=== PATIENT | male | born 1990 | race Caucasian/White ===

== ENCOUNTER → 2019-07-05 13:22 | Outpatient (BNVA) | payer OTHER, SELFPAY | PROVIDERS: Family Provider Nurse Practitioner; PCP Nurse Practitioner; Visit Provider Psychiatry & Neurology Psychiatry | DX: F41.1 Generalized anxiety disorder (principal); F33.1 Major depressive disorder, recurrent, moderate | CPT/HCPCS: 99214 ==

== ENCOUNTER 2020-09-22 13:02 | Emergency (ER) | payer SELFPAY ==
[2020-09-22 13:08] VITALS: BP 145/83; PULSE 91; RESP 18; TEMP 36.8; O2SAT 94; BMI 35.9
--- NOTE | 2020-09-22 14:14 | ED_ITS ---
HPI - Abdominal Pain General: Chief Complaint: Abdominal Pain Stated Complaint: severe lower abd pains Time Seen by Provider: 09/22/20 14:04 History of Present Illness: HPI narrative: Patient is a 30-year-old male comes to the ED with abdominal pain. Patient was seen at urgent care today and was sent here for abdominal imaging. Patient has had diarrhea for the past 3 months. Yesterday he said he started having blood in the stool. He says today there is less blood in his stool currently. He says he is having 5+ episodes of diarrhea Monday. Abdominal pain is located in the lower part of the abdomen bilaterally and he rates the pain currently a 7 out of 10. denies any fever, nausea or vomiting. Associated Symptoms: Reports diarrhea; Denies chills, constipation, dysuria, fever(s), hematochezia, hematuria, nausea and vomiting Review of Systems Const: Denies: fever(s), chills or fatigue Eyes: Denies: change in vision or eye discomfort ENMT: Denies: throat pain, odynophagia, nasal discharge or nasal congestion Card: Denies: chest pain, palpitations, edema, swelling of feet/ankles, dyspnea on exertion or orthopnea Resp: Denies: dyspnea, productive cough or non-productive cough GI: Reports: abdominal pain and diarrhea; Denies: nausea, vomiting, constipation or hematochezia : Denies: flank pain, difficulty urinating, dysuria or hematuria Musc: Denies: neck pain, back pain or extremity swelling Skin/Breast: Denies: rash or new lesions Neuro: Denies: headache(s), numbness in extremities or weakness in extremities PFS ED PFSH: Social History Smoking and tobacco status: current every day smoker cigarettes Quit status (tobacco): considering quitting Second hand smoke exposure: Yes Alcohol intake: current Alcohol intake frequency: few times a week Desire information about alcohol rehabilitation?: No Desire information about substance/drug rehabilitation?: No Physical Exam Const: COMMON NORMALS: no acute distress, patient oriented x3 and alert GENERAL APPEARANCE: cooperative and comfortable HENMT: COMMON NORMALS: normocephalic HEAD & SCALP: normocephalic MOUTH: Normal oral and palatal mucosa present THROAT: posterior oropharynx normal and uvula midline Eye: COMMON NORMALS: Equal, round and reactive pupils present PUPIL: Yes Equal, round and reactive pupils present Neck/C-Spine: COMMON NORMALS: supple GENERAL: Yes normal visual inspection Resp: COMMON NORMALS: normal respiratory effort, No retractions, No use of accessory muscles and clear to auscultation bilaterally AUSCULTATION: clear to auscultation bilaterally Cardio: COMMON NORMALS: regular rate, regular rhythm, S1 normal heart sound present, S2 normal heart sound present, No gallops present (Cardio), No clicks present (Cardio), No murmurs present (Cardio) and Peripheral pulses 2+ throughout RATE: regular rate RHYTHM: regular rhythm HEART SOUNDS: S1 normal heart sound present and S2 normal heart sound present PERIPHERAL PULSES: Peripheral pulses 2+ throughout GI: COMMON NORMALS: Normal to inspection, nondistended, normoactive bowel sounds present, Soft to palpation and no masses PALPATION: Yes Soft to palpation and Yes Tenderness to palpation present (GI) (Bilateral lower abdominal tenderness.) Details: LLQ and RLQ : COMMON NORMALS: Yes no CVA tenderness BLADDER/KIDNEY EXAM: Yes no CVA tenderness Back/Pelvis: COMMON NORMALS: no CVA tenderness Extremity: COMMON NORMALS: normal to inspection and no pedal edema Neuro: COMMON NORMALS: patient oriented x3 SENSORIUM/ORIENTATION: Yes alert GAIT: Yes Normal gait present Skin: GENERAL SKIN EXAM: dry skin Course Vital Signs: Vital signs: Vital Signs Temperature 98.3 F 09/22/20 13:08 Pulse Rate 92 09/22/20 15:35 Respiratory Rate 18 09/22/20 13:08 Blood Pressure 130/94 09/22/20 15:35 Pulse Oximetry 98 09/22/20 15:35 MDM - Abdominal Pain MDM Narrative: Medical decision making narrative: Patient is a 30 male that comes to the ED with some mild lower abdominal pain and 3 months of diarrhea. He was referred here to the ED by urgent care. Patient appeared nontoxic and in no acute distress and he had some cramping lower abdominal pain that improves after bowel movements. Patient appears in no acute distress or pain. He had some mild lower abdominal tenderness upon palpation. Rest of exam is benign. CBC, CMP and lipase were unremarkable. CT of the abdomen showed no acute findings to explain patient's symptoms. Patient diagnosed with gastroenteritis and discharged home with a prescription for Bentyl and Zofran. He was told to follow-up with his PCP in 7 to 10 days for reevaluation. Return to ED precautions given. Patient understood agree with plan. Lab Data: Attestation: I reviewed the patient's lab results. Labs: Lab Results 09/22/20 09/22/20 09/22/20 Range/Units 14:10 14:18 14:18 WBC 11.3 H (4.0-10.0) 10^3/ uL RBC 5.37 H (4.1-5.3) 10^6/u L Hgb 17.7 H (11.7-16.6) g/dL Hct 51.3 (42.0-52.0) % MCV 95.5 H (80-94) fL MCH 33.0 (28.0-34.0) pg MCHC 34.5 (30.0-36.0) g/dL RDW 11.9 L (12.1-15.1) % Plt Count 289 (130-400) 10^3/c mm MPV 9.4 (7.4-10.4) fL Neut % (Auto) 65.7 % Lymph % (Auto) 23.1 % Borden % (Auto) 7.7 % Eos % (Auto) 1.8 % Baso % (Auto) 0.8 % Neut # (Auto) 7.42 (1.8-7.7) 10^3/u L Lymph # (Auto) 2.6 (0.8-4.8) 10^3/u L Borden # (Auto) 0.9 (0.2-0.9) 10^3/u L Eos # (Auto) 0.2 (0.0-0.8) 10^3/u L Baso # (Auto) 0.1 (0.0-0.1) 10^3/u L Nucleated RBC % (a uto) 0 % Nucleated RBCs # 0.0 /100WBC Sodium 140 (136-145) mmol/L Potassium 3.7 (3.5-5.1) mmol/L Chloride 103 (98-107) mmol/L Carbon Dioxide 24 (22-29) mmol/L Anion Gap 16.7 (5-19) BUN 6 (6-20) mg/dL Creatinine 0.7 (0.7-1.2) mg/dL GFR Calculation 134.3 H (90-130) mL/min Glucose 91 (65-115) mg/dL Calculated Osmolal ity 287 (285-295) mOsm/k g Calcium 9.0 (8.5-10.5) mg/dL Total Bilirubin 0.8 (0.15-1.2) mg/dL AST 110 H (0-40) U/L ALT 196 H (0-41) U/L Alkaline Phosphata se 75 (40-130) IU/L Total Protein 6.9 (6.6-8.7) g/dL Albumin 4.7 (3.5-5.2) g/dL Globulin 2.2 (1.3-4.6) g/dL Lipase 18 (13-60) U/L Urine Color Straw (Yellow) Urine Appearance Clear (CLEAR) Urine pH 6 (5-7) Ur Specific Gravit y 1.000 L (1.005-1.030) Urine Protein Neg (Negative) Urine Glucose (UA) Norm (Normal) Urine Ketones Negative (Negative) Urine Blood Neg (Negative) Urine Nitrate Negative (Negative) Urine Bilirubin Neg (Negative) Urine Urobilinogen Norm (Negative) mg/dL Ur Leukocyte Sindy ase Negative (Negative) Imaging Data ^: CT Abd/Pel: Attestation: I personally reviewed and interpreted this imaging study as follows: Radiologist's impression: [address] [address] [address] Scan Report Signed Patient: Shahriar Baker Unit #: [id number] : 1990 Age/Sex: 30 / M ADM Date: 09/22/20 Loc: ER Room/Bed: Attending Dr: Ordering Provider/Ordering MD: Armand Tena Date of Service: 09/22/20 Procedure(s): CT abdomen pelvis w con* [id number] Accession Number(s): [id number] Report Number: [id number] WS: [id number] CT ABDOMEN PELVIS TECHNIQUE: Contrast-enhanced CT of the abdomen and pelvis with coronal and sagittal reformatted images. CLINICAL INFORMATION: lower abdominal pain and diarrhea COMPARISON: October 29, 2014 DLP: 1963.[address] scans at [facility] use at least one of these dose optimization techniques: automated exposure control; mA and/or kV adjustment per patient size (includes targeted exams where dose is matched to clinical indication); or iterative reconstruction. FINDINGS: Diffuse fatty infiltration of the liver. Hepatomegaly. Normal spleen. Normal GE junction. Adrenal glands are normal. Normal pancreatic parenchymal enhancement. Lung bases are well aerated. Subsegmental atelectasis in the lingula. Normal renal parenchymal enhancement. No hydronephrosis. No abdominal or pelvic lymphadenopathy. No inguinal lymphadenopathy. Normal sigmoid colon. A few colonic diverticuli. No evidence of diverticulitis. Colon is otherwise normal in appearance. Normal terminal ileum. No evidence of small or large bowel obstruction. CT/CT abdomen pelvis w con* [id number] IMPRESSION: 1. Hepatomegaly with diffuse fatty infiltration liver. 2. Normal sigmoid colon. A few colonic diverticuli. No evidence of acute diverticulitis. 3. No evidence of small or large bowel obstruction. 4. Fat-containing umbilical hernia. 5. No free fluid in the abdomen or pelvis. 6. No other significant findings. Dictated By: Michael Maguire MD Signed By: Michael Maguire MD Signed Date/Time: 09/22/20 1500 DD/ 1444 Discharge Plan Discharge Patient Disposition: Home Clinical Impression: Gastroenteritis Condition: Stable Prescriptions: New dicyclomine 20 mg tablet 20 mg PO QID PRN (Reason: abdominal pain) Qty: 30 RF: 0 Zofran 4 mg tablet 4 mg PO Q8H PRN (Reason: nausea and vomiting) Qty: 20 RF: 0 No Action ibuprofen 200 mg tablet 800 mg PO Q6H PRN (Reason: fever or pain) RF: 0 acetaminophen [Tylenol] 325 mg capsule 325 mg PO QID PRN (Reason: Pain) RF: 0 Prilosec OTC 20 mg Tablet,Delayed Release (Dr/Ec) 20 mg PO BID RF: 0 Discharge Orders: Discharge ED (Routine); Ordered 09/22/20 Ordered By: Armand Tena Discharge Diet: Advance as tolerated and Clear Liquid Discharge Activity: Increase activity as tolerated Patient Instructions: Gastroenteritis (ED), Opioid Safety Activity Restrictions/Additional Instructions: Follow-up with medical provider as directed. Take medications as prescribed. Start with a clear liquid diet then advance diet as tolerated. Return to the ER or your medical provider if condition worsens.Please read and understand discharge instructions. Thank you for choosing [facility] for your healthcare needs today. Please realize this is an emergency room and that we are providing you with a medical screening exam and this may not be complete and all inclusive of all the testing and or work up that you may need to determine your ailment or severity of your illness. It is very important that you follow up as instructed or that you return to the Emergency Department should you have concerns or if your condition changes or worsens in any way. Coding Level of Care Code ED Bean Picker Machine Operator for Wilder Jackson Exam Comprehensive
[2020-09-22 14:23] LABS: Add Urine Microscopic? NO; Charge for UA Resulting for Rev
[2020-09-22] MEDS: sodium chloride 0.9% 1,000 ML 999 ML IV (14:24)
[2020-09-22] MEDS: ondansetron 2 mg/ML SDV 2 mL 4 MG IVP (14:25)
--- NOTE | 2020-09-22 14:25 | CT_ITS ---
WS: [id number] CT ABDOMEN PELVIS TECHNIQUE: Contrast-enhanced CT of the abdomen and pelvis with coronal and sagittal reformatted image s. CLINICAL INFORMATION: lower abdominal pain and diarrhea COMPARISON: October 29, 2014 DLP: 1963.[address] scans at [facility] use at least one of these dose optimization techniques: automat ed exposure control; mA and/or kV adjustment per patient size (includes targeted exams where dose is matched to clinical indication); or iterative reconstruction. FINDINGS: Diffuse fatty infiltration of the liver. Hepatomegaly. Normal spleen. Normal GE junction. Adrenal gla nds are normal. Normal pancreatic parenchymal enhancement. Lung bases are well aerated. Subsegmental atelectasis in the lingula. Normal renal parenchymal enhancement. No hydronephrosis. No abdominal or pelvic lymphadenopathy. No inguinal lymphadenopathy. Normal sigmoid colon. A few colonic diverticuli. No evidence of diverticulitis. Colon is otherwise no rmal in appearance. Normal terminal ileum. No evidence of small or large bowel obstruction. CT/CT abdomen pelvis w con* [id number] IMPRESSION: 1. Hepatomegaly with diffuse fatty infiltration liver. 2. Normal sigmoid colon. A few colonic diverticuli. No evidence of acute diver ticulitis. 3. No evidence of small or large bowel obstruction. 4. Fat-containing umbilical hernia. 5. No free fluid in the abdomen or pelvis. 6. No other significant findings.
[2020-09-22 14:28] VITALS: BP 132/96; PULSE 89; O2SAT 96
[2020-09-22 14:31] LABS: Basophils # 0.1 10^3/uL (0.0-0.1); Basophils % 0.8 %; Eosinophils # 0.2 10^3/uL (0.0-0.8); Eosinophils % 1.8 %; Hematocrit 51.3 % (42.0-52.0); Hemoglobin 17.7 g/dL (11.7-16.6); Lymphocytes # 2.6 10^3/uL (0.8-4.8); Lymphocytes % 23.1 %; Mean Corpuscular HGB Conc 34.5 g/dL (30.0-36.0); Mean Corpuscular Volume 95.5 fL (80-94); Mean Platelet Volume 9.4 fL (7.4-10.4); Monocytes # 0.9 10^3/uL (0.2-0.9); Monocytes % 7.7 %; Neutrophils # 7.42 10^3/uL (1.8-7.7); Neutrophils % 65.7 %; Nucleated Red Blood Cells % 0 %; Platelet Count 289 10^3/cmm (130-400); Red Blood Count 5.37 10^6/uL (4.1-5.3); Red Cell Distribution Width 11.9 % (12.1-15.1); White Blood Count 11.3 10^3/uL (4.0-10.0)
[2020-09-22] MEDS: iohexol 300 mg/mL 100 mL Btl IV (14:35)
[2020-09-22 14:40] LABS: Bilirubin Urine Neg (Negative); Blood Urine Neg (Negative); Glucose Urine UA Norm (Normal); Ketones Urine Negative (Negative); Leukocyte Esterase Urine Negative (Negative); Nitrate Urine Negative (Negative); Protein Urine Neg (Negative); Urine Appearance Clear (CLEAR); Urine Color Straw (Yellow); Urobilinogen Urine Norm (Negative); pH Urine 6 (5-7)
[2020-09-22 15:11] LABS: Alanine Aminotransferase 196 U/L (0-41); Albumin Level 4.7 g/dL (3.5-5.2); Alkaline Phosphatase 75 IU/L (40-130); Anion Gap 16.7 (5-19); Aspartate Amino Transferase 110 U/L (0-40); Blood Urea Nitrogen 6 mg/dL (6-20); Carbon Dioxide 24 mmol/L (22-29); Chloride 103 mmol/L (98-107); Globulin 2.2 g/dL (1.3-4.6); Glomerular Filtration Rate 134.3 mL/min (90-130); Glucose 91 mg/dL (65-115); Lipase 18 U/L (13-60); Osmolality Calculated 287 mOsm/kg (285-295); Potassium 3.7 mmol/L (3.5-5.1); Sodium 140 mmol/L (136-145); Total Bilirubin 0.8 mg/dL (0.15-1.2); Total Protein 6.9 g/dL (6.6-8.7)
[2020-09-22 15:35] VITALS: BP 130/94; PULSE 92; O2SAT 98
== END 2020-09-22 15:35 | disposition home or self-care (01) ==
PROVIDERS: Family Medicine; Emergency Provider Physician Assistant
DX: K52.9 Noninfective gastroenteritis and colitis, unspecified (principal); F17.210 Nicotine dependence, cigarettes, uncomplicated
CPT/HCPCS: 74177; 80053; 81003; 83690; 85025; 96361; 96374; 99283; J2405; J7030; Q9967

== ENCOUNTER → 2020-11-18 11:58 | Outpatient (BNVA) | payer OTHER, SELFPAY | PROVIDERS: Visit Provider Nurse Practitioner Family | DX: Z20.822 Contact with and (suspected) exposure to COVID-19 (principal) | CPT/HCPCS: 87635 ==

== ENCOUNTER 2020-12-21 16:48 | Emergency (ER) | payer SELFPAY ==
[2020-12-21 17:16] VITALS: BP 142/92; PULSE 111; RESP 16; TEMP 36.9; O2SAT 97; BMI 35.6
--- NOTE | 2020-12-21 18:00 | USR_ITS ---
PROCEDURE INFORMATION: Exam: US Duplex Left Lower Extremity Veins, Limited Exam date and time: 12/21/2020 6:00 PM Age: 30 years old Clinical indication: Pain; Leg, lower; Left; Additional info: Swelling and calf tenderness TECHNIQUE: Imaging protocol: Real-time Duplex ultrasound of the Left Lower Extremity with 2-D kelley scale, color Doppler flow and spectral waveform analysis with image documentation. Limited exam focused on the left lower extremity veins. COMPARISON: CT abdomen pelvis w con* [id number] 09/22/2020 2:31 PM FINDINGS: Left deep veins: DVT in the peroneal vein. Otherwise, the common femoral, femoral, proximal profunda femoral and popliteal veins are patent without thrombus. Left superficial veins: Unremarkable. Saphenofemoral junction is patent without thrombus. Soft tissues: Unremarkable. US/CV venous duplex [facility] [id number] IMPRESSION: DVT in the peroneal vein.
--- NOTE | 2020-12-21 18:42 | ED_ITS ---
HPI - Extremity Problem General: Chief complaint: Extremity Injury, Lower Stated complaint: Left Leg Pain in lower half Time Seen by Provider: 12/21/20 18:42 History of Present Illness: HPI Narrative: Mr. Baker is a 30-year-old gentleman with history of tobaccoism and IBS who presents the emergency department due to lower extremity injury. He first noticed dull aching which was progressive in his left calf area on 12/16. He denies specific known provoking injury, laceration, bug bite, or movement. Since that time it has continued and has continued to worsen. He now has associated lower extremity edema. His symptoms are worse with palpation and movement but do not go with rest. No sensory changes. He denies similar episodes in the past. He does have positive family history for blood clots. No recent long travel or surgeries. No other changes in health, exacerbating, or alleviating factors identified. Review of Systems General: Reports: 10 or more systems reviewed and unremarkable except in HPI and below Narrative: CONSTITUTIONAL: denies fever, fatigue, weakness EYES - denies pain, denies loss of vision EARS - denies ear issues. NOSE - denies congestion or rhinorrhea. THROAT - denies sore throat or difficulty swallowing. CARDIOVASCULAR - denies chest pain and palpitations RESPIRATORY - denies shortness of breath and cough GASTROINTESTINAL - denies abdominal pain, no nausea vomiting, no changes in bowel habits GENITOURINARY - denies dysuria or urinary frequency MUSCULOSKELETAL-see HPI SKIN - denies rashes or new changed skin lesions NEUROLOGIC - denies focal weakness or sensory changes HEMATOLOGIC/LYMPHATIC - denies easy bruising or lymphadenopathy. [facility] ED PFSH: Social History Smoking and tobacco status: current every day smoker cigarettes Second hand smoke exposure: Yes Alcohol intake: current Alcohol intake frequency: few times a week Desire information about alcohol rehabilitation?: No Desire information about substance/drug rehabilitation?: No Physical Exam Narrative: EXAM NARRATIVE: GENERAL/CONSTITUTIONAL - well-appearing. No acute distress. Eyes - PERRL, no conjunctival injection ENMT - Atraumatic external nose and ears. Moist mucous membranes NECK - supple. trachea midline CARDIOVASCULAR - regular rate and rhythm. Peripheral pulses 2+ and equal RESPIRATORY -clear to auscultation bilaterally. No retractions or accessory muscle use. ABDOMEN/GI - Nontender/Nondistended. No tenderness to percussion or evidence of peritonitis MSK -left lower extremity with swelling, overlying skin discoloration on the posterior calf with tenderness to palpation. No evidence of cellulitis or rash/vesicular skin lesions. SKIN - Warm, Dry NEURO - alert and appropriately oriented. strength and sensation intact. Moves all extremities equally. PSYCH - Appropriate mood and affect Course ED course: - Patient was seen and evaluated by me at bedside - Patient placed on cardiac monitors, IV access obtained - Initial evaluation notable for calf swelling as noted above with tenderness palpation - Imaging notable for DVT - Upon serial reexamination after treatment the patient was similar - Based on patient history, evaluation, labs, and imaging as interpreted the most likely cause of the patient's condition is DVT - The results of ED evaluation were discussed with the patient including prescriptions and/or symptomatic cares (if applicable) including appropriate and responsible use as well as risk of bleeding, followup plan, and return precautions. The patient verbalized understanding and felt safe for discharge. - Patient discharged in satisfactory condition. Vital Signs: Vital signs: Vital Signs Temperature 98.5 F 12/21/20 17:16 Pulse Rate 99 12/21/20 20:52 Respiratory Rate 16 12/21/20 20:52 Blood Pressure 132/114 12/21/20 20:52 Pulse Oximetry 97 12/21/20 20:52 MDM - Extremity (Nontraumatic) Medical Records: Attestation: I reviewed the patient's medical records. Lab Data: Attestation: I reviewed the patient's lab results. Discharge Plan Discharge Patient Disposition: Home Clinical Impression: DVT (deep venous thrombosis) Condition: Stable Prescriptions: Luis E Dewey DVT-PE Treat 30D Start 5 mg (74 tabs) tablets,dose pack See Rx Instructions .ROUTE .COMPLEX Qty: 74 RF: 0 oxycodone 5 mg tablet 5 mg PO Q4H PRN (Reason: pain) Qty: 10 RF: 0 No Action ibuprofen 200 mg tablet 800 mg PO Q6H PRN (Reason: fever or pain) RF: 0 acetaminophen [Tylenol] 325 mg capsule 325 mg PO QID PRN (Reason: Pain) RF: 0 omeprazole magnesium [Prilosec OTC] 20 mg Tablet,Delayed Release (Dr/Ec) 20 mg PO BID RF: 0 dicyclomine 20 mg tablet 20 mg PO QID PRN (Reason: abdominal pain) Qty: 30 RF: 0 Discharge Orders: Discharge ED (Routine); Ordered 12/21/20 Ordered By: Lex Brandon Discharge Diet: Usual diet Discharge Activity: Resume usual activity Patient Instructions: Deep Venous Thrombosis (ED), Opioid Safety Activity Restrictions/Additional Instructions: Thank you for visiting the emergency department. You were seen and evaluated for leg pain. He was found to have a deep vein thrombosis which will be treated with a medication called Eliquis. As discussed this increases risk of major or minor bleeding. Please follow-up with your primary care provider. Please return to the emergency department for any trauma, bleeding, uncontrolled pain, or anything else that you are concerned about and feel needs emergency department evaluation. Stand Alone Forms: Work/School Release Coding Level of Care Code ED Mandolin Repairer for Wilder Jackson
[2020-12-21 19:10] VITALS: BP 136/94; PULSE 98; RESP 16; O2SAT 97
[2020-12-21] MEDS: apixaban 5 mg Tablet 10 MG PO (20:33)
[2020-12-21 20:52] VITALS: BP 132/114; PULSE 99; RESP 16; O2SAT 97
== END 2020-12-21 20:53 | disposition home or self-care (01) ==
PROVIDERS: Emergency Provider Emergency Medicine
DX: I82.452 Acute embolism and thrombosis of left peroneal vein (principal); F17.210 Nicotine dependence, cigarettes, uncomplicated
CPT/HCPCS: 93971; 99283

== ENCOUNTER 2021-01-04 11:19 | Emergency (ER) | payer SELFPAY ==
[2021-01-04 11:45] VITALS: BP 135/82; PULSE 117; RESP 18; TEMP 36.6; O2SAT 92; BMI 35.6
--- NOTE | 2021-01-04 12:02 | XR_ITS ---
WS: [id number] Exam: XR chest 1V portable [id number] Date/Time of Exam: 01/04/2021 12:22 PM Reason For Exam: cough and fever Comparison 01/04/2021 Findings: The lungs are clear and fully expanded. Costophrenic angles are sharp. No infiltrates. Bronchovascula r relief appears normal. Cardiac silhouette is unremarkable. Bony elements are intact. XR/XR chest 1V portable [id number] IMPRESSION: Unremarkable chest radiograph.
[2021-01-04 15:07] LABS: Basophils # 0.1 10^3/uL (0.0-0.1); Basophils % 0.7 %; Eosinophils # 0.1 10^3/uL (0.0-0.8); Eosinophils % 0.7 %; Hematocrit 54.1 % (42.0-52.0); Hemoglobin 18.4 g/dL (11.7-16.6); Lymphocytes # 2.8 10^3/uL (0.8-4.8); Lymphocytes % 18.8 %; Mean Corpuscular Hemoglobin 34.6 pg (28.0-34.0); Mean Corpuscular Volume 101.7 fl (80-94); Mean Platelet Volume 9.3 fL (7.4-10.4); Monocytes # 1.3 10^3/uL (0.2-0.9); Monocytes % 8.5 %; Neutrophils # 10.51 10^3/uL (1.8-7.7); Neutrophils % 70.6 %; Nucleated Red Blood Cells % 0 %; Platelet Count 315 10^3/cmm (130-400); Red Blood Count 5.32 10^6/uL (4.1-5.3); Red Cell Distribution Width 12.8 % (12.1-15.1); White Blood Count 14.9 10^3/uL (4.0-10.0)
[2021-01-04 15:17] LABS: Alanine Aminotransferase 170 U/L (0-41); Albumin Level 4.5 g/dL (3.5-5.2); Alkaline Phosphatase 93 IU/L (40-130); Anion Gap 19.3 (5-19); Aspartate Amino Transferase 107 U/L (0-40); Blood Urea Nitrogen 4 mg/dL (6-20); Calcium 9.7 mg/dL (8.5-10.5); Carbon Dioxide 26 mmol/L (22-29); Chloride 97 mmol/L (98-107); Globulin 2.8 g/dL (1.3-4.6); Glomerular Filtration Rate 115.1 mL/min (90-130); Glucose 108 mg/dL (65-115); Lipase 14 U/L (13-60); Osmolality Calculated 285 mOsm/kg (285-295); Potassium 3.3 mmol/L (3.5-5.1); Sodium 139 mmol/L (136-145); Total Bilirubin 0.6 mg/dL (0.15-1.2); Total Protein 7.3 g/dL (6.6-8.7)
--- NOTE | 2021-01-04 16:06 | W.ED.URI ---
HPI - URI/Sore Throat General: Chief Complaint: Upper Respiratory Infection Stated Complaint: TROUBLE BREATHING/FEVER/COUGH N/V Time Seen by Provider: 01/04/21 15:39 History of Present Illness: HPI Narrative: Patient is a 30-year-old male comes to the ED with upper respiratory symptoms. Symptoms started approximately 2 days ago. He is complaining of having a fever, cough and nasal congestion drainage. He says his cough is productive and he gets up a yellow and white sputum. He is also explained of having some body aches. He has not had any known Covid exposures. He is able to keep food and fluids down. Associated symptoms: Reports diarrhea (IBS), fever(s), nasal congestion, nausea (resolved) and vomiting (resolved); Deny abdominal pain, chills, chest pain or headache(s) Review of Systems Const: Reports: fever(s) and body aches; Denies: chills or fatigue Eyes: Denies: change in vision or eye discomfort ENMT: Reports: throat pain, nasal discharge and nasal congestion; Denies: odynophagia Card: Denies: chest pain, palpitations, edema, swelling of feet/ankles, dyspnea on exertion or orthopnea Resp: Reports: productive cough; Denies: dyspnea or non-productive cough GI: Reports: nausea (resolved), vomiting (resolved) and diarrhea (IBS); Denies: abdominal pain, constipation or hematochezia : Denies: flank pain, difficulty urinating, dysuria or hematuria Musc: Denies: neck pain, back pain or extremity swelling Skin/Breast: Denies: rash or new lesions Neuro: Denies: headache(s), numbness in extremities or weakness in extremities PFS ED PFSH: Social History Smoking and tobacco status: current every day smoker cigarettes Second hand smoke exposure: Yes Alcohol intake: current Alcohol intake frequency: few times a week Desire information about alcohol rehabilitation?: No Desire information about substance/drug rehabilitation?: No Physical Exam Const: COMMON NORMALS: no acute distress, patient oriented x3 and alert GENERAL APPEARANCE: cooperative and comfortable HENMT: COMMON NORMALS: normocephalic HEAD & SCALP: normocephalic MOUTH: Normal oral and palatal mucosa present THROAT: posterior oropharynx normal and uvula midline Eye: GENERAL EYE: appearance normal, both eyes and all related structures Neck/C-Spine: COMMON NORMALS: supple GENERAL: Yes normal visual inspection Resp: COMMON NORMALS: normal respiratory effort, No retractions, No use of accessory muscles and clear to auscultation bilaterally AUSCULTATION: clear to auscultation bilaterally Cardio: COMMON NORMALS: regular rate, regular rhythm, S1 normal heart sound present, S2 normal heart sound present, No gallops present (Cardio), No clicks present (Cardio), No murmurs present (Cardio) and Peripheral pulses 2+ throughout RATE: regular rate RHYTHM: regular rhythm HEART SOUNDS: S1 normal heart sound present and S2 normal heart sound present PERIPHERAL PULSES: Peripheral pulses 2+ throughout GI: COMMON NORMALS: Normal to inspection, nondistended, normoactive bowel sounds present, Soft to palpation, non-tender and no masses PALPATION: Yes Soft to palpation : COMMON NORMALS: Yes no CVA tenderness BLADDER/KIDNEY EXAM: Yes no CVA tenderness Back/Pelvis: COMMON NORMALS: no CVA tenderness Extremity: COMMON NORMALS: normal to inspection Neuro: COMMON NORMALS: patient oriented x3 and moves all extremities SENSORIUM/ORIENTATION: Yes alert Skin: GENERAL SKIN EXAM: dry skin Course Vital Signs: Vital signs: Vital Signs Temperature 97.9 F 01/04/21 16:33 Pulse Rate 120 H 01/04/21 16:33 Respiratory Rate 18 01/04/21 11:45 Blood Pressure 132/80 01/04/21 16:33 Pulse Oximetry 95 01/04/21 16:33 MDM - URI/Sore Throat MDM Narrative: Medical decision making narrative: Patient is a 30-year-old male comes to the ED with upper respiratory symptoms. Patient afebrile and vitals are stable. Exam was benign. Labs were unremarkable. Chest x-ray showed no acute findings. Covid negative. Strep negative. Patient diagnosed with bronchitis and discharged home with a prescription for a Medrol Dosepak and Z-Jarad. Also sent home with some Tessalon Perles and Zofran prescriptions. Follow-up with PCP in 7 to 10 days for reevaluation. Return to ED precautions given. Patient understood and agree with plan. Lab Data: Attestation: I reviewed the patient's lab results. Labs: Lab Results 01/04/21 01/04/21 01/04/21 14:44 14:44 17:07 WBC 14.9 10^3/uL H 10 ^3/uL (4.0-10.0) RBC 5.32 10^6/uL H 10 ^6/uL (4.1-5.3) Hgb 18.4 g/dL H g/dL (11.7-16.6) Hct 54.1 % H % (42.0-52.0) MCV 101.7 fl H fl (80-94) MCH 34.6 pg H pg (28.0-34.0) MCHC 34.0 g/dL g/dL (30.0-36.0) RDW 12.8 % % (12.1-15.1) Plt Count 315 10^3/cmm 10^3 /cmm (130-400) MPV 9.3 fL fL (7.4-10.4) Neut % (Auto) 70.6 % % Lymph % (Auto) 18.8 % % [place] % (Auto) 8.5 % % Eos % (Auto) 0.7 % % Baso % (Auto) 0.7 % % Neut # (Auto) 10.51 10^3/uL H 1 0^3/uL (1.8-7.7) Lymph # (Auto) 2.8 10^3/uL 10^3/ uL (0.8-4.8) [place] # (Auto) 1.3 10^3/uL H 10^ 3/uL (0.2-0.9) Eos # (Auto) 0.1 10^3/uL 10^3/ uL (0.0-0.8) Baso # (Auto) 0.1 10^3/uL 10^3/ uL (0.0-0.1) Nucleated RBC % (a uto) 0 % % Nucleated RBCs # 0.0 /100WBC /100W BC Sodium 139 mmol/L mmol/L (136-145) Potassium 3.3 mmol/L L mmol /L (3.5-5.1) Chloride 97 mmol/L L mmol/ L (98-107) Carbon Dioxide 26 mmol/L mmol/L (22-29) Anion Gap 19.3 H (5-19) BUN 4 mg/dL L mg/dL (6-20) Creatinine 0.8 mg/dL mg/dL (0.7-1.2) GFR Calculation 115.1 mL/min mL/m in (90-130) Glucose 108 mg/dL mg/dL (65-115) Calculated Osmolal ity 285 mOsm/kg mOsm/ kg (285-295) Calcium 9.7 mg/dL mg/dL (8.5-10.5) Total Bilirubin 0.6 mg/dL mg/dL (0.15-1.2) AST 107 U/L H U/L (0-40) ALT 170 U/L H U/L (0-41) Alkaline Phosphata se 93 IU/L IU/L (40-130) Total Protein 7.3 g/dL g/dL (6.6-8.7) Albumin 4.5 g/dL g/dL (3.5-5.2) Globulin 2.8 g/dL g/dL (1.3-4.6) Lipase 14 U/L U/L (13-60) SARS-CoV-2 Ag (Rap id) Group A Strep Rapi d Negative (Negative) 01/04/21 17:07 WBC RBC Hgb Hct MCV MCH MCHC RDW Plt Count MPV Neut % (Auto) Lymph % (Auto) [place] % (Auto) Eos % (Auto) Baso % (Auto) Neut # (Auto) Lymph # (Auto) [place] # (Auto) Eos # (Auto) Baso # (Auto) Nucleated RBC % (a uto) Nucleated RBCs # Sodium Potassium Chloride Carbon Dioxide Anion Gap BUN Creatinine GFR Calculation Glucose Calculated Osmolal ity Calcium Total Bilirubin AST ALT Alkaline Phosphata se Total Protein Albumin Globulin Lipase SARS-CoV-2 Ag (Rap id) Negative (Negative) Group A Strep Rapi d Imaging Data^: CXR: Attestation: I personally reviewed and interpreted this imaging study as follows: Radiologist's impression: [address] [address] XRay Report Signed Patient: Shahriar Baker Unit #: [id number] : 1990 Age/Sex: 30 / M ADM Date: 01/04/21 Loc: ER Room/Bed: Attending Dr: Ordering Provider/Ordering MD: Armand Tena Date of Service: 01/04/21 Procedure(s): XR chest 1V portable [id number] Accession Number(s): [id number] Report Number: [id number] WS: [id number] Exam: XR chest 1V portable [id number] Date/Time of Exam: 01/04/2021 12:22 PM Reason For Exam: cough and fever Comparison 01/04/2021 Findings: The lungs are clear and fully expanded. Costophrenic angles are sharp. No infiltrates. Bronchovascular relief appears normal. Cardiac silhouette is unremarkable. Bony elements are intact. XR/XR chest 1V portable [id number] IMPRESSION: Unremarkable chest radiograph. Dictated By: Neil Boss DO Signed By: Neil Boss DO Signed Date/Time: 01/04/21 1240 DD/ 1239 Discharge Plan Discharge Patient Disposition: Home Clinical Impression: Bronchitis Condition: Stable Prescriptions: New azithromycin 250 mg tablet See Rx Instructions .ROUTE .COMPLEX Qty: 6 RF: 0 Medrol (Jarad) 4 mg tablets,dose pack See Rx Instructions .ROUTE .COMPLEX Qty: 21 RF: 0 Tessalon Perles 100 mg capsule 100 mg PO TID PRN (Reason: cough) Qty: 10 RF: 0 Zofran 4 mg tablet 4 mg PO Q8H PRN (Reason: nausea and vomiting) Qty: 10 RF: 0 No Action ibuprofen 200 mg tablet 800 mg PO Q6H PRN (Reason: fever or pain) RF: 0 acetaminophen [Tylenol] 325 mg capsule 325 mg PO QID PRN (Reason: Pain) RF: 0 omeprazole magnesium [Prilosec OTC] 20 mg Tablet,Delayed Release (Dr/Ec) 20 mg PO BID RF: 0 dicyclomine 20 mg tablet 20 mg PO QID PRN (Reason: abdominal pain) Qty: 30 RF: 0 Eliquis DVT-PE Treat 30D Start 5 mg (74 tabs) tablets,dose pack See Rx Instructions .ROUTE .COMPLEX Qty: 74 RF: 0 oxycodone 5 mg tablet 5 mg PO Q4H PRN (Reason: pain) Qty: 10 RF: 0 Discharge Orders: Discharge ED (Routine); Ordered 01/04/21 Ordered By: Armand Tena Discharge Diet: Regular Discharge Activity: Increase activity as tolerated Patient Instructions: Acute Bronchitis (ED) Activity Restrictions/Additional Instructions: Follow up with PCP in 7-10 days for reevaluation. Take medications as prescribed. Drink plenty of fluids. Take OTC tylenol or motrin for fevers. Return to ED if worsening symptoms. 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
[2021-01-04 16:33] VITALS: BP 132/80; PULSE 120; TEMP 36.6; O2SAT 95
[2021-01-04] MEDS: potassium chloride ER 20 mEq Tablet PO (17:24)
[2021-01-04 17:35] LABS: Rapid Strep A Test Negative (Negative)
[2021-01-04 17:58] LABS: SARS Covid-2 Antigen Negative (Negative)
== END 2021-01-04 18:10 | disposition home or self-care (01) ==
PROVIDERS: Emergency Provider Physician Assistant
DX: J40 Bronchitis, not specified as acute or chronic (principal); Z79.01 Long term (current) use of anticoagulants; F17.210 Nicotine dependence, cigarettes, uncomplicated; Z20.822 Contact with and (suspected) exposure to COVID-19
CPT/HCPCS: 71045; 80053; 83690; 85025; 87040; 87081; 87426; 87880; 99282

== ENCOUNTER → 2021-04-12 14:48 | Outpatient (BNVA) | payer OTHER, SELFPAY | PROVIDERS: Visit Provider Nurse Practitioner Family | DX: Z20.822 Contact with and (suspected) exposure to COVID-19 (principal) | CPT/HCPCS: 87635 ==

== ENCOUNTER → 2021-04-16 15:48 | Outpatient (BNVA) | payer SELFPAY | PROVIDERS: Visit Provider Nurse Practitioner Family | DX: Z20.822 Contact with and (suspected) exposure to COVID-19 (principal) | CPT/HCPCS: 87635 ==

== ENCOUNTER 2022-10-24 14:53 | Emergency (ER) | payer MEDICAID, SELFPAY ==
[2022-10-24 15:36] VITALS: BP 111/72; PULSE 115; RESP 16; TEMP 36.9; O2SAT 97; BMI 33.6
--- NOTE | 2022-10-24 17:46 | XRR_ITS ---
PROCEDURE INFORMATION: Exam: XR Chest Exam date and time: 10/24/2022 5:57 PM Age: 32 years old Clinical indication: Cough; Additional info: Fever cough TECHNIQUE: Imaging protocol: Radiologic exam of the chest. Views: 1 view. COMPARISON: CR XR chest 1V portable [id number] 01/04/2021 12:32 PM FINDINGS: Lungs: Unremarkable. No consolidation. Pleural spaces: Unremarkable. No pleural effusion. No pneumothorax. Heart/Mediastinum: Unremarkable. No cardiomegaly. Bones/joints: Unremarkable. XR/XR chest 1V portable [id number] IMPRESSION: No acute findings.
--- NOTE | 2022-10-24 17:46 | USR_ITS ---
PROCEDURE INFORMATION: Exam: US Duplex Lower Extremity Veins, Bilateral Exam date and time: 10/24/2022 6:02 PM Age: 32 years old Clinical indication: Edema, localized; Lower extremity, bilateral; Patient HX: Bilateral le edema x 2-3 weeks. Prior history of multiple dvts. He is supposed to be taking eloquist, but canot afford it. ; Additional info: Swelling, pain, HX dvt, factor 5 leyden, no anticoagulation TECHNIQUE: Imaging protocol: Real-time duplex ultrasound of the bilateral extremities with 2-D kelley scale, color Doppler flow and spectral waveform analysis including responses to compression and other maneuvers (when performed) with image documentation. Complete exam focused on the lower extremity veins. COMPARISON: [place] [id number] 12/21/2020 7:22 PM FINDINGS: Right deep veins: Unremarkable. The common femoral, femoral, proximal profunda femoral and popliteal veins are patent without thrombus. Normal Doppler waveforms. Normal compressibility and/or augmentation response. Right superficial veins: Saphenofemoral junction is patent without thrombus. Left deep veins: Unremarkable. The common femoral, femoral, proximal profunda femoral and popliteal veins are patent without thrombus. Normal Doppler waveforms. Normal compressibility and/or augmentation response. Left superficial veins: Saphenofemoral junction is patent without thrombus. Soft tissues: Unremarkable. US/[place] [id number] IMPRESSION: No evidence of deep vein thrombosis.
--- NOTE | 2022-10-24 17:54 | ED_ITS ---
HPI - Extremity Problem General: Chief complaint: Extremity Injury, Lower Stated complaint: leg pain/swelling/numbness/wheezing Time Seen by Provider: 10/24/22 16:55 History of Present Illness: Patient presents to the ER with main complaint of swelling and pain in bilateral lower extremities. Patient does have factor V Leiden and is not on any type of anticoagulation not even a daily aspirin. He cannot afford the Eliquis that he should be on. He has been off of all anticoagulation for approximately 6 months. Patient also complains of cough congestion sore throat nausea he feels like this may be getting a little bit better. Patient states his ankles have been swelling and the pain in them has been increasing for the last couple weeks. Review of Systems General: Reports: 10 or more systems reviewed and unremarkable except in HPI and below PFSH ED PFSH: Social History Smoking and tobacco status: current every day smoker cigarettes Second hand smoke exposure: Yes Alcohol intake: current Alcohol intake frequency: few times a week Desire information about alcohol rehabilitation?: No Substance/Drug Use: current Substance/Drug use frequency: daily Other substance/drug use details: medicinal marijuana card Desire information about substance/drug rehabilitation?: No Physical Exam Const: COMMON NORMALS: no acute distress, average body habitus, patient oriented x3, no limitations, healthy appearing, alert and well nourished HENMT: COMMON NORMALS: normocephalic, atraumatic, hearing grossly normal bilaterally, external ears normal, Normal external nose present and moist oral mucous membranes HEAD & SCALP: normocephalic and atraumatic NOSE: Normal external nose present EXTERNAL EAR: Yes external ears normal Neck/C-Spine: COMMON NORMALS: full ROM, no lymphadenopathy, supple, no meningeal signs, no JVD and Thyroid normal THYROID: Thyroid normal Chest: COMMONS NORMALS: normal inspection of the chest and normal palpation of entire chest wall Resp: COMMON NORMALS: normal respiratory effort, No retractions, No use of accessory muscles and clear to auscultation bilaterally AUSCULTATION: clear to auscultation bilaterally Cardio: COMMON NORMALS: no JVD, regular rate, regular rhythm, S1 normal heart sound present, S2 normal heart sound present, No gallops present (Cardio), No clicks present (Cardio), No murmurs present (Cardio) and No rub (Cardio) RATE: regular rate RHYTHM: regular rhythm HEART SOUNDS: S1 normal heart so und present and S2 normal heart sound present GI: COMMON NORMALS: Normal to inspection, nondistended, normoactive bowel sounds present, Soft to palpation, non-tender, No hepatosplenomegaly present and no masses PALPATION: Yes Soft to palpation and Yes No hepatosplenomegaly present Extremity: NARRATIVE EXTREMITY EXAM: 1-2+ pitting edema bilateral lower extremities from mid [place]ois down. Mild to moderate tenderness to palpation with squeezing over the posterior calf. Neuro: COMMON NORMALS: patient oriented x3 SENSORIUM/ORIENTATION: Yes alert MENINGEAL SIGNS: Yes no meningeal signs Course Vital Signs: Vital signs: Vital Signs Temperature 98.7 F 10/24/22 18:10 Pulse Rate 107 H 10/24/22 18:10 Respiratory Rate 22 H 10/24/22 18:10 Blood Pressure 128/82 10/24/22 18:10 Pulse Oximetry 98 10/24/22 18:10 Oxygen Delivery Me thod Room Air 10/24/22 18:10 MDM - Extremity (Nontraumatic) Medical Decision Making Presents ER with complaints of leg swelling history of DVTs and factor V Leiden. Current anticoagulation. Lab work was obtained which showed a potassium of 2.7 , chest x-ray was negative and venous duplex ultrasound of bilateral lower extremities was negative. Patient was given 40 equivalents potassium any ER patient will be sent home with a prescription for potassium and should follow-up with his PCP in approximately 7 days to have his potassium rechecked. Patient should be at least on an 1 full-strength aspirin a day if he cannot afford any other type of anticoagulation. This was stressed to the patient in detail. Differential Diagnosis Likely lower extremity edema and deep vein thrombosis of lower extremity; Unlikely herpes zoster, gout, cellulitis, superficial thrombophlebitis or deep venous thrombosis of upper extremity Medical Records I reviewed the patient's medical records. Lab Data I reviewed the patient's lab results. 10/24/22 17:55 10/24/22 17:55 Radiology Impressions Chest X-Ray 10/24/22 17:46 IMPRESSION: No acute findings. Venous Duplex 10/24/22 17:46 IMPRESSION: No evidence of deep vein thrombosis. Laboratory Results WBC 13.9 10^3/uL (4.0-10.0) H 10/24/22 17:55 RBC 4.25 10^6/uL (4.1-5.3) 10/24/22 17:55 Hgb 16.2 g/dL (11.7-16.6) 10/24/22 17:55 Hct 46.2 % (42.0-52.0) 10/24/22 17:55 MCV 108.7 fl (80-94) H 10/24/22 17:55 MCH 38.1 pg (28.0-34.0) H 10/24/22 17:55 MCHC 35.1 g/dL (30.0-36.0) 10/24/22 17:55 RDW 14.2 % (12.1-15.1) 10/24/22 17:55 Plt Count 298 10^3/cmm (130-400) 10/24/22 17:55 MPV 9.4 fL (7.4-10.4) 10/24/22 17:55 Neut % (Auto) 75.8 % 10/24/22 17:55 Lymph % (Auto) 15.3 % 10/24/22 17:55 [place] % (Auto) 5.7 % 10/24/22 17:55 Eos % (Auto) 1.7 % 10/24/22 17:55 Baso % (Auto) 0.6 % 10/24/22 17:55 Neut # (Auto) 10.56 10^3/uL (1.8-7.7) H 10/24/22 17:55 Lymph # (Auto) 2.1 10^3/uL (0.8-4.8) 10/24/22 17:55 [place] # (Auto) 0.8 10^3/uL (0.2-0.9) 10/24/22 17:55 Eos # (Auto) 0.2 10^3/uL (0.0-0.8) 10/24/22 17:55 Baso # (Auto) 0.1 10^3/uL (0.0-0.1) 10/24/22 17:55 Nucleated RBC % (auto) 0 % 10/24/22 17:55 Nucleated RBCs # 0.0 /100WBC 10/24/22 17:55 PT 14.20 SECONDS (12.1-14.9) 10/24/22 17:55 INR 1.06 (0.8-1.2) 10/24/22 17:55 Sodium 135 mmol/L (136-145) L 10/24/22 17:55 Potassium 2.7 mmol/L (3.5-5.1) L* 10/24/22 17:55 Chloride 94 mmol/L (98-107) L 10/24/22 17:55 Carbon Dioxide 24 mmol/L (22-29) 10/24/22 17:55 Anion Gap 19.7 (5-19) H 10/24/22 17:55 BUN 3 mg/dL (6-20) L 10/24/22 17:55 Creatinine 0.5 mg/dL (0.7-1.2) L 10/24/22 17:55 GFR Calculation 195.2 mL/min (90-130) H 10/24/22 17:55 Glucose 115 mg/dL (65-115) 10/24/22 17:55 Calculated Osmolality 277 mOsm/kg (285-295) L 10/24/22 17:55 Calcium 9.3 mg/dL (8.5-10.5) 10/24/22 17:55 Total Bilirubin 1.9 mg/dL (0.15-1.2) H 10/24/22 17:55 AST 109 U/L (0-40) H 10/24/22 17:55 ALT 45 U/L (0-41) H 10/24/22 17:55 Alkaline Phosphatase 295 U/L (40-130) H 10/24/22 17:55 Total Protein 7.3 g/dL (6.6-8.7) 10/24/22 17:55 Albumin 4.2 g/dL (3.5-5.2) 10/24/22 17:55 Globulin 3.1 g/dL (1.3-4.6) 10/24/22 17:55 Discharge Plan Discharge Patient Disposition: Home Clinical Impression: Acute hypokalemia, Factor V Leiden, Leg swelling Condition: Stable Prescriptions: New potassium chloride 20 mEq tablet extended release 20 meq PO BID Qty: 14 0RF No Action ibuprofen 200 mg tablet 800 mg PO Q6H PRN (Reason: fever or pain) acetaminophen [Tylenol] 325 mg capsule 325 mg PO QID PRN (Reason: Pain) dicyclomine 20 mg tablet 20 mg PO QID PRN (Reason: abdominal pain) Qty: 30 0RF Eliquis DVT-PE Treat 30D Start 5 mg (74 tabs) tablets,dose pack See Rx Instructions .ROUTE .COMPLEX Qty: 74 0RF Rx Instructions: orally per package directions Discharge Orders: Discharge ED (Routine); Ordered 10/24/22 Ordered By: Cristóbal Knowles Patient Instructions: Hypokalemia (ED) Activity Restrictions/Additional Instructions: Please take all medicine as prescribed. Please try to find some anticoagulation you can afford. You may possibly benefit from some prescription assistance programs. Please follow-up in approximately 7 days to have your potassium r echecked. 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
[2022-10-24 18:10] VITALS: BP 128/82; PULSE 107; RESP 22; TEMP 37.1; O2SAT 98
[2022-10-24] MEDS: sodium chloride 0.9% 1,000 ML 999 ML IV (18:11)
[2022-10-24 18:22] LABS: Basophils # 0.1 10^3/uL (0.0-0.1); Basophils % 0.6 %; Eosinophils # 0.2 10^3/uL (0.0-0.8); Eosinophils % 1.7 %; Hematocrit 46.2 % (42.0-52.0); Hemoglobin 16.2 g/dL (11.7-16.6); Lymphocytes # 2.1 10^3/uL (0.8-4.8); Lymphocytes % 15.3 %; Mean Corpuscular HGB Conc 35.1 g/dL (30.0-36.0); Mean Corpuscular Hemoglobin 38.1 pg (28.0-34.0); Mean Corpuscular Volume 108.7 fl (80-94); Mean Platelet Volume 9.4 fL (7.4-10.4); Monocytes # 0.8 10^3/uL (0.2-0.9); Monocytes % 5.7 %; Neutrophils # 10.56 10^3/uL (1.8-7.7); Neutrophils % 75.8 %; Nucleated Red Blood Cells % 0 %; Platelet Count 298 10^3/cmm (130-400); Red Blood Count 4.25 10^6/uL (4.1-5.3); Red Cell Distribution Width 14.2 % (12.1-15.1); White Blood Count 13.9 10^3/uL (4.0-10.0)
[2022-10-24 18:35] LABS: INR 1.06 (0.8-1.2)
[2022-10-24 18:52] LABS: Alanine Aminotransferase 45 U/L (0-41); Albumin Level 4.2 g/dL (3.5-5.2); Alkaline Phosphatase 295 U/L (40-130); Anion Gap 19.7 (5-19); Aspartate Amino Transferase 109 U/L (0-40); Blood Urea Nitrogen 3 mg/dL (6-20); Calcium 9.3 mg/dL (8.5-10.5); Carbon Dioxide 24 mmol/L (22-29); Chloride 94 mmol/L (98-107); Globulin 3.1 g/dL (1.3-4.6); Glomerular Filtration Rate 195.2 mL/min (90-130); Glucose 115 mg/dL (65-115); Osmolality Calculated 277 mOsm/kg (285-295); Sodium 135 mmol/L (136-145); Total Bilirubin 1.9 mg/dL (0.15-1.2); Total Protein 7.3 g/dL (6.6-8.7)
[2022-10-24 18:57] LABS: Potassium 2.7 mmol/L (3.5-5.1)
[2022-10-24 19:00] VITALS: BP 134/88; PULSE 109; RESP 22; O2SAT 95
[2022-10-24] MEDS: potassium chloride ER 20 mEq Tablet 40 MEQ PO (19:20)
[2022-10-24 19:33] VITALS: BP 121/81; PULSE 110; RESP 16; TEMP 37.2; O2SAT 95
== END 2022-10-24 19:40 | disposition home or self-care (01) ==
PROVIDERS: Emergency Provider Emergency Medicine
DX: M79.89 Other specified soft tissue disorders (principal); E87.6 Hypokalemia; D68.51 Activated protein C resistance; F17.210 Nicotine dependence, cigarettes, uncomplicated
CPT/HCPCS: 71045; 80053; 85025; 85610; 93970; 96360; 99285; J7030

== ENCOUNTER 2022-11-16 11:24 | Emergency (ER) | payer MEDICAID, SELFPAY ==
--- NOTE | 2022-11-16 11:41 | ED_ITS ---
HPI - Nausea/Vomiting/Diarrhea General: Chief complaint: Nausea/Vomiting/Diarrhea Stated complaint: abd pain, weakness, n/v Time Seen by Provider: 11/16/22 11:30 History of Present Illness: Presents ER with complaints for the last 2 to 3 weeks of abdominal pain nausea vomiting. Patient also had worse swelling in his legs bilateral. Patient was seen here in ER recently had ultrasound of his legs showed no blood clot. Patient should be on Eliquis cannot afford it patient has factor V Leiden but is taking a daily 81 mg aspirin. Patient says every time he thinks his belly gets distended he gets nauseous and vomits and he thinks is getting dehydrated. Patient can only keep sips of water down at this moment. Review of Systems General: Reports: 10 or more systems reviewed and unremarkable except in HPI and below PFSH ED PFSH: Social History Smoking and tobacco status: current every day smoker cigarettes Second hand smoke exposure: Yes Alcohol intake: current Alcohol intake frequency: few times a week Desire information about alcohol rehabilitation?: No Substance/Drug Use: current Substance/Drug use frequency: daily Other substance/drug use details: medicinal marijuana card Desire information about substance/drug rehabilitation?: No Physical Exam Const: COMMON NORMALS: no acute distress, average body habitus, patient oriented x3, no limitations, healthy appearing, alert and well nourished HENMT: COMMON NORMALS: normocephalic, atraumatic, hearing grossly normal bilaterally, external ears normal, Normal external nose present and moist oral mucous membranes HEAD & SCALP: normocephalic and atraumatic NOSE: Normal external nose present EXTERNAL EAR: Yes external ears normal Neck/C-Spine: COMMON NORMALS: full ROM, no lymphadenopathy, supple, no meningeal signs, no JVD and Thyroid normal THYROID: Thyroid normal Chest: COMMONS NORMALS: normal inspection of the chest and normal palpation of entire chest wall Resp: COMMON NORMALS: normal respiratory effort, No retractions, No use of a ccessory muscles and clear to auscultation bilaterally AUSCULTATION: clear to auscultation bilaterally Cardio: COMMON NORMALS: no JVD, regular rate, regular rhythm, S1 normal heart sound present, S2 normal heart sound present, No gallops present (Cardio), No clicks present (Cardio) and No murmurs present (Cardio) RATE: regular rate RHYTHM: regular rhythm HEART SOUNDS: S1 normal heart sound present and S2 normal heart sound present GI: COMMON NORMALS: Normal to inspection, nondistended, normoactive bowel sounds present, Soft to palpation, non-tender, No hepatosplenomegaly present and no masses PALPATION: Yes Soft to palpation and Yes No hepatosplenomegaly present : COMMON NORMALS: Yes no CVA tenderness BLADDER/KIDNEY EXAM: Yes no CVA tenderness Back/Pelvis: COMMON NORMALS: no CVA tenderness Neuro: COMMON NORMALS: patient oriented x3 SENSORIUM/ORIENTATION: Yes alert MENINGEAL SIGNS: Yes no meningeal signs Course Vital Signs: Vital signs: Vital Signs Pulse Rate 108 H 11/16/22 13:30 Respiratory Rate 19 H 11/16/22 13:30 Blood Pressure 125/79 11/16/22 13:30 Pulse Oximetry 97 11/16/22 13:30 Oxygen Delivery Me thod Room Air 11/16/22 13:30 MDM - Nausea/Vomiting/Diarrhea Medical Decision Making Patient presents to the ER with complaints of right upper quadrant pain with jenae sea vomiting. Patient has factor V Leiden. Patient underwent a physical exam laboratory evaluation abdomen and pelvis CT as well as ultrasound of the right upper quadrant. All of these shown the patient's liver enzymes are elevating, potassium is still low and he has sludge in his gallbladder. Patient will be referred back to his primary care physician for probable HIDA scan and general surgery referral. Patient be discharged from the ER. Differential Diagnosis Unlikely traveler's diarrhea, food poisoning, gastroenteritis, clostridium difficile infection, drug-induced nausea and vomiting or dehydration Medical Records I reviewed the patient's medical records. Lab Data I reviewed the patient's lab results. 11/16/22 11:48 11/16/22 11:48 Radiology Impressions Abdomen/Pelvis CT 11/16/22 11:55 IMPRESSION: Multiple irregular areas of hypoattenuation are seen within the liver. Normal appearing blood vessels within lesions suggests that this most likely represents multifocal fatty infiltration. Laboratory Results WBC 12.9 10^3/uL (4.0-10.0) H 11/16/22 11:48 RBC 3.25 10^6/uL (4.1-5.3) L 11/16/22 11:48 Hgb 12.6 g/dL (11.7-16.6) 11/16/22 11:48 Hct 35.3 % (42.0-52.0) L 11/16/22 11:48 MCV 108.6 fl (80-94) H 11/16/22 11:48 MCH 38.8 pg (28.0-34.0) H 11/16/22 11:48 MCHC 35.7 g/dL (30.0-36.0) 11/16/22 11:48 RDW 14.7 % (12.1-15.1) 11/16/22 11:48 Plt Count 195 10^3/cmm (130-400) 11/16/22 11:48 MPV 9.7 fL (7.4-10.4) 11/16/22 11:48 Neut % (Auto) 72.0 % 11/16/22 11:48 Lymph % (Auto) 18.9 % 11/16/22 11:48 [place] % (Auto) 7.7 % 11/16/22 11:48 Eos % (Auto) 0.5 % 11/16/22 11:48 Baso % (Auto) 0.3 % 11/16/22 11:48 Neut # (Auto) 9.29 10^3/uL (1.8-7.7) H 11/16/22 11:48 Lymph # (Auto) 2.4 10^3/uL (0.8-4.8) 11/16/22 11:48 [place] # (Auto) 1.0 10^3/uL (0.2-0.9) H 11/16/22 11:48 Eos # (Auto) 0.1 10^3/uL (0.0-0.8) 11/16/22 11:48 Baso # (Auto) 0.0 10^3/uL (0.0-0.1) 11/16/22 11:48 Nucleated RBC % (auto) 0 % 11/16/22 11:48 Nucleated RBCs # 0.0 /100WBC 11/16/22 11:48 Sodium 133 mmol/L (136-145) L 11/16/22 11:48 Potassium 3.1 mmol/L (3.5-5.1) L 11/16/22 11:48 Chloride 94 mmol/L (98-107) L 11/16/22 11:48 Carbon Dioxide 22 mmol/L (22-29) 11/16/22 11:48 Anion Gap 20.1 (5-19) H 11/16/22 11:48 BUN 5 mg/dL (6-20) L 11/16/22 11:48 Creatinine 0.5 mg/dL (0.7-1.2) L 11/16/22 11:48 GFR Calculation 195.2 mL/min (90-130) H 11/16/22 11:48 Glucose 105 mg/dL (65-115) 11/16/22 11:48 Calculated Osmolality 274 mOsm/kg (285-295) L 11/16/22 11:48 Calcium 9.0 mg/dL (8.5-10.5) 11/16/22 11:48 Magnesium 1.7 mg/dL (1.7-2.3) 11/16/22 11:48 Total Bilirubin 3.2 mg/dL (0.15-1.2) H 11/16/22 11:48 AST 132 U/L (0-40) H 11/16/22 11:48 ALT 60 U/L (0-41) H 11/16/22 11:48 Alkaline Phosphatase 223 U/L (40-130) H 11/16/22 11:48 Total Protein 6.2 g/dL (6.6-8.7) L 11/16/22 11:48 Albumin 4.0 g/dL (3.5-5.2) 11/16/22 11:48 Globulin 2.2 g/dL (1.3-4.6) 11/16/22 11:48 Lipase 17 U/L (13-60) 11/16/22 11:48 Discharge Plan Discharge Patient Disposition: Home Clinical Impression: Gallbladder sludge, Elevated liver enzymes Nausea & vomiting Qualifiers: Vomiting type: unspecified Qualified Code(s): R11.2 - Nausea with vomiting, unspecified Condition: Stable Prescriptions: No Action ibuprofen 200 mg tablet 800 mg PO Q6H PRN (Reason: fever or pain) dicyclomine 20 mg tablet 20 mg PO QID PRN (Reason: abdominal pain) Qty: 30 0RF Eliquis DVT-PE Treat 30D Start 5 mg (74 tabs) tablets,dose pack See Rx Instructions .ROUTE .COMPLEX Qty: 74 0RF Rx Instructions: orally per package directions potassium chloride 20 mEq tablet extended release 20 meq PO BID Qty: 14 0RF Discharge Orders: Discharge ED (Routine); Ordered 11/16/22 Ordered By: Cristóbal Knowles Patient Instructions: Biliary Colic (ED), Low Fat Diet (ED), Acute Nausea and Vomiting (DC) Activity Restrictions/Additional Instructions: Please follow-up with your family practice physician as you may benefit from a HIDA scan and/or referral to a general surgeon. Coding Level of Care Code ED Needle Valve Operator for Wilder Jackson
--- NOTE | 2022-11-16 11:55 | CTR_ITS ---
PROCEDURE INFORMATION: Exam: CT Abdomen And Pelvis With Contrast Exam date and time: 11/16/2022 12:25 PM Age: 32 years old Clinical indication: Nausea and vomiting and other: Lt testicular discomfort; Additional info: Abd pain distension, n/v TECHNIQUE: Imaging protocol: Computed tomography of the abdomen and pelvis with contrast. Total images: 1 Radiation optimization: All CT scans at this facility use at least one of these dose optimization techniques: automated exposure control; mA and/or kV adjustment per patient size (includes targeted exams where dose is matched to clinical indication); or iterative reconstruction. Contrast material: OMNI 350; Contrast volume: 100 ml; Contrast route: INTRAVENOUS (IV); REPORTING DATA: Count of CT and Cardiac NM exams in prior 12 months: This patient has received 0 known CTs and 0 known cardiac nuclear medicine studies in the 12 months prior to the current study. COMPARISON: CT abdomen pelvis w con* [id number] 09/22/2020 2:31 PM RADIATION DOSE METRICS: Total DLP (mGy-cm): 1359.03 FINDINGS: Liver: 22 cm Liver length, previously 24 cm. Multiple irregular areas of hypoattenuation are seen within the liver. Normal appearing blood vessels within lesions suggests that this most likely represents multifocal fatty infiltration. Gallbladder and bile ducts: Normal. No calcified stones. No ductal dilation. Pancreas: Normal. No ductal dilation. Spleen: Normal. No splenomegaly. Adrenal glands: Normal. No mass. Kidneys and ureters: Normal. No hydronephrosis. Stomach and bowel: Unremarkable. No obstruction. No mucosal thickening. Appendix: No evidence of appendicitis. Intraperitoneal space: Unremarkable. No free air. No significant fluid collection. Vasculature: Incidental venous phlebolith noted. Lymph nodes: Unremarkable. No enlarged lymph nodes. Urinary bladder: Unremarkable as visualized. Reproductive: Unremarkable as visualized. Bones/joints: Unremarkable. No acute fracture. Soft tissues: Fat-containing umbilical hernia is present without inflammation. CT/CT abdomen pelvis w con* [id number] IMPRESSION: Multiple irregular areas of hypoattenuation are seen within the liver. Normal appearing blood vessels within lesions suggests that this most likely represents multifocal fatty infiltration.
--- NOTE | 2022-11-16 11:59 | PC.NURSE ---
PREFORMED DOPPLER ON BILATERAL PEDAL PULSES, BOTH WERE PALPABLE AND HEARD
[2022-11-16] MEDS: sodium chloride 0.9% 1,000 ML 999 ML IV ×2 (12:04→13:25)
[2022-11-16 12:07] LABS: Basophils % 0.3 %; Eosinophils # 0.1 10^3/uL (0.0-0.8); Eosinophils % 0.5 %; Hematocrit 35.3 % (42.0-52.0); Hemoglobin 12.6 g/dL (11.7-16.6); Lymphocytes # 2.4 10^3/uL (0.8-4.8); Lymphocytes % 18.9 %; Mean Corpuscular HGB Conc 35.7 g/dL (30.0-36.0); Mean Corpuscular Hemoglobin 38.8 pg (28.0-34.0); Mean Corpuscular Volume 108.6 fl (80-94); Mean Platelet Volume 9.7 fL (7.4-10.4); Monocytes % 7.7 %; Neutrophils # 9.29 10^3/uL (1.8-7.7); Nucleated Red Blood Cells % 0 %; Platelet Count 195 10^3/cmm (130-400); Red Blood Count 3.25 10^6/uL (4.1-5.3); Red Cell Distribution Width 14.7 % (12.1-15.1); White Blood Count 12.9 10^3/uL (4.0-10.0)
[2022-11-16 12:21] LABS: Alanine Aminotransferase 60 U/L (0-41); Alkaline Phosphatase 223 U/L (40-130); Anion Gap 20.1 (5-19); Aspartate Amino Transferase 132 U/L (0-40); Blood Urea Nitrogen 5 mg/dL (6-20); Carbon Dioxide 22 mmol/L (22-29); Chloride 94 mmol/L (98-107); Globulin 2.2 g/dL (1.3-4.6); Glomerular Filtration Rate 195.2 mL/min (90-130); Glucose 105 mg/dL (65-115); Lipase 17 U/L (13-60); Magnesium 1.7 mg/dL (1.7-2.3); Osmolality Calculated 274 mOsm/kg (285-295); Potassium 3.1 mmol/L (3.5-5.1); Sodium 133 mmol/L (136-145); Total Bilirubin 3.2 mg/dL (0.15-1.2); Total Protein 6.2 g/dL (6.6-8.7)
[2022-11-16] MEDS: iohexol 350 mg/mL 500 mL Btl (per mL) IV (12:35)
[2022-11-16] MEDS: ketorolac 30 mg/mL INJ IVP (13:25)
[2022-11-16 13:30] VITALS: BP 125/79; PULSE 108; RESP 19; O2SAT 97
--- NOTE | 2022-11-16 14:21 | US_ITS ---
WS: [id number] ULTRASOUND ABDOMEN LIMITED CLINICAL INFORMATION: ruq abd pain, elevated bilirubin and lfts COMPARISON: None. FINDINGS: Liver Size: Enlarged craniocaudal length: 21.7 cm. Echogenicity: Focal fatty infiltration surface nodularity: None. Mass (size and location): None. Bile ducts Intrahepatic ducts: Normal. Common bile duct diameter: 0.3 cm. Gallbladder Sludge gallstones: None. Gallbladder sludge: Present gallbladder wall thickening: None. Pericholecystic fluid: None. Sonographic Meneses sign: Absent. Pancreas Not well visualized Right kidney: Normal. Hydronephrosis: None. Size: 9.6 cm x 5.1 cm x 4.4 cm. Abdominal aorta and IVC Visualized portions are normal. Ascites: None. IMPRESSION: 1. Marked hepatomegaly with patchy echogenicity compatible with multifocal fatty infiltration. 2. Sludge-filled gallbladder. No gallbladder wall thickening or pericholecystic fluid. 3. Normal common bile duct
== END 2022-11-16 16:36 | disposition home or self-care (01) ==
PROVIDERS: Emergency Provider Emergency Medicine
DX: K82.8 Other specified diseases of gallbladder (principal); R74.8 Abnormal levels of other serum enzymes; D68.51 Activated protein C resistance; F17.210 Nicotine dependence, cigarettes, uncomplicated; Z79.82 Long term (current) use of aspirin
CPT/HCPCS: 74177; 76705; 80053; 83690; 83735; 85025; 96361; 96374; 96375; 99285; J1885; J7030; Q9967

== ENCOUNTER 2022-12-08 10:01 | Emergency (ER) | payer MEDICAID, SELFPAY ==
[2022-12-08 10:07] VITALS: BMI 30.3
[2022-12-08 10:10] VITALS: BP 110/73; PULSE 114; RESP 16; TEMP 37.1; O2SAT 97
--- NOTE | 2022-12-08 10:32 | XR_ITS ---
WS: [id number] Exam: XR knee RT 3V* [id number] Date/Time of Exam: 12/08/2022 10:39 AM Reason For Exam: knee pain Comparison 02/09/2006. No fracture or dislocation. The joint compartments are well-maintained. No joint effusion. Normal sof t tissues. IMPRESSION: 1. Normal RIGHT knee.
--- NOTE | 2022-12-08 10:32 | XR_ITS ---
WS: [id number] Exam: XR knee LT 3V* [id number] Date/Time of Exam: 12/08/2022 10:39 AM Reason For Exam: knee pain No fracture or dislocation. The joint compartments are well preserved. No joint effusion. Normal sof t tissues. IMPRESSION: 1. Normal LEFT knee.
[2022-12-08 10:48] LABS: Basophils # 0.1 10^3/uL (0.0-0.1); Basophils % 0.7 %; Eosinophils # 0.2 10^3/uL (0.0-0.8); Eosinophils % 1.4 %; Lymphocytes # 2.8 10^3/uL (0.8-4.8); Lymphocytes % 23.6 %; Mean Corpuscular HGB Conc 34.5 g/dL (30-55); Mean Corpuscular Hemoglobin 37.9 pg (27-33); Mean Corpuscular Volume 109.9 fl (82-101); Mean Platelet Volume 9.2 fL (7.4-10.4); Monocytes # 0.8 10^3/uL (0.2-0.9); Monocytes % 7.1 %; Neutrophils # 7.85 10^3/uL (1.8-7.7); Neutrophils % 66.5 %; Nucleated Red Blood Cells % 0 %; Platelet Count 301 10^3/cmm (157-399); Red Blood Count 3.64 10^6/uL (3.85-5.65); Red Cell Distribution Width 15.6 % (12.1-15.1); White Blood Count 11.81 10^3/uL (3.29-11.43)
[2022-12-08 11:11] LABS: Alanine Aminotransferase 105 U/L (0-41); Albumin Level 3.9 g/dL (3.5-5.2); Alkaline Phosphatase 379 U/L (40-130); Anion Gap 16.9 (5-19); Aspartate Amino Transferase 248 U/L (0-40); Blood Urea Nitrogen 3 mg/dL (6-20); Calcium 9.2 mg/dL (8.5-10.5); Carbon Dioxide 28 mmol/L (22-29); Chloride 99 mmol/L (98-107); Globulin 2.8 g/dL (1.3-4.6); Glomerular Filtration Rate 195.2 mL/min (90-130); Glucose 111 mg/dL (65-115); Osmolality Calculated 287 mOsm/kg (285-295); Potassium 3.9 mmol/L (3.5-5.1); Sodium 140 mmol/L (136-145); Total Bilirubin 1.5 mg/dL (0.15-1.2); Total Protein 6.7 g/dL (6.6-8.7)
[2022-12-08 12:53] VITALS: O2SAT 98
--- NOTE | 2022-12-08 13:06 | PC.PHAR ---
PT STATES HE TAKES TRAZODONE 50 MG 1 TAB NIGHTLY NEEDED. UNABLE TO VERIFY ON EXTERNAL MED LIST. [facility] HAS NO ORDER FOR HIM IN THEIR SYSTEM. PT STATES HE USES [facility]
--- NOTE | 2022-12-08 13:15 | W.ED.EXTPRO ---
HPI - Extremity Problem General: Chief complaint: Extremity Problem,Nontraumatic Stated complaint: leg pain Time Seen by Provider: 12/08/22 10:16 History of Present Illness: Patient is in today for bilateral lower extremity pain. He reports that this has been ongoing for months. He reports is just progressively worsening. He states that it is a burning tingling pain like his legs are asleep. He denies any injury. He does offer that he has factor V Leiden. He states that he has been in to have this evaluated a couple of times and nothing seems to be helping. He denies any fever, chills, nausea, vomiting. He reports that he has been taking his Eliquis as prescribed. Associated symptoms: Deny chest pain or fever(s) Review of Systems Const: Denies: fever(s), chills or body aches Eyes: Denies: change in vision or blurry vision ENMT: Denies: throat pain Card: Denies: chest pain, palpitations, irregular heart rhythm, lightheadedness or syncope Resp: Denies: dyspnea, productive cough or non-productive cough GI: Denies: abdominal pain, nausea or vomiting : Denies: flank pain, dysuria, urinary frequency, urinary urgency or urinary hesitancy Musc: Reports: extremity pain, extremity swelling (States swelling is better after he has completed Lasix course) and joint pain; Denies: back pain Neuro: Denies: headache(s), numbness in extremities or weakness in extremities [facility] ED PFSH: Social History Smoking and tobacco status: current every day smoker cigarettes Second hand smoke exposure: Yes Alcohol intake: current Alcohol intake frequency: few times a week Desire information about alcohol rehabilitation?: No Substance/Drug Use: current Substance/Drug use frequency: daily Other substance/drug use details: medicinal marijuana card Desire information about substance/drug rehabilitation?: No Physical Exam Const: COMMON NORMALS: patient oriented x3 and alert OTHER: Patient appears to be in pain with any slight brush or touch to his lower extremities. He is laying flat in the bed. He is alert and oriented and in no acute distress HENMT: TEETH & GINGIVA: Yes poor dentition Neck/C-Spine: COMMON NORMALS: no JVD Resp: COMMON NORMALS: normal respiratory effort, No use of accessory muscles and clear to auscultation bilaterally AUSCULTATION: clear to auscultation bilaterally Cardio: COMMON NORMALS: no JVD, regular rate, regular rhythm, S1 normal heart sound present and S2 normal heart sound present RATE: regular rate RHYTHM: regular rhythm HEART SOUNDS: S1 normal heart sound present and S2 normal heart sound present GI: COMMON NORMALS: Normal to inspection, nondistended, normoactive bowel sounds present, Soft to palpation and non-tender PALPATION: Yes Soft to palpation Extremity: OTHER: Patient has generalized tenderness to any light touch of bilateral lower extremities from just above the knee to the toes. Skin is intact. Skin is warm pink and dry. Pedal pulses are palpable and strong bilateral. Patient has full range of motion however he is slow to move or flex at the knee. Neuro: COMMON NORMALS: patient oriented x3 SENSORIUM/ORIENTATION: Yes alert Course Vital Signs: Vital signs: Vital Signs Temperature 98.7 F 12/08/22 10:10 Pulse Rate 114 H 12/08/22 10:10 Respiratory Rate 16 12/08/22 10:10 Blood Pressure 110/73 12/08/22 10:10 Pulse Oximetry 98 12/08/22 12:53 Oxygen Delivery Me thod Room Air 12/08/22 12:53 MDM - Extremity (Nontraumatic) Medical Decision Making Patient is in for bilateral lower extremity pain that is been ongoing for some time. Patient has had an exhaustive work-up including abdominal CT, lower extremity venous duplex, right upper quadrant ultrasound and labs. Testing revealed elevated liver enzymes with right upper quadrant ultrasound looking at fatty liver. No evidence of DVT was noted. DVT is less likely given that the patient is on Eliquis medication and has recently had a negative venous duplex. X-rays bilateral knees today were unremarkable. I had ordered an x-ray of the lumbar spine for further evaluation as a potential cause of radicular pain however patient declined the x-ray of the spine stating that he had had no back injuries and has no back pain. Labs today are consistent with previous lab results. White blood cell count is 11.8 however this is lower than the last 2 WBCs drawn on this patient. Alkaline phosphatase still remains elevated and slightly more so than last time. I discussed this case with Dr. Knowles who had seen the patient last ER visit. We discussed the case at length and he agrees with work-up thus far and current plan of care. Will discharge patient home to follow-up with his primary care provider. Refer patient to hematology oncology for further evaluation given his factor V Leiden disorder. Advised the patient to return to the ER for any new or worsening symptoms. Patient verbalized understanding of all instructions. He reports being agreeable to trying gabapentin to see if that will help with his pain sensation. He understands the significance of needing to follow-up with specialty care. Patient is discharged home in stable condition Lab Data 12/08/22 10:40 12/08/22 10:40 Laboratory Results WBC 11.81 10^3/uL (3.29-11.43) H 12/08/22 10:40 RBC 3.64 10^6/uL (3.85-5.65) L 12/08/22 10:40 Hgb 13.80 g/dL (11.27-16.99) 12/08/22 10:40 Hct 40.0 % (37-53) 12/08/22 10:40 MCV 109.9 fl (82-101) H 12/08/22 10:40 MCH 37.9 pg (27-33) H 12/08/22 10:40 MCHC 34.5 g/dL (30-55) 12/08/22 10:40 RDW 15.6 % (12.1-15.1) H 12/08/22 10:40 Plt Count 301 10^3/cmm (157-399) 12/08/22 10:40 MPV 9.2 fL (7.4-10.4) 12/08/22 10:40 Neut % (Auto) 66.5 % 12/08/22 10:40 Lymph % (Auto) 23.6 % 12/08/22 10:40 [place] % (Auto) 7.1 % 12/08/22 10:40 Eos % (Auto) 1.4 % 12/08/22 10:40 Baso % (Auto) 0.7 % 12/08/22 10:40 Neut # (Auto) 7.85 10^3/uL (1.8-7.7) H 12/08/22 10:40 Lymph # (Auto) 2.8 10^3/uL (0.8-4.8) 12/08/22 10:40 [place] # (Auto) 0.8 10^3/uL (0.2-0.9) 12/08/22 10:40 Eos # (Auto) 0.2 10^3/uL (0.0-0.8) 12/08/22 10:40 Baso # (Auto) 0.1 10^3/uL (0.0-0.1) 12/08/22 10:40 Nucleated RBC % (auto) 0 % 12/08/22 10:40 Nucleated RBCs # 0.0 /100WBC 12/08/22 10:40 Sodium 140 mmol/L (136-145) 12/08/22 10:40 Potassium 3.9 mmol/L (3.5-5.1) 12/08/22 10:40 Chloride 99 mmol/L (98-107) 12/08/22 10:40 Carbon Dioxide 28 mmol/L (22-29) 12/08/22 10:40 Anion Gap 16.9 (5-19) 12/08/22 10:40 BUN 3 mg/dL (6-20) L 12/08/22 10:40 Creatinine 0.5 mg/dL (0.7-1.2) L 12/08/22 10:40 GFR Calculation 195.2 mL/min (90-130) H 12/08/22 10:40 Glucose 111 mg/dL (65-115) 12/08/22 10:40 Calculated Osmolality 287 mOsm/kg (285-295) 12/08/22 10:40 Calcium 9.2 mg/dL (8.5-10.5) 12/08/22 10:40 Total Bilirubin 1.5 mg/dL (0.15-1.2) H 12/08/22 10:40 AST 248 U/L (0-40) H 12/08/22 10:40 ALT 105 U/L (0-41) H 12/08/22 10:40 Alkaline Phosphatase 379 U/L (40-130) H 12/08/22 10:40 Total Protein 6.7 g/dL (6.6-8.7) 12/08/22 10:40 Albumin 3.9 g/dL (3.5-5.2) 12/08/22 10:40 Globulin 2.8 g/dL (1.3-4.6) 12/08/22 10:40 Discharge Plan Discharge Patient Disposition: Home Clinical Impression: Factor V Leiden, Bilateral leg pain Condition: Stable Prescriptions: New gabapentin 100 mg capsule 100 mg PO TID PRN (Reason: leg pain) Qty: 30 0RF No Action ibuprofen 200 mg tablet 800 mg PO Q6H PRN (Reason: fever or pain) dicyclomine 20 mg tablet 20 mg PO QID PRN (Reason: abdominal pain) Qty: 30 0RF Eliquis DVT-PE Treat 30D Start 5 mg (74 tabs) tablets,dose pack See Rx Instructions .ROUTE .COMPLEX Qty: 74 0RF Rx Instructions: orally per package directions trazodone 50 mg Tablet 50 mg PO BEDTIME PRN (Reason: Sleep) Discharge Orders: Discharge ED (Routine); Ordered 12/08/22 Ordered By: Kala Porter Referrals: James Chapa MD [Primary Care Provider] - Discharge Diet: Usual diet Discharge Activity: Increase activity as tolerated Activity Restrictions/Additional Instructions: Continue taking anticoagulant medication as previously prescribed. It is imperative that you follow-up with your primary care provider and also hematology sales and training specialist for continuing evaluation of your lower extremity pain. Take the gabapentin as needed as directed. It can make you sleepy so do not drive or operate machinery until you know how this affects you. Do not take any other medications that make you sleepy with the gabapentin. Return to the ER as needed for new or worsening symptoms. Stand Alone Forms: Work/School Release Coding Level of Care Code ED Fur Blower Operator for Wilder Jackson
--- NOTE | 2022-12-09 09:14 | DCPLANNER ---
Addendum entered by Ale Hauser 12/13/22 13:35: Patient has a follow up appointment scheduled for Monday, January 16, 2023 at 2:[address] Chaney at oncology. Original Note: table games manager had message to schedule a follow up appointment for patient with hematology/oncology. table games manager sent patients information to the front office staff at [facility]. Patients information will be printed and reviewed. Clinic will call patient with appointment information.
--- NOTE | 2022-12-09 09:20 | DCPLANNER ---
commercial center manager had message to speak with patient about getting established with a primary care physician - patient stated that he sees Dr. Chapa at [facility], and that he will call and make a follow up appointment.
== END 2022-12-08 13:31 | disposition home or self-care (01) ==
PROVIDERS: Emergency Provider Nurse Practitioner Family; PCP Family Medicine
DX: M79.605 Pain in left leg (principal); M79.604 Pain in right leg; D68.51 Activated protein C resistance; Z79.01 Long term (current) use of anticoagulants; F17.210 Nicotine dependence, cigarettes, uncomplicated
CPT/HCPCS: 36415; 73562; 80053; 85025; 99284

== ENCOUNTER 2023-01-14 14:27 | Emergency (ER) | payer MEDICAID, SELFPAY ==
[2023-01-14 14:31] VITALS: BP 138/102; PULSE 114; RESP 22; TEMP 36.6; O2SAT 99; BMI 26.4
--- NOTE | 2023-01-14 14:36 | W.ED.NAVMDI ---
HPI - Nausea/Vomiting/Diarrhea General: Chief complaint: Nausea/Vomiting/Diarrhea Stated complaint: puking Time Seen by Provider: 01/14/23 14:28 Source: patient Mode of arrival: ambulatory History of Present Illness: 32-year-old male presents emergency room with complaints of abdominal pain. He is also having nausea and vomiting. He been seen before with similar complaints. He was referred to surgery and is supposed have a HIDA scan but because of insurance issues has not yet had that done. He does drink alcohol regularly and has been trying to use alcohol for pain control he did drink a couple of mixed drinks last evening. He has had episodes of vomiting and intermittent diarrhea. Report of some dark stools and dark vomitus. He will occasionally have some scant blood streaked vomitus usually related to episodes of multiple vomiting. He has not had any upper GI bleeds. 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 MD elicited complaint: nausea, vomiting and abdominal pain Pertinent past history: other (Biliary colic) Onset (ago): hour(s) Description of vomiting: watery and bilious Description of diarrhea: other (Dark) Associated nausea: Yes Associated abdominal pain: Yes Location of pain: RUQ Radiation: other (Back) Pain consistency: constant Severity: severe Quality: cramping Exacerbating factors: eating Relieving factors: none Associated symtoms: Reports bloating, anorexia, malaise and nausea; Denies decreased urine output, dysuria, fevers/chills or headache(s) Review of Systems Const: Reports: malaise; Denies: fever(s) or chills Resp: Denies: dyspnea GI: Reports: abdominal pain, nausea, vomiting, diarrhea and bloating : Denies: dysuria, urinary frequency or urinary urgency Musc: Denies: neck pain or back pain Skin/Breast: Denies: pruritus Neuro: Denies: headache(s) PFSH ED PFSH: Social History Smoking and tobacco status: current every day smoker cigarettes Second hand smoke exposure: Yes Alcohol intake: current Alcohol intake frequency: few times a week Desire information about alcohol rehabilitation?: No Substance/Drug Use: current Substance/Drug use frequency: daily Other substance/drug use details: medicinal marijuana card Desire information about substance/drug rehabilitation?: No Physical Exam Const: GENERAL APPEARANCE: cooperative ORIENTATION/CONSCIOUSNESS: Yes awake, Yes oriented to person, Yes oriented to place and Yes oriented to time HENMT: COMMON NORMALS: normocephalic, atraumatic and hearing grossly normal bilaterally HEAD & SCALP: normocephalic and atraumatic Resp: COMMON NORMALS: normal respiratory effort, No retractions, No use of accessory muscles and clear to auscultation bilaterally AUSCULTATION: clear to auscultation bilaterally Cardio: COMMON NORMALS: regular rate, regular rhythm and No murmurs present (Cardio) RATE: regular rate RHYTHM: regular rhythm GI: COMMON NORMALS: No hepatosplenomegaly present AUSCULTATION: Yes normoactive bowel sounds PALPATION: Yes Tenderness to palpation present (GI) Details: LUQ and RUQ, No Guarding due to palpation present (GI) and Yes No hepatosplenomegaly present Extremity: COMMON NORMALS: normal to inspection, capillary refill normal, no clubbing, cyanosis or edema, no calf tenderness and no pedal edema Neuro: SENSORIUM/ORIENTATION: Yes oriented to person, Yes oriented to place and Yes oriented to time Skin: COMMON NORMALS: no rashes or lesions noted GENERAL SKIN EXAM: no rashes or lesions noted Course Vital Signs: Vital signs: Vital Signs Temperature 97.8 F 01/14/23 14:31 Pulse Rate 91 01/14/23 17:35 Respiratory Rate 24 H 01/14/23 15:42 Blood Pressure 131/88 01/14/23 17:35 Pulse Oximetry 98 01/14/23 17:35 Oxygen Delivery Me thod Room Air 01/14/23 15:03 MDM - Nausea/Vomiting/Diarrhea Medical Decision Making Reviewed findings with the patient and his mother. There is no dilation of the common bile duct he has elevation of his total bilirubin his transaminase with think it is due to his alcohol use. He is acutely intoxicated. He states he drinks to help with his back pain and radicular pain he has not been seen by the pain clinic. The drinking aggravates biliary colic. He previously was on tramadol from his primary care provider but they declined to continue to fill it. Discussed some we can prescribe narcotics for his chronic back and leg pain. We did give him promethazine help with nausea and tizanidine to help with his back pain. Recommend he follow-up with his primary care doctor to for referral to pain clinic. We will make arrangements for consultation with general surgery for his gallbladder issues. Encouraged alcohol abstinence. Medical Records I reviewed the patient's medical records. Lab Data I reviewed the patient's lab results. 01/14/23 14:41 01/14/23 14:41 Radiology Impressions Gallbladder Ultrasound 01/14/23 15:14 IMPRESSION: 1. Hepatomegaly with fatty infiltration of the liver. 2. Distended gallbladder with sludge. Sonographic Meneses's sign is negative arguing against acute cholecystitis by ultrasound. Consider HIDA scan for follow-up. Laboratory Results WBC 10. 10^3/uL (3.29-11.43) 01/14/23 14:41 RBC 4.18 10^6/uL (3.85-5.65) 01/14/23 14:41 Hgb 16.40 g/dL (11.27-16.99) 01/14/23 14:41 Hct 46.3 % (37-53) 01/14/23 14:41 MCV 110.8 fl (82-101) H 01/14/23 14:41 MCH 39.2 pg (27-33) H 01/14/23 14:41 MCHC 35.4 g/dL (30-55) 01/14/23 14:41 RDW 15.1 % (12.1-15.1) 01/14/23 14:41 Plt Count 226 10^3/cmm (157-399) 01/14/23 14:41 MPV 8.9 fL (7.4-10.4) 01/14/23 14:41 Neut % (Auto) 73.7 % 01/14/23 14:41 Lymph % (Auto) 17.3 % 01/14/23 14:41 [place] % (Auto) 7.3 % 01/14/23 14:41 Eos % (Auto) 0.6 % 01/14/23 14:41 Baso % (Auto) 0.7 % 01/14/23 14:41 Neut # (Auto) 7.42 10^3/uL (1.8-7.7) 01/14/23 14:41 Lymph # (Auto) 1.7 10^3/uL (0.8-4.8) 01/14/23 14:41 [place] # (Auto) 0.7 10^3/uL (0.2-0.9) 01/14/23 14:41 Eos # (Auto) 0.1 10^3/uL (0.0-0.8) 01/14/23 14:41 Baso # (Auto) 0.1 10^3/uL (0.0-0.1) 01/14/23 14:41 Nucleated RBC % (auto) 0 % 01/14/23 14:41 Nucleated RBCs # 0.0 /100WBC 01/14/23 14:41 Sodium 138 mmol/L (136-145) 01/14/23 14:41 Potassium 3.2 mmol/L (3.5-5.1) L 01/14/23 14:41 Chloride 99 mmol/L (98-107) 01/14/23 14:41 Carbon Dioxide 24 mmol/L (22-29) 01/14/23 14:41 Anion Gap 18.2 (5-19) 01/14/23 14:41 BUN 3 mg/dL (6-20) L 01/14/23 14:41 Creatinine 0.5 mg/dL (0.7-1.2) L 01/14/23 14:41 GFR Calculation 195.2 mL/min (90-130) H 01/14/23 14:41 Glucose 147 mg/dL (65-115) H 01/14/23 14:41 Calculated Osmolality 285 mOsm/kg (285-295) 01/14/23 14:41 Calcium 8.8 mg/dL (8.5-10.5) 01/14/23 14:41 Total Bilirubin 2.0 mg/dL (0.15-1.2) H 01/14/23 14:41 AST 163 U/L (0-40) H 01/14/23 14:41 ALT 70 U/L (0-41) H 01/14/23 14:41 Alkaline Phosphatase 440 U/L (40-130) H 01/14/23 14:41 Total Protein 6.5 g/dL (6.6-8.7) L 01/14/23 14:41 Albumin 3.8 g/dL (3.5-5.2) 01/14/23 14:41 Globulin 2.7 g/dL (1.3-4.6) 10/07/23 14:41 Lipase 21 U/L (13-60) 01/14/23 14:41 Urine Color Yellow (Yellow) 01/14/23 16:30 Urine Appearance Clear (CLEAR) 01/14/23 16:30 Urine pH 6.5 (5-7) 01/14/23 16:30 Ur Specific [place] 1.005 (1.005-1.030) 01/14/23 16:30 Urine Protein Neg (Negative) 01/14/23 16:30 Urine Glucose (UA) Norm (Normal) 01/14/23 16:30 Urine Ketones Negative (Negative) 01/14/23 16:30 Urine Blood Neg (Negative) 01/14/23 16:30 Urine Nitrate Negative (Negative) 01/14/23 16:30 Urine Bilirubin Neg (Negative) 01/14/23 16:30 Urine Urobilinogen 1 mg/dL (Negative) H 01/14/23 16:30 Ur Leukocyte Esterase Negative (Negative) 01/14/23 16:30 Ethyl Alcohol 173 mg/dL (0-10) H 01/14/23 14:41 All radiology interpretation(s) finalized by discharge Discharge Plan Discharge Patient Disposition: Home Clinical Impression: Biliary colic, Alcohol intoxication, Alcohol abuse, Chronic bilateral low back pain with bilateral sciatica Condition: Stable Prescriptions: New tizanidine 4 mg tablet 4 mg PO Q6H PRN (Reason: muscle spasticity) Qty: 20 0RF Rx Instructions: do not exceed 3 doses per 24 hrs promethazine 25 mg tablet 25 mg PO Q6H PRN (Reason: nausea and vomiting) Qty: 20 0RF No Action ibuprofen 200 mg tablet 800 mg PO Q6H PRN (Reason: fever or pain) dicyclomine 20 mg tablet 20 mg PO QID PRN (Reason: abdominal pain) Qty: 30 0RF Eliquis DVT-PE Treat 30D Start 5 mg (74 tabs) tablets,dose pack See Rx Instructions .ROUTE .COMPLEX Qty: 74 0RF Rx Instructions: orally per package directions trazodone 50 mg Tablet 50 mg PO BEDTIME PRN (Reason: Sleep) gabapentin 100 mg capsule 100 mg PO TID PRN (Reason: leg pain) Qty: 30 0RF Discharge Orders: Discharge ED (Routine); Ordered 01/14/23 Ordered By: Aramis Salazar Referrals: James Chapa MD [Primary Care Provider] - Discharge Diet: As Directed Discharge Activity: Increase activity as tolerated Patient Instructions: Biliary Colic (ED), Abuse of Alcohol (ED), Opioid Safety, Pain Management Activity Restrictions/Additional Instructions: Follow-up with your primary care doctor for referral to pain management clinic. Case management make arrangements for you to follow-up with general surgery. Coding Level of Care Code ED [employer] Artist for Wilder Jackson
[2023-01-14 14:50] LABS: Basophils # 0.1 10^3/uL (0.0-0.1); Basophils % 0.7 %; Eosinophils # 0.1 10^3/uL (0.0-0.8); Eosinophils % 0.6 %; Hematocrit 46.3 % (37-53); Lymphocytes # 1.7 10^3/uL (0.8-4.8); Lymphocytes % 17.3 %; Mean Corpuscular HGB Conc 35.4 g/dL (30-55); Mean Corpuscular Hemoglobin 39.2 pg (27-33); Mean Corpuscular Volume 110.8 fl (82-101); Mean Platelet Volume 8.9 fL (7.4-10.4); Monocytes # 0.7 10^3/uL (0.2-0.9); Monocytes % 7.3 %; Neutrophils # 7.42 10^3/uL (1.8-7.7); Neutrophils % 73.7 %; Nucleated Red Blood Cells % 0 %; Platelet Count 226 10^3/cmm (157-399); Red Blood Count 4.18 10^6/uL (3.85-5.65); Red Cell Distribution Width 15.1 % (12.1-15.1); White Blood Count 10.07 10^3/uL (3.29-11.43)
[2023-01-14] MEDS: sodium chloride 0.9% 1,000 ML 999 ML IV ×2 (14:59→17:09)
[2023-01-14] MEDS: ondansetron 2 mg/ML SDV 2 mL 4 MG IVP (14:59)
[2023-01-14 15:03] VITALS: BP 109/80; PULSE 92; RESP 18; O2SAT 99
[2023-01-14 15:06] VITALS: RESP 20; O2SAT 98
[2023-01-14] MEDS: morphine 4 mg/mL SDV 1 mL IVP ×2 (15:06→15:42)
[2023-01-14 15:09] LABS: Alanine Aminotransferase 70 U/L (0-41); Albumin Level 3.8 g/dL (3.5-5.2); Alkaline Phosphatase 440 U/L (40-130); Anion Gap 18.2 (5-19); Aspartate Amino Transferase 163 U/L (0-40); Blood Urea Nitrogen 3 mg/dL (6-20); Calcium 8.8 mg/dL (8.5-10.5); Carbon Dioxide 24 mmol/L (22-29); Chloride 99 mmol/L (98-107); Globulin 2.7 g/dL (1.3-4.6); Glomerular Filtration Rate 195.2 mL/min (90-130); Glucose 147 mg/dL (65-115); Osmolality Calculated 285 mOsm/kg (285-295); Potassium 3.2 mmol/L (3.5-5.1); Sodium 138 mmol/L (136-145); Total Protein 6.5 g/dL (6.6-8.7)
--- NOTE | 2023-01-14 15:14 | USR_ITS ---
PROCEDURE INFORMATION: Exam: US Abdomen, Limited; Right Upper Quadrant Exam date and time: 01/14/2023 3:32 PM Age: 32 years old Clinical indication: Abdominal pain; Generalized; Additional info: Biliary colic TECHNIQUE: Imaging protocol: Real time ultrasound of the abdomen with image documentation. Limited exam focused on the right upper quadrant. COMPARISON: US abdomen limited [id number] 11/16/2022 3:07 PM FINDINGS: Liver: Liver is enlarged measuring 19.5 cm with diffusely increased echogenicity. Gallbladder: The gallbladder is distended to 12 cm with sludge present. The sonographic Meneses's sign is negative. Biliary ducts: Common bile duct measures 6 mm. No stones. No dilation. Pancreas: The pancreas is obscured by bowel gas. Right kidney: Normal. No mass. No hydronephrosis. US/US gall bladder [id number] IMPRESSION: 1. Hepatomegaly with fatty infiltration of the liver. 2. Distended gallbladder with sludge. Sonographic Meneses's sign is negative arguing against acute cholecystitis by ultrasound. Consider HIDA scan for follow-up.
[2023-01-14 15:42] VITALS: RESP 24; O2SAT 98
[2023-01-14 15:43] LABS: Alcohol Level 173 mg/dL (0-10); Lipase 21 U/L (13-60)
[2023-01-14 16:00] VITALS: BP 129/97; PULSE 97; O2SAT 98
[2023-01-14 16:38] LABS: Add Urine Microscopic? NO; Charge for UA Resulting for Rev
[2023-01-14 16:52] LABS: Bilirubin Urine Neg (Negative); Blood Urine Neg (Negative); Glucose Urine UA Norm (Normal); Ketones Urine Negative (Negative); Leukocyte Esterase Urine Negative (Negative); Nitrate Urine Negative (Negative); Protein Urine Neg (Negative); Specific Gravity, Urine 1.005 (1.005-1.030); Urine Appearance Clear (CLEAR); Urine Color Yellow (Yellow); Urobilinogen Urine 1 mg/dL (Negative); pH Urine 6.5 (5-7)
[2023-01-14] MEDS: lidocaine 2% viscous 15 ML, aluminum-mag hydrox-simethicon 30 ML, sucralfate oral liq 1 GM PO (17:04)
[2023-01-14 17:35] VITALS: BP 131/88; PULSE 91; O2SAT 98
--- NOTE | 2023-01-16 10:26 | PC.SOCIAL ---
Consult received for general surgery referral 01/14 at 3715; patient returned to ER and admitted on 01/15. Referral not faxed for this reason.
== END 2023-01-14 17:37 | disposition home or self-care (01) ==
PROVIDERS: Emergency Provider Family Medicine; PCP Family Medicine
DX: K80.50 Calculus of bile duct without cholangitis or cholecystitis without obstruction (principal); M54.42 Lumbago with sciatica, left side; M54.41 Lumbago with sciatica, right side; G89.29 Other chronic pain; F10.129 Alcohol abuse with intoxication, unspecified; Y90.6 Blood alcohol level of 120-199 mg/100 ml; Z79.01 Long term (current) use of anticoagulants; F17.210 Nicotine dependence, cigarettes, uncomplicated
CPT/HCPCS: 36415; 76705; 80053; 80307; 81003; 83690; 85025; 96361; 96374; 96375; 96376; 99284; J2270; J2405; J7030

== ENCOUNTER 2023-01-14 19:47 | Inpatient (IN) | payer MEDICAID, SELFPAY ==
[2023-01-14 20:17] VITALS: BP 140/91; PULSE 114; RESP 16; TEMP 36.7; O2SAT 96; BMI 26.4
[2023-01-14 20:21] LABS: Basophils # 0.1 10^3/uL (0.0-0.1); Basophils % 0.6 %; Eosinophils % 0.1 %; Hematocrit 46.6 % (37-53); Lymphocytes # 1.4 10^3/uL (0.8-4.8); Lymphocytes % 10.1 %; Mean Corpuscular HGB Conc 34.8 g/dL (30-55); Mean Corpuscular Hemoglobin 39.4 pg (27-33); Mean Corpuscular Volume 113.4 fl (82-101); Mean Platelet Volume 8.9 fL (7.4-10.4); Monocytes # 1.1 10^3/uL (0.2-0.9); Neutrophils # 11.27 10^3/uL (1.8-7.7); Neutrophils % 80.6 %; Nucleated Red Blood Cells % 0 %; Platelet Count 239 10^3/cmm (157-399); Red Blood Count 4.11 10^6/uL (3.85-5.65); Red Cell Distribution Width 15.1 % (12.1-15.1); White Blood Count 13.97 10^3/uL (3.29-11.43)
[2023-01-14 20:37] LABS: Alanine Aminotransferase 66 U/L (0-41); Albumin Level 3.7 g/dL (3.5-5.2); Alcohol Level 39 mg/dL (0-10); Alkaline Phosphatase 434 U/L (40-130); Aspartate Amino Transferase 145 U/L (0-40); Blood Urea Nitrogen 3 mg/dL (6-20); Calcium 8.5 mg/dL (8.5-10.5); Carbon Dioxide 20 mmol/L (22-29); Chloride 101 mmol/L (98-107); Globulin 2.7 g/dL (1.3-4.6); Glomerular Filtration Rate 195.2 mL/min (90-130); Glucose 171 mg/dL (65-115); Lipase 15 U/L (13-60); Osmolality Calculated 289 mOsm/kg (285-295); Sodium 139 mmol/L (136-145); Total Bilirubin 2.1 mg/dL (0.15-1.2); Total Protein 6.4 g/dL (6.6-8.7)
--- NOTE | 2023-01-14 21:49 | CTR_ITS ---
PROCEDURE INFORMATION: Exam: CT Abdomen And Pelvis With Contrast Exam date and time: 01/14/2023 10:05 PM Age: 32 years old Clinical indication: Abdominal pain; Prior surgery; Surgery date: 6+ months; Surgery type: Appy; Patient HX: C/O epigastric pain; Additional info: Epigastric abd pain TECHNIQUE: Imaging protocol: Computed tomography of the abdomen and pelvis with contrast. Radiation optimization: All CT scans at this facility use at least one of these dose optimization techniques: automated exposure control; mA and/or kV adjustment per patient size (includes targeted exams where dose is matched to clinical indication); or iterative reconstruction. Contrast material: OMNI 350; Contrast volume: 100 ml; Contrast route: INTRAVENOUS (IV); REPORTING DATA: Count of CT and Cardiac NM exams in prior 12 months: This patient has received [address] and 0 known cardiac nuclear medicine studies in the 12 months prior to the current study. COMPARISON: CT abdomen pelvis w con* [id number] 11/16/2022 12:25 PM RADIATION DOSE METRICS: Total DLP (mGy-cm): 888.01 FINDINGS: Liver: The liver is enlarged measuring 21 cm craniocaudal. There are geographic regions of hypodensity which are likely fatty infiltration similar to the previous study with interspersed regions of fatty sparing. There is hypertrophy of the caudate lobe which is unchanged. Gallbladder and bile ducts: The gallbladder is distended similar to the comparison ultrasound. No pericholecystic inflammation is seen by CT. Pancreas: Normal. No ductal dilation. Spleen: Normal. No splenomegaly. Adrenal glands: Normal. No mass. Kidneys and ureters: Normal. No hydronephrosis. Stomach and bowel: The stomach is thickened or decompressed. There is diffuse wall thickening of the colon. No evidence of bowel obstruction. The small bowel has scattered air-fluid levels present. Appendix: No evidence of appendicitis. Intraperitoneal space: Unremarkable. No free air. No significant fluid collection. Vasculature: Normal for age. No abdominal aortic aneurysm. Lymph nodes: Unremarkable. No enlarged lymph nodes. Urinary bladder: Unremarkable as visualized. Reproductive: Unremarkable as visualized. Bones/joints: Unremarkable. No acute fracture. Soft tissues: Small-sized fat containing umbilical hernia is unchanged. CT/CT abdomen pelvis w con* [id number] IMPRESSION: 1. Distended gallbladder again visualized. No significant pericholecystic inflammation seen by CT. Correlate clinically. 2. Findings suggestive of diffuse colitis and small bowel enteritis which is likely infectious/inflammatory. No obstruction. Gastritis changes also present. 3. Hepatomegaly with geographic regions of hypodensity similar to previous likely fatty infiltration. This can be further characterized with a nonemergent liver protocol MRI for follow-up which is recommended.
[2023-01-14] MEDS: iohexol 350 mg/mL 500 mL Btl (per mL) IV (22:07)
[2023-01-14 22:10] LABS: Add Urine Microscopic? YES; Bacteria Urine TRACE /hpf; Bilirubin Urine 1+ (Negative); Blood Urine Neg (Negative); Glucose Urine UA Norm (Normal); Ketones Urine 1+ (Negative); Leukocyte Esterase Urine Trace (Negative); Nitrate Urine Positive (Negative); Protein Urine 1+ (Negative); RBC Urine RARE /hpf (0-2); Squamous Epithelial Cell Urine 0-4 /hpf (0-5); Urine Appearance Clear (CLEAR); Urine Color Amber (Yellow); Urobilinogen Urine 4 mg/dL (Negative); WBC Urine 0-4 /hpf (0-5); pH Urine 5 (5-7)
[2023-01-14 22:11] LABS: Add Urine Culture? No; Mucus Urine 3+ /hpf
--- NOTE | 2023-01-14 22:15 | W.ED.ABDPA2 ---
HPI - Abdominal Pain General: Chief Complaint: Abdominal Pain Stated Complaint: n/v Time Seen by Provider: 01/14/23 21:22 Source: patient History of Present Illness: 32-year-old male seen earlier today with epigastric abdominal pain. He received IV fluid, antiemetic, pain medication, etc. He went home, and began to vomit again. He and his girlfriend noticed some blood in the vomitus which worried them, so he returned. He continues to complain of nausea and epigastric pain. He tells me that he has factor V Leyden deficiency, and is recently been placed on Eliquis. He also says that he drinks alcohol decently frequently, which could be contributing to his vomiting with bleeding. Ultrasound of his gallbladder was completed today showing sludge in the gallbladder without evidence of cholecystitis or biliary obstruction. MD elicited complaint: abdominal pain Associated Symptoms: Reports chills, hematemesis, nausea and vomiting; Denies fever(s) Review of Systems Const: Reports: chills; Denies: fever(s) ENMT: Reports: throat pain Card: Denies: chest pain or palpitations Resp: Denies: dyspnea, productive cough or non-productive cough GI: Reports: abdominal pain, nausea, vomiting and hematemesis Musc: Reports: back pain (Chronic) [facility] ED PFSH: Medical History (Updated 01/15/23 @ 01:12 by Lennox Griffin DO) History of DVT (deep vein thrombosis) History of factor V Leiden mutation Surgical History History of appendectomy History of bilateral mastectomy Family History Mother CAD (coronary artery disease) Other Adopted Social History Smoking and tobacco status: current every day smoker cigarettes Second hand smoke exposure: Yes Alcohol intake: current Alcohol intake frequency: few times a week Desire information about alcohol rehabilitation?: No Substance/Drug Use: current Substance/Drug use frequency: daily Other substance/drug use details: medicinal marijuana card Desire information about substance/drug rehabilitation?: No Physical Exam Const: COMMON NORMALS: no acute distress GENERAL APPEARANCE: cooperative and ill appearing; not frail appearing HENMT: COMMON NORMALS: normocephalic, atraumatic and Normal external nose present HEAD & SCALP: normocephalic and atraumatic FACE & SINUS: normal facial exam and face symmetric NOSE: Normal external nose present Eye: COMMON NORMALS: Equal, round and reactive pupils present and EOMs intact bilaterally PUPIL: Yes Equal, round and reactive pupils present Neck/C-Spine: GENERAL: Yes trachea midline Chest: CHEST: Yes Symmetrical chest wall rise Resp: COMMON NORMALS: normal respiratory effort, No retractions, No use of accessory muscles and clear to auscultation bilaterally AUSCULTATION: clear to auscultation bilaterally Cardio: COMMON NORMALS: regular rate and regular rhythm RATE: regular rate RHYTHM: regular rhythm GI: INSPECTION: Yes normal to inspection PALPATION: Yes Tenderness to palpation present (GI) (epigastric) Extremity: COMMON NORMALS: no pedal edema Neuro: RYAN COMA SCALE: document GCS findings [place] coma scale eye opening: Spontaneous [place] coma scale verbal response: Orientated [place] coma scale motor response: Obey commands [place] coma scale total score: 15 SENSORY EXAM: Yes extremities (intact) Psych: COMMON NORMALS: speech normal SPEECH: Yes normal speech Skin: COMMON NORMALS: no rashes or lesions noted GENERAL SKIN EXAM: no rashes or lesions noted Course Vital Signs: Vital signs: Vital Signs Temperature 98.1 F 01/14/23 20:17 Pulse Rate 107 H 01/14/23 23:39 Respiratory Rate 18 01/14/23 23:39 Blood Pressure 145/97 01/14/23 23:39 Pulse Oximetry 93 01/14/23 23:39 Oxygen Delivery Me thod Room Air 01/14/23 23:39 MDM - Abdominal Pain Medical Decision Making Patient mildly tachycardic. Normal blood pressure. Hemoglobin is 16. White blood cell count is 14. Gallbladder ultrasound was done earlier today, and showed a distended gallbladder with sludge present. No biliary duct dilatation or signs of cholecystitis. Abdominal CT is performed now, showing similar gallbladder findings. He also has findings suggestive of diffuse colitis, small bowel enteritis, and gastritis. This is more likely the cause of his illness. His potassium is 3.0, and is being replaced via IV fluids. Lab Data 01/14/23 20:11 01/14/23 20:11 Labs/Radiology: Radiology Impressions Abdomen/Pelvis CT 01/14/23 21:49 IMPRESSION: 1. Distended gallbladder again visualized. No significant pericholecystic inflammation seen by CT. Correlate clinically. 2. Findings suggestive of diffuse colitis and small bowel enteritis which is likely infectious/inflammatory. No obstruction. Gastritis changes also present. 3. Hepatomegaly with geographic regions of hypodensity similar to previous likely fatty infiltration. This can be further characterized with a nonemergent liver protocol MRI for follow-up which is recommended. Chest X-Ray 01/15/23 00:00 IMPRESSION: No acute findings. Laboratory Results WBC 13.97 10^3/uL (3.29-11.43) H 01/14/23 20:11 RBC 4.11 10^6/uL (3.85-5.65) 01/14/23 20:11 Hgb 16.20 g/dL (11.27-16.99) 01/14/23 20:11 Hct 46.6 % (37-53) 01/14/23 20:11 MCV 113.4 fl (82-101) H 01/14/23 20:11 MCH 39.4 pg (27-33) H 01/14/23 20:11 MCHC 34.8 g/dL (30-55) 01/14/23 20:11 RDW 15.1 % (12.1-15.1) 01/14/23 20:11 Plt Count 239 10^3/cmm (157-399) 01/14/23 20:11 MPV 8.9 fL (7.4-10.4) 01/14/23 20:11 Neut % (Auto) 80.6 % 01/14/23 20:11 Lymph % (Auto) 10.1 % 01/14/23 20:11 [place] % (Auto) 8.0 % 01/14/23 20:11 Eos % (Auto) 0.1 % 01/14/23 20:11 Baso % (Auto) 0.6 % 01/14/23 20:11 Neut # (Auto) 11.27 10^3/uL (1.8-7.7) H 01/14/23 20:11 Lymph # (Auto) 1.4 10^3/uL (0.8-4.8) 01/14/23 20:11 [place] # (Auto) 1.1 10^3/uL (0.2-0.9) H 01/14/23 20:11 Eos # (Auto) 0.0 10^3/uL (0.0-0.8) 01/14/23 20:11 Baso # (Auto) 0.1 10^3/uL (0.0-0.1) 01/14/23 20:11 Nucleated RBC % (auto) 0 % 01/14/23 20:11 Nucleated RBCs # 0.0 /100WBC 01/14/23 20:11 Sodium 139 mmol/L (136-145) 01/14/23 20:11 Potassium 3.0 mmol/L (3.5-5.1) L 01/14/23 20:11 Chloride 101 mmol/L (98-107) 01/14/23 20:11 Carbon Dioxide 20 mmol/L (22-29) L 01/14/23 20:11 Anion Gap 21.0 (5-19) H 01/14/23 20:11 BUN 3 mg/dL (6-20) L 01/14/23 20:11 Creatinine 0.5 mg/dL (0.7-1.2) L 01/14/23 20:11 GFR Calculation 195.2 mL/min (90-130) H 01/14/23 20:11 Glucose 171 mg/dL (65-115) H 01/14/23 20:11 Calculated Osmolality 289 mOsm/kg (285-295) 01/14/23 20:11 Calcium 8.5 mg/dL (8.5-10.5) 01/14/23 20:11 Total Bilirubin 2.1 mg/dL (0.15-1.2) H 01/14/23 20:11 AST 145 U/L (0-40) H 01/14/23 20:11 ALT 66 U/L (0-41) H 01/14/23 20:11 Alkaline Phosphatase 434 U/L (40-130) H 01/14/23 20:11 Total Protein 6.4 g/dL (6.6-8.7) L 01/14/23 20:11 Albumin 3.7 g/dL (3.5-5.2) 01/14/23 20:11 Globulin 2.7 g/dL (1.3-4.6) 01/14/23 20:11 Lipase 15 U/L (13-60) 01/14/23 20:11 Urine Color [place] (Yellow) 01/14/23 21:49 Urine Appearance Clear (CLEAR) 01/14/23 21:49 Urine pH 5 (5-7) 01/14/23 21:49 Ur Specific [place] 1.020 (1.005-1.030) 01/14/23 21:49 Urine Protein 1+ (Negative) H 01/14/23 21:49 Urine Glucose (UA) Norm (Normal) 01/14/23 21:49 Urine Ketones 1+ (Negative) H 01/14/23 21:49 Urine Blood Neg (Negative) 01/14/23 21:49 Urine Nitrate Positive (Negative) H 01/14/23 21:49 Urine Bilirubin 1+ (Negative) H 01/14/23 21:49 Urine Urobilinogen 4 mg/dL (Negative) H 01/14/23 21:49 Ur Leukocyte Esterase Trace (Negative) H 01/14/23 21:49 Urine RBC Rare /hpf (0-2) 01/14/23 21:49 Urine WBC 0-4 /hpf (0-5) H 01/14/23 21:49 Ur Squamous Epith Cells 0-4 /hpf (0-5) H 01/14/23 21:49 Amorphous Sediment Not Reportable 01/14/23 21:49 Urine Bacteria Trace /hpf (NONE) 01/14/23 21:49 Urine Mucus 3+ /hpf 01/14/23 21:49 Ethyl Alcohol 39 mg/dL (0-10) H 01/14/23 20:11 All radiology interpretation(s) finalized by discharge Discharge Plan Discharge Patient Disposition: Admitted As Inpatient Admit Provider: Alejandro Woodward Clinical Impression: Colitis, Gastroenteritis, Acute hypokalemia Condition: Stable Coding Level of Care Code ED [employer]ullion for Wilder Jackson
[2023-01-14] MEDS: lidocaine 2% viscous 15 ML, aluminum-mag hydrox-simethicon 30 ML, sucralfate oral liq 1 GM PO (22:35)
[2023-01-14] MEDS: ondansetron 2 mg/ML SDV 2 mL 4 MG IVP (22:37)
[2023-01-14] MEDS: haloperidol inj 5 mg/mL INJ 1 mL 3 MG IVP (22:39)
[2023-01-14] MEDS: sodium chlor 0.9% + KCl 40 mEq 40 MEQ/1,000 ML BAG 500 MEQ IV (22:40)
[2023-01-14] MEDS: HYDROmorphone 1 mg/mL INJ 1 mL IVP (22:41)
[2023-01-14] MEDS: pantoprazole 40 mg SDV 80 MG IVP (23:33)
[2023-01-14] MEDS: metroNIDAZOLE IV 500 MG/100 ML PREMIX 100 MG IV (23:38)
[2023-01-14 23:39] VITALS: BP 145/97; PULSE 107; RESP 18; O2SAT 93
[2023-01-15] VITALS (13 sets, daily range): BP systolic 116–138; BP diastolic 73–92; PULSE 72–102; RESP 14–20; TEMP 36.6–36.9; O2SAT 94–98
--- NOTE | 2023-01-15 | XRR_ITS ---
PROCEDURE INFORMATION: Exam: XR Chest Exam date and time: 01/15/2023 12:20 AM Age: 32 years old Clinical indication: Other: Weight loss TECHNIQUE: Imaging protocol: Radiologic exam of the chest. Views: 1 view. COMPARISON: CR (CHEST, ) 10/24/2022 5:57 PM FINDINGS: Lungs: Unremarkable. No consolidation. Pleural spaces: Unremarkable. No pleural effusion. No pneumothorax. Heart/Mediastinum: Unremarkable. No cardiomegaly. Bones/joints: Unremarkable. XR/XR chest 1V portable [id number] IMPRESSION: No acute findings.
--- NOTE | 2023-01-15 | CTR_ITS ---
PROCEDURE INFORMATION: Exam: CT Lumbar Spine Without Contrast Exam date and time: 01/15/2023 12:36 AM Age: 32 years old Clinical indication: Prior surgery; Surgery date: 6+ months; Surgery type: Appy; Patient HX: C/O low back pain TECHNIQUE: Imaging protocol: Computed tomography of the lumbar spine without contrast. Radiation optimization: All CT scans at this facility use at least one of these dose optimization techniques: automated exposure control; mA and/or kV adjustment per patient size (includes targeted exams where dose is matched to clinical indication); or iterative reconstruction. REPORTING DATA: Count of CT and Cardiac NM exams in prior 12 months: This patient has received 2 known CTs and 0 known cardiac nuclear medicine studies in the 12 months prior to the current study. COMPARISON: CT abdomen pelvis w con* [id number] 01/14/2023 10:05 PM RADIATION DOSE METRICS: Total DLP (mGy-cm): 892.44 FINDINGS: Bones/joints: There is minimal lower lumbar spinal degenerative disc disease with mild spinal canal narrowing at L5-S1. No acute osseous injury. Small regions of sclerosis right iliac wing measuring 6 mm is unchanged and could be a small osteoid osteoma. Liver: Geographic regions of hypodensity are again seen in the liver which again may represent fatty infiltration, incompletely assessed. Kidneys and ureters: There is excreted contrast in the renal collecting systems and ureters. Soft tissues: Unremarkable. CT/CT lumbar spine wo con* [id number] IMPRESSION: 1. No acute findings. 2. Degenerative disc disease with mild L5-S1 spinal canal stenosis. Possible small osteoid osteoma right iliac wing. 3. Geographic regions of hypodensity again seen in the liver. MRI follow-up recommended especially if there is a history of weight loss as stated on comparison chest x-ray.
--- NOTE | 2023-01-15 | ECG_ITS ---
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 Measurements Intervals [place] Rate: 104 P: 60 WY: 144 QRS: 32 QRSD: 107 T: 34 QT: 355 QTc: 467 Interpretive Statements SINUS TACHYCARDIA Compared to ECG 10/29/2014 20:07:18 Sinus rhythm no longer present Intraventricular conduction delay no longer present Electronically Signed On 01-15-2023 22:53:11 CDT by Gabriele Vazquez M.D. [email or web address] Networksgulf coast veterans health care systemExigen Insurance Solutionstrumbull regional medical centerSoundHound/store/OM/[id number]
--- NOTE | 2023-01-15 00:07 | P.HP_ITS ---
Providers/Chief Complaint Admitting Physician: Alejandro Woodward MD Primary Care Provider: James Chapa MD Chief Complaint: n/v History of Present Illness Shahriar Baker is a 32 year old male DVT, factor V Leiden, on Eliquis, history of chronic right upper quadrant pain, history of chronic back pain, history of mastectomy bilateral, who presents to [facility] due to nausea, vomiting, fatigue, malaise, fevers, chills, night sweats, weight loss, diffuse musculoskeletal aches and pains, severe low back pain inability to ambulate. 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, he has chronic back pain, but for the last few months, he has had severe low back pain, at times inability to ambulate, he has severe bilateral peripheral neuropathy he is not exactly sure why he has neuropathy prior physicians have told him he has nerve damage, he denies IV drug use, history of H IV hep C, he tells me he comes to the emergency room for the second time in the last 24 hours due to persistent nausea vomiting he did have 1 episode of bloody emesis, but none since then, he feels lightheaded, he feels weak, he tells me that he has, reports constipation, no bloody or black stools, denies any dysuria, does report diffuse abdominal pain, feeling nauseous, denies urinary incontinence, no bowel incontinence no saddle perianal anesthesia Review of Systems Const: Reports: fever(s), chills and body aches Eyes: Denies: change in vision Card: Denies: chest pain Resp: Denies: dyspnea GI: Reports: abdominal pain and vomiting Musc: Reports: back pain and extremity pain Skin/Breast: Denies: rash Neuro: Reports: weakness in extremities, difficulty walking and dizziness; Denies: headache(s) or numbness in extremities Medications/Allergies Home Medications Medication Instructions Recorded Confirmed Last Taken Type ibuprofen 200 mg tablet 800 mg PO Q6H PRN fever or pain 07/04/19 12/08/22 Unknown History dicyclomine 20 mg tablet 20 mg PO QID PRN abdominal pain 06/15/21 08/31/23 09/13/21 Rx #30 tabs apixaban 5 mg (74 tabs) tablets in See Rx Instructions PO .COMPLEX 12/21/20 12/08/22 12/07/22 Rx a dose pack (Eliquis DVT-PE Treat #74 ea 30D Start) gabapentin 100 mg capsule 100 mg PO TID PRN leg pain #30 caps 12/08/22 Unknown Rx trazodone 50 mg tablet 50 mg PO BEDTIME PRN Sleep 12/08/22 12/08/22 Unknown History promethazine 25 mg tablet 25 mg PO Q6H PRN nausea and 01/14/23 Unknown Rx vomiting #20 tabs tizanidine 4 mg tablet 4 mg PO Q6H PRN muscle spasticity 01/14/23 Unknown Rx #20 tabs Allergies Allergy/AdvReac Type Severity Reaction Status Date / Time No Known Allergies Allergy Verified 01/14/23 20:20 PFSH Acute PFSH: Medical History (Updated 01/15/23 @ 00:16 by Alejandro Woodward MD) History of DVT (deep vein thrombosis) History of factor V Leiden mutation Surgical History History of appendectomy History of bilateral mastectomy Family History Mother CAD (coronary artery disease) Other Adopted Social History Smoking and tobacco status: current every day smoker cigarettes Second hand smoke exposure: Yes Alcohol intake: current Alcohol intake frequency: few times a week Desire information about alcohol rehabilitation?: No Substance/Drug Use: current Substance/Drug use frequency: daily Other substance/drug use details: medicinal marijuana card Desire information about substance/drug rehabilitation?: No Vitals/I&O/Wt Last Vital Signs Temp 98.1 F 01/14/23 20:17 Pulse 107 H 01/14/23 23:39 Resp 18 01/14/23 23:39 BP 145/97 01/14/23 23:39 Pulse Ox 93 01/14/23 23:39 O2 Del Method Room Air 01/14/23 23:39 Weight last 48 hrs Weight 90.718 kg Physical Exam Const: COMMON NORMALS: no acute distress and patient oriented x3 GENERAL APPEARANCE: cooperative and well developed HENMT: COMMON NORMALS: normocephalic and Normal external nose present HEAD & SCALP: normocephalic FACE & SINUS: normal facial exam NOSE: Normal external nose present MOUTH: Normal oral and palatal mucosa present Eye: COMMON NORMALS: Equal, round and reactive pupils present, EOMs intact bilaterally, conjunctivae normal and no scleral icterus CONJUNCTIVA: Yes conjunctivae normal PUPIL: Yes Equal, round and reactive pupils present Neck/C-Spine: COMMON NORMALS: full ROM and No carotid bruits Chest: COMMONS NORMALS: normal inspection of the chest Resp: COMMON NORMALS: normal respiratory effort, No retractions, No use of accessory muscles and clear to auscultation bilaterally AUSCULTATION: clear to auscultation bilaterally Cardio: COMMON NORMALS: regular rate, regular rhythm, S1 normal heart sound present, S2 normal heart sound present, No murmurs present (Cardio) and Peripheral pulses 2+ throughout RATE: regular rate RHYTHM: regular rhythm HEART SOUNDS: S1 normal heart sound present and S2 normal heart sound present PERIPHERAL PULSES: Peripheral pulses 2+ throughout GI: COMMON NORMALS: Normal to inspection, nondistended, normoactive bowel sounds present and Soft to palpation OTHER: Does have diffuse abdominal tenderness : BLADDER/KIDNEY EXAM: Yes no CVA tenderness Back/Pelvis: COMMON NORMALS: no CVA tenderness Extremity: COMMON NORMALS: no calf tenderness and no pedal edema Neuro: COMMON NORMALS: patient oriented x3, CN's II-XII intact bilaterally and moves all extremities MENINGEAL SIGNS: Yes no meningeal signs OTHER: Has bilateral extremity weakness difficult to assess as he has severe peripheral neuropathy and pain with movement of lower extremities, no upper extremity weakness Psych: COMMON NORMALS: mental status grossly normal, Normal thought process present, cooperative and speech normal APPEARANCE: Yes well kempt SPEECH: Yes normal speech THOUGHT PROCESS: Normal thought process present Skin: COMMON NORMALS: turgor normal and no jaundice GENERAL SKIN EXAM: turgor normal Data 01/14/23 20:11 01/14/23 20:11 A&P Assessment and plan (1) Colitis: (2) Biliary colic: (3) Hypokalemia: (4) Transaminitis: (5) Elevated alkaline phosphatase level: (6) UTI (urinary tract infection): (7) Alcohol abuse: (8) Leukocytosis: (9) Weight loss: (10) Hyperbilirubinemia: Plan Abdominal pain CT/CT abdomen pelvis w con* [id number] IMPRESSION: 1. ? Distended gallbladder again visualized. No significant pericholecystic inflammation seen by CT. Correlate clinically. 2. ? Findings suggestive of diffuse colitis and small bowel enteritis which is likely infectious/inflammatory. No obstruction. Gastritis changes also present. 3. ? Hepatomegaly with geographic regions of hypodensity similar to previous likely fatty infiltration. This can be further characterized with a nonemergent liver protocol MRI for follow-up which is recommended. -Some component could be biliary colic -Does have sludge in the gallbladder on CAT scan -Does have colitis on CT imaging Plan -Admit to general medical floors -IV fluids -Continue Cipro and Flagyl -Serial abdominal exams -Patient does have elevated alk phos, elevated bili, elevated LFTs, this could be from alcohol related, but would consider doing an MRCP based on clinical progress given patient's weight loss, fevers, chills Dehydration, IV fluids Hypokalemia, will replace Transaminitis, with hyperbilirubinemia, with elevated alk phos ? Chronic ? Elevated blood alcohol levels, ? HIV, hep C ? GGT ? We will consider MRCP Elevated alcohol levels, history of alcohol abuse -[facility] protocol Weight loss, fevers, chills -Work-up as above add on Pro-Kevin, CRP, ESR -Severe low back pain CT lumbar spine Severe intractable back pain, pain control morphine, PT OT, CT lumbar spine Factor V Leiden, history of lower extremity DVT continue Eliquis Full code Eliquis for DVT prophylaxis Attestations Medical Necessity Statement*: Patient requires hospitalization, inpatient, greater than 2 midnights, for biliary colic, or nausea, vomiting, dehydration, colitis, hyperbilirubinemia, elevated alk phos, transaminitis, leukocytosis, weight loss, fevers, UTI, alcohol abuse Diagnoses Colitis K52.9 Biliary colic K80.50 Hypokalemia E87.6 Transaminitis R74.01 Elevated alkaline phosphatase level R74.8 UTI (urinary tract infection) N39.0 Alcohol abuse F10.10 Leukocytosis D72.829 Weight loss R63.4 Hyperbilirubinemia E80.6
[2023-01-15 00:45] LABS: Erythrocyte Sedimentation Rate 4 mm/hr (0-10)
[2023-01-15 01:07] LABS: D Dimer 0.79 ug/mLFEU (0-0.59)
[2023-01-15 01:10] LABS: Troponin(5th) Baseline < 6 ng/L (0-15)
[2023-01-15 01:11] LABS: Lactic Sepsis W/Reflex 3.3 mmol/L (0.5-2.2)
[2023-01-15 01:17] LABS: Free T4 Free Thyroxine 1.15 ng/dL (0.82-1.77)
[2023-01-15 01:31] LABS: Cortisol Random 17.08 ug/dL (2.47-19.5)
[2023-01-15] MEDS: dextrose 5%-sod chloride 0.9% 1,000 ML 100 ML IV ×2 (01:39→12:27)
[2023-01-15] MEDS: potassium chloride ER 20 mEq Tablet 40 MEQ PO (01:39)
[2023-01-15] MEDS: apixaban 5 mg Tablet 2.5 MG PO (01:40)
[2023-01-15 01:45] LABS: Procalcitonin 0.11 ng/mL (0-0.5); T3 Free 3.2 PG/ML (2.0-4.4); Testosterone Total 123.5 ng/dL (249-836); Thyroid Stimulating Hormone 2.65 uIU/mL (0.27-4.20)
[2023-01-15 01:47] LABS: LAB Peripheral Smear Sent for Review
[2023-01-15] MEDS: morphine 4 mg/mL SDV 1 mL 2 MG IVP ×6 (01:54→23:51)
[2023-01-15] MEDS: tizanidine 4 mg Tablet PO ×3 (01:55→19:37)
[2023-01-15 02:25] LABS: INR 1.17 (0.8-1.2); Reflex Lactate Order REFLEX LACTIC ORDERD
[2023-01-15 02:29] LABS: HIV 1 & 2 Antibody Non-Reactive (Non-Reactiv); HIV 1 & 2 Antigen Non-Reactive (Non-Reactiv)
[2023-01-15 02:33] LABS: Estmated Average Glucose 82; Hemoglobin A1C 4.5 % (4.0-6.0)
[2023-01-15 02:47] LABS: Hepatitis A Antibody IgM Non-Reactive (Nonreactive); Hepatitis B Core IgM Non-Reactive (Nonreactive); Hepatitis B Surface Antigen Non-Reactive (Nonreactive); Hepatitis C Virus Antibody Non-Reactive (Nonreactive)
--- NOTE | 2023-01-15 02:54 | ECG_ITS ---
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 Measurements Intervals [place] Rate: 98 P: 52 GA: 135 QRS: 38 QRSD: 113 T: 35 QT: 373 QTc: 478 Interpretive Statements SINUS RHYTHM MODERATE INTRAVENTRICULAR CONDUCTION DELAY [110+ ms QRS DURATION] Compared to ECG 01/15/2023 00:52:10 Intraventricular conduction delay now present Sinus tachycardia no longer present Electronically Signed On 01-15-2023 22:58:31 CDT by Gabriele Vazquez M.D. [email or web address]/store/OM/[id number]
[2023-01-15 03:09] LABS: Basophils # 0.1 10^3/uL (0.0-0.1); Basophils % 0.5 %; Hematocrit 41.3 % (37-53); Lymphocytes # 1.1 10^3/uL (0.8-4.8); Lymphocytes % 9.7 %; Mean Corpuscular HGB Conc 34.1 g/dL (30-55); Mean Corpuscular Hemoglobin 39.6 pg (27-33); Monocytes % 8.7 %; Neutrophils % 80.7 %; Nucleated Red Blood Cells % 0 %; Platelet Count 192 10^3/cmm (157-399); Red Blood Count 3.56 10^6/uL (3.85-5.65); Red Cell Distribution Width 15.5 % (12.1-15.1); White Blood Count 11.03 10^3/uL (3.29-11.43)
[2023-01-15 03:36] LABS: Alanine Aminotransferase 53 U/L (0-41); Albumin Level 3.3 g/dL (3.5-5.2); Alkaline Phosphatase 353 U/L (40-130); Aspartate Amino Transferase 106 U/L (0-40); Blood Urea Nitrogen 3 mg/dL (6-20); Calcium 8.2 mg/dL (8.5-10.5); Carbon Dioxide 25 mmol/L (22-29); Chloride 107 mmol/L (98-107); Globulin 2.1 g/dL (1.3-4.6); Glomerular Filtration Rate 195.2 mL/min (90-130); Glucose 116 mg/dL (65-115); Magnesium 1.4 mg/dL (1.7-2.3); Osmolality Calculated 290 mOsm/kg (285-295); Phosphorus 3.3 mg/dL (2.5-4.5); Sodium 141 mmol/L (136-145); Total Bilirubin 2.2 mg/dL (0.15-1.2); Total Protein 5.4 g/dL (6.6-8.7)
[2023-01-15 03:40] LABS: Amylase 27 U/L (28-100); Chol HDL Ratio 5.64 mg/dL (1.0-5.00); Cholesterol 158 mg/dL (0-200); HDL Cholesterol 28 mg/dL (60-100); LDL Cholesterol Calculated 107 mg/dL (50-129); LDL HDL Ratio 3.82 RATIO (0.00-3.22); Triglycerides 116 mg/dL (0-150)
[2023-01-15 04:07] LABS: Troponin 5 2HR 8.26 ng/L (0-15); Troponin 5 2HR Delta 2.26001 ABS# (0-10)
[2023-01-15 04:24] LABS: Gamma Glutamyl Transferase 1782 U/L (8-61)
--- NOTE | 2023-01-15 06:00 | ECG_ITS ---
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 Measurements Intervals [place] Rate: 93 P: 58 WY: 133 QRS: 43 QRSD: 117 T: 40 QT: 371 QTc: 464 Interpretive Statements SINUS RHYTHM MODERATE INTRAVENTRICULAR CONDUCTION DELAY [110+ ms QRS DURATION] Compared to ECG 01/15/2023 02:54:23 No significant changes Electronically Signed On 01-15-2023 22:57:57 CDT by Gabriele Vazquez M.D. [email or web address].[facility].[employer]/store/OM/[id number]
[2023-01-15] MEDS: ondansetron 2 mg/ML SDV 2 mL 4 MG IVP ×3 (06:07→23:17)
[2023-01-15 06:09] LABS: Amphetamines Screen Urine Negative (Negative); Barbiturates Screen Urine Negative (Negative); Benzodiazepines Screen Urine Negative (Negative); Cocaine Screen Urine Negative (Negative); Opiate Screen Urine Positive (Negative); PCP Screen Urine Negative (Negative); THC Screen Urine Positive (Negative)
[2023-01-15] MEDS: metroNIDAZOLE IV 500 MG/100 ML PREMIX 100 MG IV ×3 (06:09→23:02)
[2023-01-15 06:15] LABS: Lactic Acid level (Lactate) 2.1 mmol/L (0.5-2.2)
[2023-01-15 07:08] LABS: Troponin 5 6HR 7.13 ng/L (0-15)
[2023-01-15 07:09] LABS: Troponin 5 6HR Delta 1.13 ng/L (0-12)
[2023-01-15] MEDS: magnesium sulfate premix 2 GM/50 ML PIGGYBACK IV (07:27)
[2023-01-15] MEDS: nicotine 14 mg Patch 1 PATCH TRANSDERMA (09:00)
[2023-01-15] MEDS: apixaban 5 mg Tablet PO (09:00)
[2023-01-15] MEDS: multivitamin therapeutic Tablet 1 TAB PO (09:01)
[2023-01-15] MEDS: folic acid 1 mg Tablet PO (09:01)
[2023-01-15] MEDS: thiamine 100 mg Tablet PO (09:01)
[2023-01-15] MEDS: pantoprazole 40 mg SDV IVP (09:02)
[2023-01-15] MEDS: gabapentin 100 mg Capsule PO ×2 (09:04→19:37)
--- NOTE | 2023-01-15 10:25 | PC.PHAR ---
pt states he takes care of his own medications-pt states he gets the samples of the starter pack of eliquis and just takes one tab bid pt states he cant afford to get the eliquis from the pharmacy-rx written on 01/14/23 promethazine 25mg q6h prn and tizanidine 4mg q6h prn pt states not started as of 01/15/23-pt states he takes trazodone 50mg prn ext doesnt show when last filled-
[2023-01-15] MEDS: ciprofloxacin 400 MG/200 ML PREMIX 200 MG IV ×2 (12:27→23:53)
[2023-01-15] MEDS: enoxaparin 100 mg/mL Syringe 90 MG SUBCUT (15:17)
--- NOTE | 2023-01-15 17:01 | P.PN_ITS ---
Subjective Subjective: Continues to complain of pain over the right upper quadrant and diffusely over the abdomen. Requesting scheduled morphine. Nausea is better. Able to hold liquids down. Vitals/I&O/Wt Last Vital Signs Temp 98.0 F 01/15/23 15:26 Pulse 79 01/15/23 15:26 Resp 14 01/15/23 15:26 BP 116/77 01/15/23 15:26 Pulse Ox 98 01/15/23 15:26 O2 Del Method Room Air 01/15/23 15:26 01/15/23 01/15/23 01/15/23 06:59 14:59 22:59 Intake Total 1340 / 1340 1711.667 / 1711.667 100 / 1811.667 Output Total 550 / 550 Balance 1340 / 1340 1161.667 / 1161.667 100 / 1261.667 Weight last 48 hrs Weight 90.718 kg Physical Exam Narrative: General: No acute distress, AO x3 HEENT: PERRLA, pupils bilaterally equal and reactive, pallors not present Chest: Normal vesicular breath sounds, no added sounds, equal good air entry bilaterally CVS: S1-S2 regular, no murmurs, no tachycardia, no gallops, no rubs Abdomen: Soft, tender to palpation without rebound in the right upper quadrant Neuro: No focal deficits, no facial deformity, AO x3, power 5/5 in all limbs Data 01/15/23 02:51 01/15/23 02:51 Micro: Microbiology 01/15/23 00:25 Blood Culture - Preliminary Blood SPECIMEN COLLECTED 01/15/23 00:19 Blood Culture - Preliminary Blood SPECIMEN COLLECTED A&P Assessment and plan (1) Colitis: (2) Biliary colic: (3) Hypokalemia: (4) Transaminitis: (5) Elevated alkaline phosphatase level: (6) UTI (urinary tract infection): (7) Alcohol abuse: (8) Leukocytosis: (9) Weight loss: (10) Hyperbilirubinemia: Plan 32-year-old male with factor V Leyden on chronic anticoagulation with Eliquis, history of chronic right upper quadrant pain, alcohol abuse presenting to the emergency room yesterday with diffuse abdominal pain. He is also complaining of nausea vomiting and diarrhea over the last [address] abdomen showing findings of diffuse colitis and small bowel enteritis likely to be infectious versus inflammatory. #Diffuse colitis: Unclear precipitant for the same. Check enteric bacterial, parasite and C diff PCR Alternate differentials include inflammatory bowel disease given his young age and chronicity of symptoms. Less likely ischemic colitis (considered due to past history of factor V mutation) given that lactate normalized quickly, no gross signs of peritonitis at this time and patient has been taking Eliquis. N.p.o. for bowel rest IV fluids D5 normal saline to continue at 100 mL/h As needed morphine for pain control Continue ciprofloxacin and Flagyl #Abdominal pain could additionally be credit and collections representative of biliary colic -Does have sludge in the gallbladder on CAT scan Follow-up gallbladder ultrasound showing hepatomegaly with fatty infiltration and a distended gallbladder with sludge. Sonographic Meneses sign was negative on ultrasound. HIDA scan is recommended for further evaluation and has been ordered for the a.m. No evidence of pancreatitis on CT. Lipase normal. -Serial abdominal exams # Dehydration, IV fluids # Hypokalemia, resolved # Transaminitis, with hyperbilirubinemia, with elevated alk phos HIDA scan in a.m. ?May be related to alcoholic hepatitis given elevated blood alcohol levels and history of chronic alcohol abuse ? HIV, hep C screen negative # Elevated alcohol levels, history of alcohol abuse -[facility] protocol # Severe intractable back pain, pain control morphine, PT OT, CT lumbar spine # Factor V Leiden, history of lower extremity DVT d/c Eliquis, change to lovenox 1mg/kg s/c q12h in case surgical intervention needed for cholecytsitis Full code lovenox for DVT prophylaxis Attestations Medical Necessity Statement*: ongoing need for pain control, HIDA scan in am Coding Level of Care Code Acute Code for Chg Fwd Diagnoses Colitis K52.9 Biliary colic K80.50 Hypokalemia E87.6 Transaminitis R74.01 Elevated alkaline phosphatase level R74.8 UTI (urinary tract infection) N39.0 Alcohol abuse F10.10 Leukocytosis D72.829 Weight loss R63.4 Hyperbilirubinemia E80.6
[2023-01-15 18:38] LABS: Basophils % 0.4 %; Eosinophils % 0.4 %; Hematocrit 44.8 % (37-53); Lymphocytes # 1.2 10^3/uL (0.8-4.8); Lymphocytes % 14.4 %; Mean Corpuscular HGB Conc 33.7 g/dL (30-55); Mean Corpuscular Hemoglobin 39.2 pg (27-33); Mean Corpuscular Volume 116.4 fl (82-101); Mean Platelet Volume 9.1 fL (7.4-10.4); Monocytes # 0.6 10^3/uL (0.2-0.9); Neutrophils # 6.65 10^3/uL (1.8-7.7); Neutrophils % 77.4 %; Nucleated Red Blood Cells % 0 %; Platelet Count 174 10^3/cmm (157-399); Red Blood Count 3.85 10^6/uL (3.85-5.65); Red Cell Distribution Width 15.3 % (12.1-15.1); White Blood Count 8.57 10^3/uL (3.29-11.43)
[2023-01-16] VITALS (8 sets, daily range): BP systolic 106–121; BP diastolic 66–77; PULSE 64–81; RESP 15–22; TEMP 36.5–36.8; O2SAT 95–98
[2023-01-16] MEDS: enoxaparin 100 mg/mL Syringe 90 MG SUBCUT ×2 (02:17→14:17)
[2023-01-16] MEDS: dextrose 5%-sod chloride 0.9% 1,000 ML 100 ML IV ×2 (03:47→18:24)
[2023-01-16 05:15] LABS: Basophils % 0.4 %; Eosinophils # 0.1 10^3/uL (0.0-0.8); Eosinophils % 0.6 %; Hematocrit 40.3 % (37-53); Lymphocytes # 1.9 10^3/uL (0.8-4.8); Lymphocytes % 19.5 %; Mean Corpuscular HGB Conc 33.7 g/dL (30-55); Mean Corpuscular Hemoglobin 39.4 pg (27-33); Mean Corpuscular Volume 116.8 fl (82-101); Mean Platelet Volume 9.5 fL (7.4-10.4); Monocytes # 0.7 10^3/uL (0.2-0.9); Monocytes % 7.2 %; Neutrophils # 7.18 10^3/uL (1.8-7.7); Nucleated Red Blood Cells % 0 %; Platelet Count 166 10^3/cmm (157-399); Red Blood Count 3.45 10^6/uL (3.85-5.65); Red Cell Distribution Width 15.2 % (12.1-15.1); White Blood Count 9.97 10^3/uL (3.29-11.43)
[2023-01-16 05:47] LABS: Alanine Aminotransferase 43 U/L (0-41); Albumin Level 3.3 g/dL (3.5-5.2); Alkaline Phosphatase 310 U/L (40-130); Anion Gap 13.4 (5-19); Aspartate Amino Transferase 84 U/L (0-40); Blood Urea Nitrogen 3 mg/dL (6-20); Calcium 8.4 mg/dL (8.5-10.5); Carbon Dioxide 26 mmol/L (22-29); Chloride 105 mmol/L (98-107); Glomerular Filtration Rate 252.6 mL/min (90-130); Glucose 92 mg/dL (65-115); Osmolality Calculated 288 mOsm/kg (285-295); Potassium 3.4 mmol/L (3.5-5.1); Sodium 141 mmol/L (136-145); Total Bilirubin 2.7 mg/dL (0.15-1.2); Total Protein 5.3 g/dL (6.6-8.7)
[2023-01-16] MEDS: metroNIDAZOLE IV 500 MG/100 ML PREMIX 100 MG IV ×3 (06:15→23:14)
[2023-01-16] MEDS: nicotine 14 mg Patch 1 PATCH TRANSDERMA ×2 (09:53→14:17)
[2023-01-16] MEDS: pantoprazole 40 mg SDV IVP (09:53)
[2023-01-16] MEDS: thiamine 100 mg Tablet PO (09:54)
[2023-01-16] MEDS: folic acid 1 mg Tablet PO (09:54)
[2023-01-16] MEDS: multivitamin therapeutic Tablet 1 TAB PO (09:54)
[2023-01-16] MEDS: morphine 4 mg/mL SDV 1 mL 2 MG IVP (09:55)
[2023-01-16] MEDS: tizanidine 4 mg Tablet PO ×2 (09:55→18:28)
[2023-01-16] MEDS: ondansetron 2 mg/ML SDV 2 mL 4 MG IVP (09:58)
--- NOTE | 2023-01-16 10:40 | PM.PN ---
Subjective Subjective: Patient reports his abdominal pain is severe. Located in bilateral upper quadrants. He does report relief from morphine. He is seen after his HIDA scan. Read is pending. No bowel movements overnight. He denies prior colonoscopy. Reports he [place] due to his GERD. Patient reports severe lower extremity pain. Reports symptoms started over the summer. He also endorses associated numbness and tingling. Reports he was on gabapentin 300 3 times daily at home without relief. Medications: Reviewed: Yes Vitals/I&O/Wt Last Vital Signs Temp 98.3 F 01/16/23 07:50 Pulse 74 01/16/23 07:50 Resp 18 01/16/23 09:55 BP 121/76 01/16/23 07:50 Pulse Ox 96 01/16/23 07:50 O2 Del Method Room Air 01/16/23 07:50 01/15/23 01/16/23 01/16/23 22:59 06:59 14:59 Intake Total 498.333 / 2210.000 832 / 3042.000 100 / 100 Output Total 300 / 850 Balance 498.333 / 1660.000 532 / 2192.000 100 / 100 Weight last 48 hrs Weight 90.718 kg Physical Exam Narrative: General: Patient is awake. In mild to moderate distress. Head: Normocephalic. Atraumatic. EOM intact. Poor dentition. Neck: No JVD. Cardiovascular: RRR. No gallops. No murmurs. Edema in bilateral ankles. Lungs: Clear to auscultation, no use of accessory muscles, no crackles or wheezes. Skin: No jaundice. No rashes. Abdomen: Hypoactive bowel sounds, abdomen soft and tender in the upper quadrants. Genito Urinary: Genital exam not performed since complaints not related. Rectal: Rectal exam not performed since no symptoms indicated blood loss. Extremities: No cyanosis or clubbing. Ankles are abnormal. Musculoskeletal: No erythematous joints. Neurological: Moves all 4 extremities. No myoclonus. Feet and lower extremities are tender to light touch. Data 01/16/23 04:37 01/16/23 04:37 Micro: Microbiology 01/15/23 00:00 Urine Culture - Preliminary Urine,Voided 01/15/23 00:25 Blood Culture - Preliminary Blood NEGATIVE TO DATE 01/15/23 00:19 Blood Culture - Preliminary Blood NEGATIVE TO DATE A&P Assessment and plan (1) Colitis: Denies prior colonoscopy Continue Cipro and Flagyl Follow-up stool studies Will need referral for endoscopy after discharge Continue IV fluids Advance to clear liquid diet Adjusting analgesics (2) Hyperbilirubinemia: Hyperbilirubinemia associated with transaminitis Trend liver function enzymes Follow-up HIDA scan (3) Acute hypokalemia: Replace potassium as needed (4) Alcohol abuse: No evidence of withdrawal, currently approaching 48 hours of admission Continue thiamine and folic acid Continue CIWA protocol for now (5) Chronic bilateral low back pain with bilateral sciatica: Etiology unclear Lumbar CT reviewed Increase home gabapentin (6) Nicotine dependence, unspecified, uncomplicated: Continue nicotine patch (7) Weight loss: Patient reports unintentional weight loss this year (8) Transaminitis: Management as above Plan DVT prophylaxis: Lovenox CODE STATUS: Full code Attestations Medical Necessity Statement*: Patient admitted with colitis and severe uncontrolled pain requiring ongoing hospitalization for HIDA scan, IV antibiotics, IV fluids, and supportive care. Coding Level of Care Code Acute Code for [facility] Fwd Diagnoses Colitis K52.9 Hyperbilirubinemia E80.6 Acute hypokalemia E87.6 Alcohol abuse F10.10 Chronic bilateral low back pain with bilateral sciatica M54.42; M54.41; G89.29 Nicotine dependence, unspecified, uncomplicated F17.200 Weight loss R63.4 Transaminitis R74.01
[2023-01-16] MEDS: potassium chloride ER 20 mEq Tablet PO (11:06)
[2023-01-16] MEDS: ketorolac 30 mg/mL INJ 15 MG IVP ×2 (11:06→16:49)
--- NOTE | 2023-01-16 11:09 | MR_ITS ---
WS: [id number] MRI/MRCP OF THE ABDOMEN WITHOUT GADOLINIUM ENHANCEMENT TECHNIQUE: Coronal T2 Fase BH, Axial T2 Fase BH, Axial T2 FS BH, Zxial 3D Ron BH, Axial DWI BH, 2D MRCP Radial BH, 3D MRCP (Resp), and Axial 3D Dyn BH Post sequences. CLINICAL INFORMATION: Hyperbilirubinemia, borderline duct dilation COMPARISON: Recent HIDA scan and CT abdomen pelvis and ultrasound FINDINGS: Images degraded by breathing artifact Hepatomegaly. Geographic fatty infiltration of the liver. Marked enlargement of the caudate lobe susp icious for cirrhosis. Tiny pleural effusions with bibasilar atelectasis. Mild fluid distention of the gallbladder. No evidence of gallbladder wall thickening or pericholecystic fluid. Pancreatic head ap pears normal. No significant bile duct dilatation. Adrenal glands are normal. Normal caliber upper ab dominal aorta. Trace perihepatic and perisplenic ascites. No hydronephrosis in either kidney. Impression: Images degraded by motion artifact which limits examination 1. Mild fluid distention of the gallbladder. No evidence of acute cholecystitis. No gallbladder wall thickening or pericholecystic fluid. 2. Common bile duct difficult to visualize due to artifact. No evidence of common bile duct dilatati on. Normal caliber common bile duct at the pancreatic head. 3. Hepatomegaly with geographic fatty infiltration. 4. Small bilateral pleural effusions. 5. Hepatomegaly with marked enlargement of the caudate lobe suspicious for cirrhosis
[2023-01-16] MEDS: ciprofloxacin 400 MG/200 ML PREMIX 200 MG IV (11:10)
[2023-01-16 11:24] LABS: Magnesium 1.7 mg/dL (1.7-2.3)
--- NOTE | 2023-01-16 11:50 | PM.CONSULT ---
Providers/Reason For Consult Consulting Physician/Specialty*: Dr. Carrillo Mckenzie, DO/General surgery Reason for Consult*: Abdominal pain Attending Physician: Armand Mccabe MD Primary Care Provider: James Chapa MD History of Present Illness History of Present Illness Shahriar Baker is a 32 year old male who presents to the hospital as part of a 3-month course of epigastric and right upper quadrant abdominal pain radiating to his back along with nausea vomiting and hematemesis. He has a substance use disorder with alcohol and drinks heavily. He reports that his last drink was just before coming to the hospital. Nothing seems to make his pain better or worse. He denies any diarrhea, constipation, hematochezia and/or melena. His bilirubin has climbed to 2.[address] during his [address] stay. CT the abdomen pelvis shows diffuse enterocolitis and a distended gallbladder. Common bile duct was 6 mm. HIDA scan was performed and showed nonvisualization of the gallbladder to 120 minutes. Review of Systems General: Reports: 10 or more systems reviewed and unremarkable except in HPI and below Medications/Allergies Home Medications Medication Instructions Recorded Confirmed Last Taken Type dicyclomine 20 mg tablet 20 mg PO QID PRN abdominal pain 09/22/20 01/15/23 12/21/20 Rx #30 tabs trazodone 50 mg tablet 50 mg PO BEDTIME PRN Sleep 12/08/22 01/15/23 Unknown History promethazine 25 mg tablet 25 mg PO Q6H PRN nausea and 01/14/23 01/15/23 Unknown Rx vomiting #20 tabs tizanidine 4 mg tablet 4 mg PO Q6H PRN muscle spasticity 01/14/23 01/15/23 Unknown Rx #20 tabs apixaban 5 mg tablet (Eliquis) 5 mg PO BID 01/15/23 01/15/23 Unknown History gabapentin 300 mg capsule 300 mg PO TID 01/15/23 01/15/23 Unknown History naproxen sodium 220 mg tablet 440 mg PO Q12H PRN Pain 01/15/23 01/15/23 Unknown History (Aleve) Allergies Allergy/AdvReac Type Severity Reaction Status Date / Time No Known Allergies Allergy Verified 01/15/23 10:21 Current Medications Generic Name Dose Route Start Last Admin Trade Name Freq PRN Reason Stop Dose Admin Enoxaparin Sodium 90 mg 01/15/23 14:15 01/16/23 02:17 Enoxaparin 100 Mg/Ml Syringe 1 mg/kg (90 mg) 90 mg SUBCUT Administration Q12H [facility] Folic Acid 1 mg 01/15/23 09:00 01/16/23 09:54 Folic Acid 1 Mg Tablet PO 1 mg DAILY ANGELY Administration Metronidazole 500 mg in 100 mls @ 100 mls/hr 01/14/23 23:15 01/16/23 08:26 Flagyl Iv IV Infused Q8H ANGELY Infusion Protocol Dextrose/Sodium Chloride 1,000 mls @ 100 mls/hr 01/15/23 00:49 01/16/23 03:47 Dextrose 5%-Sod Chloride 0.9% IV 100 mls/hr .Q10H ANGELY Administration Ciprofloxacin/Dextrose 400 mg in 200 mls @ 200 mls/hr 01/15/23 12:00 01/16/23 11:10 Cipro IV 200 mls/hr Q12H ANGELY Administration Protocol Ketorolac Tromethamine 15 mg 01/16/23 11:00 01/16/23 11:06 Ketorolac 30 Mg/Ml Inj IVP 01/16/23 17:01 15 mg Q6H ANGELY Administration Multivitamins Therapeutic 1 tab 01/15/23 09:00 01/16/23 09:54 Multivitamin Therapeutic Tablet PO 1 tab DAILY ANGELY Administration Nicotine 1 patch 01/15/23 09:00 01/16/23 09:53 Nicotine 14 Mg Patch TRANSDERMA 1 patch DAILY ANGELY Administration Ondansetron HCl 4 mg 01/15/23 00:49 01/16/23 09:58 Ondansetron 2 Mg/Ml Sdv 2 Ml IVP 4 mg Q8H PRN Administration vomiting, or N/V if npo Pantoprazole Sodium 40 mg 01/15/23 08:00 01/16/23 09:53 Pantoprazole 40 Mg Sdv IVP 40 mg Q24H ANGELY Administration Thiamine Mononitrate 100 mg 01/15/23 09:00 01/16/23 09:54 Thiamine 100 Mg Tablet PO 100 mg DAILY ANGELY Administration Tizanidine HCl 4 mg 01/15/23 00:49 01/16/23 09:55 Tizanidine 4 Mg Tablet PO 4 mg Q6H PRN Administration muscle spasticity PFSH Acute PFSH: Medical History Alcohol intoxication Colitis Elevated alkaline phosphatase level Gastroenteritis History of DVT (deep vein thrombosis) History of factor V Leiden mutation Hypokalemia Leukocytosis UTI (urinary tract infection) Surgical History History of appendectomy History of bilateral mastectomy Family History Mother CAD (coronary artery disease) Other Adopted Social History Smoking and tobacco status: current every day smoker cigarettes Second hand smoke exposure: Yes Alcohol intake: current Alcohol intake frequency: few times a week Desire information about alcohol rehabilitation?: No Substance/Drug Use: current Substance/Drug use frequency: daily Other substance/drug use details: medicinal marijuana card Desire information about substance/drug rehabilitation?: No Vitals/I&O/Wt Last Vital Signs Temp 98.3 F 01/16/23 07:50 Pulse 74 01/16/23 07:50 Resp 18 01/16/23 09:55 BP 121/76 01/16/23 07:50 Pulse Ox 96 01/16/23 07:50 O2 Del Method Room Air 01/16/23 07:50 01/15/23 01/16/23 01/16/23 22:59 06:59 14:59 Intake Total 498.333 / 2210.000 832 / 3042.000 100 / 100 Output Total 300 / 850 Balance 498.333 / 1660.000 532 / 2192.000 100 / 100 Weight last 48 hrs Weight 200 lb Physical Exam Narrative: General : Patient is well developed , no acute distress, oriented x3 Head : Normal cephalic, a-traumatic. Ears : Pinnae and external canal are normal. Hearing is normal. Eyes : PERRLA, scleral icterus. No conjunctival discharge. Nose : Mucous membranes are without erythema. Throat : buccal mucosa is normal, gums are without significant recession or hypertrophy. Lungs : Equal chest rise bilaterally, no use of accessory muscles, trachea is midline. Cor : Rate and rhythm are normal. Abdomen : Soft, ND, tender of the epigastrium, negative Meneses's, no g/r/m Extremities : No edema, no cyanosis or clubbing, dorsalis pedis pulses are present bilaterally, non-tender to palpation of calves. Upper extremities are normal bilaterally. Back : non-tender to palpation, no CVA tenderness. Neuro : CN II - XII intact, Upper and lower extremities have equal and full strength Data 01/16/23 04:37 01/16/23 04:37 Micro: Microbiology 01/15/23 00:00 Urine Culture - Preliminary Urine,Voided 01/15/23 00:25 Blood Culture - Preliminary Blood NEGATIVE TO DATE 01/15/23 00:19 Blood Culture - Preliminary Blood NEGATIVE TO DATE A&P Assessment and plan (1) Alcohol withdrawal: (2) Hyperbilirubinemia: (3) Alcohol abuse: (4) Biliary colic: (5) Transaminitis: Plan MRCP ordered. He will need a dedicated liver MRI for follow-up of the fatty infiltration as recommended by radiology. He likely does need a cholecystectomy, but in this chronic setting and with acute alcohol withdrawal, an interval cholecystectomy would be preferred. We will treat with antibiotics for now. Further recommendations pending results of MRCP. If there is no choledocholithiasis, plan will be to discharge with 14-day course of antibiotics to be finished with Augmentin and follow-up in my office in 2 weeks to discuss interval cholecystectomy. Medical management per hospitalist Coding Level of Care Code 25843 Diagnoses Alcohol withdrawal F10.939 Hyperbilirubinemia E80.6 Alcohol abuse F10.10 Biliary colic K80.50 Transaminitis R74.01
[2023-01-16] MEDS: oxyCODONE 5 mg IR Tab/Cap PO ×2 (14:06→21:37)
--- NOTE | 2023-01-16 14:10 | NM_ITS ---
WS: [id number] NUCLEAR MEDICINE HIDA SCAN HISTORY: evaluate for cholecystitis COMPARISON: Ultrasound 01/14/2023 TECHNIQUE: The patient was intravenously injected with 8.4 mCi of TC99m Mebrofenin. Immediate imaging over the right upper quadrant was followed by 5 minute image and additional images for a total of 12 0 minutes. Enlarged heterogeneous liver. Heterogeneous uptake of radionuclide throughout the liver. There is sti ll uptake within the liver at 120 minutes. At 120 minutes the gallbladder is not identified. There is minimal increased uptake in the region of the gallbladder. Activity in the proximal small bowel was seen by 15 minutes. Good washout of the rad iotracer from the liver by 60 minutes. Ejection fraction of the gallbladder not performed as the gallbladder was not visualized. IMPRESSION: 1. Abnormal HIDA scan. Gallbladder is not visualized at 120 minutes. There is a very vague area of i ncreased uptake in the expected location of the gallbladder with wall thickening. Suspicious for high -grade cystic duct obstruction. No common bile duct obstruction. 2. Enlarged heterogeneous liver. At 120 minutes there is still activity in the liver. Delayed hepati c clearance of radiotracer can be seen with hepatocellular dysfunction and hepatitis.
[2023-01-16] MEDS: gabapentin 300 mg Capsule 600 MG PO ×2 (14:18→20:42)
[2023-01-17] VITALS (12 sets, daily range): BP systolic 110–116; BP diastolic 60–77; PULSE 67–90; RESP 15–20; TEMP 36.6–36.7; O2SAT 95–98
[2023-01-17] MEDS: ciprofloxacin 400 MG/200 ML PREMIX 200 MG IV ×3 (00:20→23:50)
[2023-01-17] MEDS: morphine 4 mg/mL SDV 1 mL IVP (00:56)
[2023-01-17] MEDS: enoxaparin 100 mg/mL Syringe 90 MG SUBCUT (01:56)
[2023-01-17] MEDS: tizanidine 4 mg Tablet PO ×3 (02:01→22:45)
[2023-01-17] MEDS: dextrose 5%-sod chloride 0.9% 1,000 ML 100 ML IV (04:38)
[2023-01-17 05:40] LABS: Basophils % 0.4 %; Eosinophils # 0.1 10^3/uL (0.0-0.8); Eosinophils % 1.1 %; Hematocrit 40.9 % (37-53); Lymphocytes # 1.9 10^3/uL (0.8-4.8); Lymphocytes % 18.9 %; Mean Corpuscular Hemoglobin 39.5 pg (27-33); Mean Corpuscular Volume 116.2 fl (82-101); Mean Platelet Volume 9.7 fL (7.4-10.4); Monocytes # 0.6 10^3/uL (0.2-0.9); Neutrophils # 7.25 10^3/uL (1.8-7.7); Neutrophils % 73.1 %; Nucleated Red Blood Cells % 0 %; Platelet Count 162 10^3/cmm (157-399); Red Blood Count 3.52 10^6/uL (3.85-5.65); White Blood Count 9.93 10^3/uL (3.29-11.43)
[2023-01-17 05:56] LABS: Alanine Aminotransferase 41 U/L (0-41); Albumin Level 3.2 g/dL (3.5-5.2); Alkaline Phosphatase 283 U/L (40-130); Anion Gap 11.8 (5-19); Aspartate Amino Transferase 104 U/L (0-40); Blood Urea Nitrogen 2 mg/dL (6-20); Calcium 8.5 mg/dL (8.5-10.5); Carbon Dioxide 27 mmol/L (22-29); Chloride 104 mmol/L (98-107); Globulin 2.1 g/dL (1.3-4.6); Glomerular Filtration Rate 252.6 mL/min (90-130); Glucose 114 mg/dL (65-115); Osmolality Calculated 285 mOsm/kg (285-295); Potassium 3.8 mmol/L (3.5-5.1); Sodium 139 mmol/L (136-145); Total Bilirubin 2.6 mg/dL (0.15-1.2); Total Protein 5.3 g/dL (6.6-8.7)
[2023-01-17] MEDS: metroNIDAZOLE IV 500 MG/100 ML PREMIX 100 MG IV ×3 (06:09→22:36)
[2023-01-17] MEDS: oxyCODONE 5 mg IR Tab/Cap PO (06:18)
[2023-01-17 07:34] LABS: Vitamin B12 (Cobalamin) 499 pg/mL (200-1100)
--- NOTE | 2023-01-17 09:26 | P.PN_ITS ---
Subjective Subjective: Patient states abdominal pain is slightly better today. He is on clear liquid diet but states oral intake has been very poor due to nausea and pain. Discussed general surgery recommendations and he is in agreement. Still complains of bilateral feet pain similiar to prior exam. Unsure if gabapentin dosing is helping with these symptoms. Reports continue diarrhea overnight. Medications: Reviewed: Yes Vitals/I&O/Wt Last Vital Signs Temp 97.8 F 01/17/23 07:11 Pulse 74 01/17/23 07:11 Resp 15 01/17/23 07:11 BP 110/77 01/17/23 07:11 Pulse Ox 97 01/17/23 07:11 O2 Del Method Room Air 01/17/23 07:11 01/16/23 01/17/23 01/17/23 22:59 06:59 14:59 Intake Total 220 / 1520 1300 / 2820 220 / 220 Output Total 500 / 500 700 / 1200 700 / 700 Balance -280 / 1020 600 / 1620 -480 / -480 Physical Exam Narrative: General: Patient is awake. Alert. Less ill appearing today. Head: Normocephalic. Atraumatic. EOM intact. Poor dentition. Neck: No JVD. Cardiovascular: RRR. No gallops. No murmurs. Edema in bilateral ankles. Lungs: Clear to auscultation, no use of accessory muscles, no crackles or w heezes. Skin: No jaundice. No rashes. Abdomen: Hypoactive bowel sounds, abdomen soft and tender in the upper quadrants. Extremities: No cyanosis or clubbing. Ankles are swollen. Musculoskeletal: No erythematous joints. Neurological: Moves all 4 extremities. No myoclonus. Feet and lower extremities are tender to touch as before. Data 01/17/23 05:18 01/17/23 05:18 Micro: Microbiology 01/15/23 00:00 Urine Culture - Preliminary Urine,Voided A&P Assessment and plan (1) Colitis: Continue Cipro and Flagyl Follow-up stool studies Will need referral for endoscopy after discharge Continue clear liquid diet until oral intake improves Encourage rotation to oral analgesics as tolerated Continue antiemetics as needed GS evaluated, will need to f/u in 6 weeks for cholecystectomy evaluation (2) Hyperbilirubinemia: Hyperbilirubinemia associated with transaminitis Trend liver function enzymes (3) Acute hypokalemia: K 3.8, monitor (4) Alcohol abuse: Acute withdrawal less likely given time since admission, d/c CIWA Continue thiamine and folic acid (5) Chronic bilateral low back pain with bilateral sciatica: Etiology unclear Lumbar CT reviewed w/ mild stenosis Continue trial of increased gabapentin, may need adjusted again May need additional back imaging if he fails to improve (6) Nicotine dependence, unspecified, uncomplicated: Continue nicotine patch (7) Weight loss: Patient reports unintentional weight loss this year (8) Transaminitis: Management as above Plan DVT prophylaxis: Lovenox CODE STATUS: Full code Attestations Medical Necessity Statement*: Patient admitted with colitis and severe uncontrolled pain requiring ongoing hospitalization for IV antibiotics, analgesics, and supportive care. Coding Level of Care Code Acute Code for [facility] Diagnoses Colitis K52.9 Hyperbilirubinemia E80.6 Acute hypokalemia E87.6 Alcohol abuse F10.10 Chronic bilateral low back pain with bilateral sciatica M54.42; M54.41; G89.29 Nicotine dependence, unspecified, uncomplicated F17.200 Weight loss R63.4 Transaminitis R74.01
[2023-01-17] MEDS: pantoprazole 40 mg SDV IVP (09:55)
[2023-01-17] MEDS: gabapentin 300 mg Capsule 600 MG PO ×3 (09:55→20:11)
[2023-01-17] MEDS: thiamine 100 mg Tablet PO (09:55)
[2023-01-17] MEDS: nicotine 14 mg Patch 1 PATCH TRANSDERMA (09:55)
[2023-01-17] MEDS: folic acid 1 mg Tablet PO (09:55)
[2023-01-17] MEDS: multivitamin therapeutic Tablet 1 TAB PO (09:55)
[2023-01-17] MEDS: apixaban 5 mg Tablet PO ×2 (09:58→20:11)
[2023-01-17] MEDS: oxyCODONE 5 mg IR Tab/Cap 10 MG PO ×4 (09:59→22:45)
--- NOTE | 2023-01-17 10:33 | P.PN_ITS ---
Subjective Subjective: Patient seen and examined. Pain improved and tolerating liquid diet Vitals/I&O/Wt Last Vital Signs Temp 98.4 F 01/18/23 07:59 Pulse 96 01/18/23 07:59 Resp 18 01/18/23 10:02 BP 104/57 01/18/23 07:59 Pulse Ox 96 01/18/23 10:02 O2 Del Method Room Air 01/18/23 04:00 01/17/23 01/18/23 01/18/23 22:59 06:59 14:59 Intake Total 340 / 1786.667 300 / 2086.667 340 / 340 Output Total / 1974 1875 / 3850 Balance -285 / -188.333 -1575 / -1763.333 340 / 340 Physical Exam Narrative: General: No acute distress, awake alert and oriented x3 Abdomen: Soft, mildly distended, tender to palpation over epigastrium, no guarding rebound or masses Data 01/17/23 05:18 01/18/23 05:11 Micro: Microbiology 01/15/23 00:00 Urine Culture - Final Urine,Voided A&P Assessment and plan (1) Alcohol withdrawal: (2) Hyperbilirubinemia: (3) Alcohol abuse: (4) Biliary colic: (5) Transaminitis: Plan MRCP showed no acute cholecystitis and normal common bile duct Regular diet He likely does need a cholecystectomy, but in this chronic setting and with acute alcohol withdrawal, an interval cholecystectomy would be preferred. We will treat with antibiotics for now. Further recommendations pending results of MRCP. If there is no choledocholithiasis, plan will be to discharge with 14-day course of antibiotics to be finished with Augmentin and follow-up in my office in 2 weeks to discuss interval cholecystectomy. Medical management per hospitalist Attestations 2 Medical Necessity Statement*: Per hospitalist Coding Level of Care Code 62446 Diagnoses Alcohol withdrawal F10.939 Hyperbilirubinemia E80.6 Alcohol abuse F10.10 Biliary colic K80.50 Transaminitis R74.01
[2023-01-17 14:39] LABS: Chlamydia Trachomatis RNA TMA NOT DETECTED (NOT DETECTED); Neisseria Gonorrhoeae RNA, TMA NOT DETECTED (NOT DETECTED)
[2023-01-18] VITALS: BP 124/76; PULSE 67; RESP 17; TEMP 36.6; O2SAT 97
[2023-01-18 04:00] VITALS: BP 131/63; PULSE 69; RESP 18; TEMP 36.6; O2SAT 98
[2023-01-18 05:52] LABS: Alanine Aminotransferase 62 U/L (0-41); Albumin Level 3.7 g/dL (3.5-5.2); Alkaline Phosphatase 300 U/L (40-130); Anion Gap 10.5 (5-19); Aspartate Amino Transferase 186 U/L (0-40); Calcium 9.2 mg/dL (8.5-10.5); Carbon Dioxide 30 mmol/L (22-29); Chloride 99 mmol/L (98-107); Globulin 2.2 g/dL (1.3-4.6); Glomerular Filtration Rate 195.2 mL/min (90-130); Glucose 92 mg/dL (65-115); Magnesium 1.5 mg/dL (1.7-2.3); Phosphorus 3.9 mg/dL (2.5-4.5); Potassium 3.5 mmol/L (3.5-5.1); Sodium 136 mmol/L (136-145); Total Bilirubin 2.7 mg/dL (0.15-1.2); Total Protein 5.9 g/dL (6.6-8.7)
[2023-01-18 05:55] LABS: Blood Urea Nitrogen 1 mg/dL (6-20); Osmolality Calculated 277 mOsm/kg (285-295)
[2023-01-18] MEDS: tizanidine 4 mg Tablet PO (06:38)
[2023-01-18] MEDS: metroNIDAZOLE IV 500 MG/100 ML PREMIX 100 MG IV (06:39)
[2023-01-18 07:59] VITALS: BP 104/57; PULSE 96; RESP 16; TEMP 36.9; O2SAT 96
[2023-01-18 08:45] VITALS: RESP 18; O2SAT 96
[2023-01-18] MEDS: oxyCODONE 5 mg IR Tab/Cap 10 MG PO (08:45)
[2023-01-18] MEDS: gabapentin 300 mg Capsule 600 MG PO (08:46)
[2023-01-18] MEDS: nicotine 14 mg Patch 1 PATCH TRANSDERMA (08:47)
[2023-01-18] MEDS: pantoprazole 40 mg SDV IVP (08:47)
[2023-01-18] MEDS: folic acid 1 mg Tablet PO (08:47)
[2023-01-18] MEDS: multivitamin therapeutic Tablet 1 TAB PO (08:47)
[2023-01-18] MEDS: thiamine 100 mg Tablet PO (08:48)
[2023-01-18] MEDS: apixaban 5 mg Tablet PO (09:43)
[2023-01-18 10:02] VITALS: RESP 18; O2SAT 96
--- NOTE | 2023-01-18 10:10 | PM.DCS ---
Discharge Providers Date of Admission: 01/15/23 00:20 Date of Discharge: January 18, 2023 Attending Provider at Admission: Alejandro Woodward MD Attending Provider at Discharge: Armand Mccabe MD Consults: General Surgery Primary Care Provider: James Chapa MD Diagnoses at Discharge Discharge Diagnosis (1) Colitis: Status: Acute (2) Hyperbilirubinemia: Status: Acute (3) Acute hypokalemia: Status: Acute (4) Alcohol abuse: Status: Acute (5) Chronic bilateral low back pain with bilateral sciatica: Status: Acute (6) Nicotine dependence, unspecified, uncomplicated: Status: Acute (7) Weight loss: Status: Acute (8) Transaminitis: Status: Acute Reason for Visit Reason for Visit: n/v Hospital Course Hospital Course Shahriar Baker is a 32-year-old male with a past medical history significant for deep vein thrombosis with factor V Leiden on Eliquis who presented with nausea, vomiting, fatigue, malaise, fevers, chills, night sweats, weight loss, diffuse musculoskeletal aches and pains, and severe low back pain. Work-up revealed colitis, suspected to be infectious. Patient initially treated with IV fluids, bowel rest, analgesics, and antiemetics. For antibiotics, he was treated with ciprofloxacin and Flagyl. His colitis symptoms improved with treatment. He will complete at least 14 days of antibiotic therapy. He was referred to general surgery for consideration of endoscopy after this acute illness resolves. Patient was also found to have transaminitis with hyperbilirubinemia. This is in the setting of alcohol use disorder with abuse. He was found to have alcohol withdrawal symptoms. He was treated with supportive care. He was educated on alcohol cessation. Patient likely has underlying liver disease. He needs further outpatient work-up and possibly referral to hepatology or gastroenterology. Will refer this management to his primary care physician. There was questionable cholecystitis with conflicting imaging impressions. General surgery was consulted and recommended cholecystectomy evaluation after his acute colitis resolves. He will be seen in general surgery clinic in approximately 6 weeks after discharge for consideration of cholecystectomy surgery. Patient's electrolytes were corrected as indicated. He was found to have chronic low back pain and chronic hyperesthesia of his bilateral lower extremities. Spinal compression was considered initially, however he had no red flag symptoms of spinal compression. Also, duration of symptoms made acute compression unlikely. Regardless, lumbar spine CT was obtained and found to be negative for any acute findings. Imaging did reveal degenerative disc disease with mild L5-S1 spinal canal stenosis. Patient's home gabapentin dose was adjusted for better analgesics. He worked with therapy. Patient symptomatology improved. He needs further outpatient work-up. Stable for discharge home. Patient discharged home with family. He will follow-up with his primary care physician as well as general surgery clinic in 6 weeks for further care. Physical Exam Narrative: General: Patient is awake.? Alert.? No acute distress. Head:? Normocephalic. Atraumatic. EOM intact.? Poor dentition. Neck: No JVD. Cardiovascular: RRR. No gallops. No murmurs.? Edema in bilateral ankles, unchanged from prior exam. Lungs: Clear to auscultation, no use of accessory muscles, no crackles or wheezes. Skin: No jaundice. No rashes. Abdomen: Normal active bowel sounds, abdomen soft. Extremities: No cyanosis or clubbing.? Ankles are swollen, unchanged. Musculoskeletal: No erythematous joints. Neurological: Moves all 4 extremities. No myoclonus.? Feet and lower extremities are tender to touch as before. Discharge Data Studies Completed and Pending Completed Studies During Hospitalization Category Date Time Status CT abdomen pelvis w con* [id number] Stat Cat Scan 01/14/23 21:[address] lumbar spine wo con* [id number] Stat Cat Scan 01/15/23 00:00 Completed XR chest 1V portable [id number] Stat Exams 01/15/23 00:00 Completed MR MRCP [id number] Routine MRI 01/16/23 11:09 Completed NM hepatobiliary w phar* [id number] Routine Nuc Med 01/16/23 14:10 Completed Pending at discharge Category Date Time Status Blood Culture Stat Lab 01/15/23 00:25 Results Clostridium Diffi Toxin Reflex Routine Lab 01/16/23 16:58 Received Enteric Bacteria [Salmonella / Shigella / Campy] Lab 01/15/23 17:05 Received Routine Parasite [OVA and Parasites, Conc and PE] Routine Lab 01/15/23 16:58 Received Radiology Impressions Abdomen/Pelvis CT 01/14/23 21:49 IMPRESSION: 1. Distended gallbladder again visualized. No significant pericholecystic inflammation seen by CT. Correlate clinically. 2. Findings suggestive of diffuse colitis and small bowel enteritis which is likely infectious/inflammatory. No obstruction. Gastritis changes also present. 3. Hepatomegaly with geographic regions of hypodensity similar to previous likely fatty infiltration. This can be further characterized with a nonemergent liver protocol MRI for follow-up which is recommended. Chest X-Ray 01/15/23 00:00 IMPRESSION: No acute findings. Lumbar Spine CT 01/15/23 00:00 IMPRESSION: 1. No acute findings. 2. Degenerative disc disease with mild L5-S1 spinal canal stenosis. Possible small osteoid osteoma right iliac wing. 3. Geographic regions of hypodensity again seen in the liver. MRI follow-up recommended especially if there is a history of weight loss as stated on comparison chest x-ray. Laboratory Results WBC 9.93 10^3/uL (3.29-11.43) 01/17/23 05:18 RBC 3.52 10^6/uL (3.85-5.65) L 01/17/23 05:18 Hgb 13.90 g/dL (11.27-16.99) 01/17/23 05:18 Hct 40.9 % (37-53) 01/17/23 05:18 MCV 116.2 fl (82-101) H 01/17/23 05:18 MCH 39.5 pg (27-33) H 01/17/23 05:18 MCHC 34.0 g/dL (30-55) 01/17/23 05:18 RDW 15.0 % (12.1-15.1) 01/17/23 05:18 Plt Count 162 10^3/cmm (157-399) 01/17/23 05:18 MPV 9.7 fL (7.4-10.4) 01/17/23 05:18 Neut % (Auto) 73.1 % 01/17/23 05:18 Lymph % (Auto) 18.9 % 01/17/23 05:18 [place] % (Auto) 6.0 % 01/17/23 05:18 Eos % (Auto) 1.1 % 01/17/23 05:18 Baso % (Auto) 0.4 % 01/17/23 05:18 Neut # (Auto) 7.25 10^3/uL (1.8-7.7) 01/17/23 05:18 Lymph # (Auto) 1.9 10^3/uL (0.8-4.8) 01/17/23 05:18 [place] # (Auto) 0.6 10^3/uL (0.2-0.9) 01/17/23 05:18 Eos # (Auto) 0.1 10^3/uL (0.0-0.8) 01/17/23 05:18 Baso # (Auto) 0.0 10^3/uL (0.0-0.1) 01/17/23 05:18 Nucleated RBC % (auto) 0 % 01/17/23 05:18 Nucleated RBCs # 0.0 /100WBC 01/17/23 05:18 Peripher Smr Path Cons Sent for review 01/15/23 00:25 ESR 4 mm/hr (0-10) 01/15/23 00:25 PT 15.30 SECONDS (12.1-14.9) H 01/15/23 00:25 INR 1.17 (0.8-1.2) 01/15/23 00:25 D-Dimer 0.79 ug/mLFEU (0-0.59) H 01/15/23 00:25 Sodium 136 mmol/L (136-145) 01/18/23 05:11 Potassium 3.5 mmol/L (3.5-5.1) 01/18/23 05:11 Chloride 99 mmol/L (98-107) 01/18/23 05:11 Carbon Dioxide 30 mmol/L (22-29) H 01/18/23 05:11 Anion Gap 10.5 (5-19) 01/18/23 05:11 BUN 1 mg/dL (6-20) L 01/18/23 05:11 Creatinine 0.5 mg/dL (0.7-1.2) L 01/18/23 05:11 GFR Calculation 195.2 mL/min (90-130) H 01/18/23 05:11 Glucose 92 mg/dL (65-115) 01/18/23 05:11 Estimat Average Glucose 82 01/15/23 00:25 Hemoglobin A1c 4.5 % (4.0-6.0) 01/15/23 00:25 Calculated Osmolality 277 mOsm/kg (285-295) L 01/18/23 05:11 Lactic Acid 3.3 mmol/L (0.5-2.2) H 01/15/23 00:25 Lactic Acid (Sepsis) 2.1 mmol/L (0.5-2.2) 01/15/23 05:21 Lactate 1.0 mmol/L (0.5-2.2) 01/16/23 04:37 Calcium 9.2 mg/dL (8.5-10.5) 01/18/23 05:11 Phosphorus 3.9 mg/dL (2.5-4.5) 01/18/23 05:11 Magnesium 1.5 mg/dL (1.7-2.3) L 01/18/23 05:11 Total Bilirubin 2.7 mg/dL (0.15-1.2) H 01/18/23 05:11 GGT 1782 U/L (8-61) H 01/15/23 00:25 AST 186 U/L (0-40) H 01/18/23 05:11 ALT 62 U/L (0-41) H 01/18/23 05:11 Alkaline Phosphatase 300 U/L (40-130) H 01/18/23 05:11 Troponin T Baseline < 6 ng/L (0-15) 01/15/23 00:25 Troponin T 120 Minute 8.26 ng/L (0-15) 01/15/23 02:51 Delta Troponin T 2.99397 ABS# (0-10) 01/15/23 02:51 Troponin T Hi Sens 6Hr 7.13 ng/L (0-15) 01/15/23 06:18 Troponin T Hi Sens 6Hr Delta 1.13 ng/L (0-12) 01/15/23 06:18 C-Reactive Protein 4.0 mg/L (0.0-4.9) 01/15/23 00:25 Total Protein 5.9 g/dL (6.6-8.7) L 01/18/23 05:11 Albumin 3.7 g/dL (3.5-5.2) 01/18/23 05:11 Globulin 2.2 g/dL (1.3-4.6) 01/18/23 05:11 Triglycerides 116 mg/dL (0-150) 01/15/23 00:25 Cholesterol 158 mg/dL (0-200) 01/15/23 00:25 LDL Cholesterol, Calc 107 mg/dL (50-129) 01/15/23 00:25 HDL Cholesterol 28 mg/dL (60-100) L 01/15/23 00:25 LDL/HDL Ratio 3.82 RATIO (0.00-3.22) H 01/15/23 00:25 Cholesterol/HDL Ratio 5.64 mg/dL (1.0-5.00) H 01/15/23 00:25 Amylase 27 U/L (28-100) L 01/15/23 00:25 Lipase 15 U/L (13-60) 01/14/23 20:11 Vitamin B12 Cancelled 01/15/23 00:25 Vit B12 Status 499 pg/mL (200-1100) 01/15/23 00:25 Folate 2.0 ng/mL (4.5-32.2) L 01/15/23 00:25 Procalcitonin 0.11 ng/mL (0-0.5) 01/15/23 00:25 TSH 2.65 uIU/mL (0.27-4.20) 01/15/23 00:25 Free T4 1.15 ng/dL (0.82-1.77) 01/15/23 00:25 Free T3 3.2 PG/ML (2.0-4.4) 01/15/23 00:25 Total Testosterone 123.5 ng/dL (249-836) L 01/15/23 00:25 Random Cortisol 17.08 ug/dL (2.47-19.5) 01/15/23 00:25 Urine Color [place] (Yellow) 01/14/23 21:49 Urine Appearance Clear (CLEAR) 01/14/23 21:49 Urine pH 5 (5-7) 01/14/23 21:49 Ur Specific [place] 1.020 (1.005-1.030) 01/14/23 21:49 Urine Protein 1+ (Negative) H 01/14/23 21:49 Urine Glucose (UA) Norm (Normal) 01/14/23 21:49 Urine Ketones 1+ (Negative) H 01/14/23 21:49 Urine Blood Neg (Negative) 01/14/23 21:49 Urine Nitrate Positive (Negative) H 01/14/23 21:49 Urine Bilirubin 1+ (Negative) H 01/14/23 21:49 Urine Urobilinogen 4 mg/dL (Negative) H 01/14/23 21:49 Ur Leukocyte Esterase Trace (Negative) H 01/14/23 21:49 Urine RBC Rare /hpf (0-2) 01/14/23 21:49 Urine WBC 0-4 /hpf (0-5) H 01/14/23 21:49 Ur Squamous Epith Cells 0-4 /hpf (0-5) H 01/14/23 21:49 Amorphous Sediment Not Reportable 01/14/23 21:49 Urine Bacteria Trace /hpf (NONE) 01/14/23 21:49 Urine Mucus 3+ /hpf 01/14/23 21:49 Urine Opiates Screen Positive ng/mL (Negative) H 01/14/23 21:49 Ur Barbiturates Screen Negative ng/mL (Negative) 01/14/23 21:49 Ur Phencyclidine Scrn Negative ng/mL (Negative) 01/14/23 21:49 Ur Amphetamines Screen Negative ng/mL (Negative) 01/14/23 21:49 U Benzodiazepines Scrn Negative ng/mL (Negative) 01/14/23 21:49 Urine Cocaine Screen Negative ng/mL (Negative) 01/14/23 21:49 U Marijuana (THC) Screen Positive ng/mL (Negative) H 01/14/23 21:49 Ethyl Alcohol 39 mg/dL (0-10) H 01/14/23 20:11 C.trachomatis RNA (TMA) Not detected (NOT DETECTED) 01/14/23 21:49 Chlamydia/GC Comment See note 01/14/23 21:49 C. difficile Tox (PCR) Cancelled 01/15/23 16:58 Hepatitis A IgM Ab Non-reactive (Nonreactive) 01/15/23 00:25 Hep Bs Antigen Non-reactive (Nonreactive) 01/15/23 00:25 Hep B Core IgM Ab Non-reactive (Nonreactive) 01/15/23 00:25 Hepatitis C Antibody Non-reactive (Nonreactive) 01/15/23 00:25 HIV 1&2 Ab & HIV 1 Ag Non-reactive (Non-Reactiv) 01/15/23 00:25 HIV 1&2 Antibody Non-reactive (Non-Reactiv) 01/15/23 00:25 N.gonorrhoeae RNA (TMA) Not detected (NOT DETECTED) 01/14/23 21:49 Vitals Last Vital Signs Temp 98.4 F 01/18/23 07:59 Pulse 96 01/18/23 07:59 Resp 18 01/18/23 10:02 BP 104/57 01/18/23 07:59 Pulse Ox 96 01/18/23 10:02 O2 Del Method Room Air 01/18/23 04:00 Discharge Plan Discharge Patient Disposition: Home Condition: Stable Prescriptions: New folic acid 1 mg Tablet 1 mg PO DAILY 30 Days Qty: 30 5RF oxycodone 5 mg Tablet 10 mg PO Q4H PRN (Reason: Moderate Pain) 7 Days Qty: 42 0RF Rx Instructions: meds to beds gabapentin 800 mg tablet 800 mg PO TID Qty: 90 5RF ciprofloxacin HCl 500 mg tablet 250 mg PO BID 11 Days Qty: 22 0RF metronidazole 500 mg tablet 500 mg PO TID 11 Days Qty: 33 0RF pantoprazole 40 mg tablet,delayed release (DR/EC) 40 mg PO BID 56 Days Qty: 112 0RF Continued dicyclomine 20 mg tablet 20 mg PO QID PRN (Reason: abdominal pain) Qty: 30 0RF tizanidine 4 mg tablet 4 mg PO Q6H PRN (Reason: muscle spasticity) Qty: 20 0RF Patient Comments: Patient just prescribed medication, has not yet taken it. Rx Instructions: do not exceed 3 doses per 24 hrs promethazine 25 mg tablet 25 mg PO Q6H PRN (Reason: nausea and vomiting) Qty: 20 0RF Patient Comments: Patient just prescribed medication, has not yet taken it. Eliquis 5 mg Tablet 5 mg PO BID Aleve 220 mg Tablet 440 mg PO Q12H PRN (Reason: Pain) trazodone 50 mg Tablet 50 mg PO BEDTIME PRN (Reason: Sleep) Discontinued gabapentin 300 mg Capsule 300 mg PO TID Discharge Orders: Discharge Order (Routine); Ordered 01/18/23 Ordered By: Armand Mccabe Referrals: Carrillo Mckenzie DO [Physician] - 6 Weeks (We have notified your physician's clinic of the need for a follow-up appointment to be scheduled. If you have not heard from them within the next 2 business days, please call them directly. You may also reach out to our engineering design manager at [phone] and she can assist you.) James Chapa MD [Primary Care Provider] - 01/20/23 10:00 am Discharge Diet: Advance as tolerated and Usual diet Discharge Activity: Resume usual activity, Increase activity as tolerated and Use walker/crutches as instructed Patient Instructions: Ciprofloxacin (By mouth), Oxycodone/Acetaminophen (By mouth), Metronidazole (By mouth), Gabapentin (By mouth), Pantoprazole (By mouth), Cholecystitis (GEN), Opioid Safety Activity Restrictions/Additional Instructions: 1. Take medications as prescribed. 2. Smoking and alcohol cessation. 3. Follow up with PCP. Recommend discussion regarding hepatology referral from PCP. 4. Follow up with general surgery in 6 weeks for cholecystectomy evaluation and endoscopy discussion. 5. Increase activity as tolerated. Return and red flag symptoms discussed. Discharge Attestations Time Spent in Discharge Care*: greater than 30 min Quality Metrics Clinical Quality Measures [ No reported AMI, CVA or VTE this stay] Coding Level of Care Code Acute Code for Chg Fwd Diagnoses Colitis K52.9 Hyperbilirubinemia E80.6 Acute hypokalemia E87.6 Alcohol abuse F10.10 Chronic bilateral low back pain with bilateral sciatica M54.42; M54.41; G89.29 Nicotine dependence, unspecified, uncomplicated F17.200 Weight loss R63.4 Transaminitis R74.01
[2023-01-18 11:28] VITALS: BP 120/77; PULSE 81; RESP 16; TEMP 36.9; O2SAT 96
== END 2023-01-18 12:05 | disposition home or self-care (01) | DRG 392 ==
LOC: ER 22:20 → MEDSURG 01-15 00:46
PROVIDERS: Nurse Practitioner Family; Student in an Organized Health Care Education/Training Program; Admitting Provider Family Medicine; Emergency Provider Emergency Medicine; PCP Family Medicine; Visit Provider Internal Medicine
DX: K52.9 Noninfective gastroenteritis and colitis, unspecified (principal); D68.51 Activated protein C resistance; F10.139 Alcohol abuse with withdrawal, unspecified; N39.0 Urinary tract infection, site not specified; Z86.718 Personal history of other venous thrombosis and embolism; M51.17 Intervertebral disc disorders with radiculopathy, lumbosacral region; F10.10 Alcohol abuse, uncomplicated; R74.01 Elevation of levels of liver transaminase levels; K81.9 Cholecystitis, unspecified; G89.29 Other chronic pain; Z79.01 Long term (current) use of anticoagulants; Z79.891 Long term (current) use of opiate analgesic; G62.9 Polyneuropathy, unspecified; Z86.19 Personal history of other infectious and parasitic diseases; F17.210 Nicotine dependence, cigarettes, uncomplicated; K21.9 Gastro-esophageal reflux disease without esophagitis; E86.0 Dehydration; R74.8 Abnormal levels of other serum enzymes; E87.6 Hypokalemia
CPT/HCPCS: 36415; 71045; 72131; 74177; 74181; 78227; 80053; 80061; 80074; 80306; 80307; 80503; 81001; 82150; 82533; 82607; 82746; 82977; 83036; 83605; 83690; 83735; 84100; 84145; 84403; 84439; 84443; 84481; 84484; 85025; 85378; 85610; 85651; 86140; 87040; 87045; 87086; 87177; 87209; 87324; 87427; 87449; 87491; 87591; 87806; 93005; 96365; 96372; 96375; 97110; 97116; 97161; 97165; 97530; 97535; 97760; 99285; A9537; C9113; J0744; J1170; J1630; J1650; J1885; J2270; J2405; J3411; J3475; J3490; J7042; Q9967

== ENCOUNTER 2023-08-15 15:30 | Outpatient (RCR) | payer OTHER, BC, MEDICAID, SELFPAY | END 2023-09-08 23:59 | disposition home or self-care (01) | LOC: SPT 15:30 | PROVIDERS: PCP Family Medicine; Visit Provider Family Medicine | DX: M54.50 Low back pain, unspecified (principal); G89.29 Other chronic pain | CPT/HCPCS: 97110; 97161; G0283 ==

== ENCOUNTER 2023-09-09 06:00 | Outpatient (RCR) | payer OTHER, BC, MEDICAID, SELFPAY | END 2023-10-08 23:59 | disposition home or self-care (01) | LOC: SPT 06:00 | PROVIDERS: PCP Family Medicine; Visit Provider Family Medicine | DX: M54.50 Low back pain, unspecified (principal); G89.29 Other chronic pain | CPT/HCPCS: 97110; G0283 ==

== ENCOUNTER 2023-10-09 06:00 | Outpatient (RCR) | payer OTHER, BC, MEDICAID, SELFPAY | END 2023-11-08 23:59 | disposition home or self-care (01) | LOC: SPT 06:00 | PROVIDERS: PCP Family Medicine; Visit Provider Family Medicine | DX: M54.50 Low back pain, unspecified (principal); G89.29 Other chronic pain | CPT/HCPCS: 97110; G0283 ==

== ENCOUNTER 2023-12-05 10:46 | Outpatient (CLI) | payer OTHER, BC, MEDICAID, SELFPAY ==
--- NOTE | 2023-12-05 10:48 | MR_ITS ---
WS: [id number] MRI LUMBAR SPINE NONCONTRAST HISTORY: LUMBAR RADICULOPATHY COMPARISON: CT lumbar spine 01/15/2023 TECHNIQUE: Sagittal and axial multisequence imaging is submitted. Normal lumbar alignment with no compression fractures or marrow edema. Disc spaces and vertebral body heights are well-preserved. Conus terminates normally at L1-2 disc level. L1-L2: Normal. L2-L3: Normal. L3-L4: Mild annular disc bulging. Small amount of fluid in the facet joints. Very mild narrowing of t he LEFT foramen. There is very slight contact on the exiting LEFT L3 nerve root. L4-L5: Mild annular disc bulging with ligamentum flavum and facet arthritis. Small amount of fluid in the LEFT facet joint. Mild to moderate LEFT foraminal narrowing and mild RIGHT foraminal narrowing. L5-S1: Mild facet joint arthritis. Very mild foraminal narrowing. MR/MR lumbar spine wo con* [id number] IMPRESSION: 1. No high-grade central or foraminal stenosis. 2. Mild to moderate LEFT and mild RIGHT foraminal stenosis at L4-5. 3. Very mild foraminal narrowing at L5-S1 and on the LEFT at L3-4.
== END 2023-12-05 10:47 | disposition home or self-care (01) ==
LOC: RAD 10:46
PROVIDERS: PCP Family Medicine; Visit Provider Family Medicine
DX: M99.63 Osseous and subluxation stenosis of intervertebral foramina of lumbar region (principal); K81.9 Cholecystitis, unspecified
CPT/HCPCS: 72148

== ENCOUNTER 2023-12-12 08:20 | Day surgery (SDC) | payer OTHER, BC, MEDICAID, SELFPAY ==
[2023-12-12] VITALS (10 sets, daily range): BP systolic 111–150; BP diastolic 77–91; PULSE 69–96; RESP 12–28; TEMP 36.2–37.3; O2SAT 90–97; BMI 29.0
--- NOTE | 2023-12-12 09:18 | ANES.PREANE2 ---
Pre-Anesthetic Assessment Height/Weight: Height 6 ft 1 in Weight 220 lb Temp Pulse Resp BP Pulse Ox O2 Del Method 99.1 F 79 16 111/77 97 Room Air 12/12/23 08:49 12/12/23 08:49 12/12/23 08:49 12/12/23 08:49 12/12/23 08:49 12/12/23 08:54 Preop Diagnosis: Cholecystitis Operation Date: 12/12/23 10:20 Proposed Procedures p Laparoscopic Cholecystectomy 63292, K82.9(Not Applicable) - Carrillo Mckenzie DO Last intake: Intake Last Liquid Date 12/11/23 Last Liquid Time 16:00 Last Solid Date 12/11/23 Last Solid Time 22:35 Social Tobacco Stop drinking last year, prior alcoholic Exam alert, oriented x 3, clear to auscultation bilaterally and regular rate & rhythm Airway Submandibular: within normal limits Cervical ROM: within normal limits Mallampati: Class III Comments: Comments: Extremely poor dentition, multiple teeth chipped/broken. Entire upper teeth are black Anesthetic Plan ASA status: 3 Anesthesia: General Other: Patient reports awareness under anesthesia. These events were during ear tubes as a child and recent endoscopy procedure. NPO since midnight Patient has factor V Leiden, blood clots in bilateral lower extremities 3 years ago on chronic Eliquis. Most recent taken 5 days ago. Current smoker, on chronic inhalers. No oxygen Chronic hepatitis, liver enzymes elevated. Patient states that they want him to undergo a MRI of his liver for further workup Chronic pain, on oxycodone 10?325, 3?4 times daily Patient has left lower extremity weakness uses a cane to ambulate Denies any cardiac issues, EKG sinus rhythm Plan for GETA with video laryngoscopy due to poor dental hygiene Medications/Allergies Home Medications Medication Instructions Recorded Confirmed Last Taken Type dicyclomine 20 mg tablet 20 mg PO QID PRN abdominal pain 09/22/20 12/12/23 12/21/20 Rx #30 tabs promethazine 25 mg tablet 25 mg PO Q6H PRN nausea and 01/14/23 12/08/23 12/10/23 Rx vomiting #20 tabs folic acid 1 mg tablet 1 mg PO DAILY 30 days #30 tabs 01/18/23 12/08/23 12/11/23 Rx gabapentin 800 mg tablet 800 mg PO TID #90 tabs 01/18/23 12/08/23 12/11/23 Rx oxycodone 10 mg tablet 10 mg PO Q6H PRN Pain 03/01/23 12/08/23 12/12/23 06:30 History apixaban 5 mg tablet (Eliquis) 5 mg PO BID 12/08/23 12/08/23 12/06/23 History multivitamin 1 tab PO DAILY 12/08/23 12/08/23 12/11/23 History tizanidine 4 mg capsule (Zanaflex) 4 mg PO Q6H PRN Muscle Spasm 12/08/23 12/08/23 12/11/23 History Allergies Allergy/AdvReac Type Severity Reaction Status Date / Time No Known Allergies Allergy Verified 12/08/23 09:49 [facility] Anesthesia Medical History Gastroenteritis Colitis Hyperbilirubinemia Weight loss Leukocytosis UTI (urinary tract infection) Elevated alkaline phosphatase level Transaminitis Hypokalemia Colitis History of DVT (deep vein thrombosis) History of factor V Leiden mutation Chronic bilateral low back pain with bilateral sciatica Alcohol abuse Alcohol intoxication Biliary colic Nicotine dependence, unspecified, uncomplicated Surgical History History of bilateral mastectomy History of appendectomy Family History Mother CAD (coronary artery disease) Other Adopted Social History Smoking and tobacco/nicotine status: current every day tobacco/nicotine user cigarettes Second hand smoke exposure: Yes Alcohol intake: current Alcohol intake frequency: few times a week Substance/Drug Use: current Substance/Drug use frequency: daily Other substance/drug use details: medicinal marijuana card Data Anesthesia Cardiac Studies: No Data to Display
[2023-12-12] MEDS: sodium chloride 0.9% 1,000 ML 30 ML IV (09:46)
--- NOTE | 2023-12-12 09:50 | W.PM.OPSUD ---
Surgery/Procedure H&P Update DATE OF PROCEDURE: December 12, 2023 DATE H&P PERFORMED: 11/30/23 H&P UPDATE INFORMATION: I have reviewed H&P completed within last 30 days, I have examined patient prior to procedure and No changes to prior documentation PREOP DIAGNOSIS: Cholecystitis PLANNED PROCEDURE: Operation Date: 12/12/23 10:20 Proposed Procedures p Laparoscopic Cholecystectomy 57113, K82.9(Not Applicable) - Carrillo Mckenzie DO
[2023-12-12] MEDS: ceFAZolin 2,000 mg SDV 2000 MG IVP (10:37)
[2023-12-12] MEDS: lidocaine-epi 2% PF 1:200,000 20 mL SDV XX (11:07)
--- NOTE | 2023-12-12 11:16 | P.OP_ITS ---
Operative Report Date of procedure: December 12, 2023 Pre-op diagnosis: Nonvisualization of the gallbladder on HIDA scan Cholecystitis Post-op diagnosis: same Surgeon: Carrillo Mckenzie DO Brief History: This is a very pleasant 33-year-old gentleman who originally presented to the ER with cholecystitis. He was successfully treated with antibiotics. A HIDA scan showed nonvisualization of the gallbladder. Laparoscopic cholecystectomy is indicated. The risks and benefits were explained and documented. Procedure: Procedure performed: Laparoscopic cholecystectomy Surgeon: Dr. Carrillo Mckenzie DO Estimated blood loss: 5 mL Specimens: Gallbladder to pathology Complications: None apparent Description of procedure: Patient was wheeled into the operative room and placed on the OR table in a supine position. Abdomen was inspected prepped and draped in usual sterile fashion. Time-out was performed and all present were in agreement. A 15 blade scalp was used to make a stab incision in the left upper quadrant and intra- abdominal insufflation was achieved using a Veress needle. After localizing the tissue incisions were made and a 5 millimeter trocar was placed into the umbilicus as well as 2 in the right upper quadrant. A 12 millimeter trocar was placed in the epigastrium. Gallbladder was grasped and elevated. The triangle of [place]ot was carefully dissected using blunt dissection and electrocautery until the triangle of [place] clearly identified. The cystic duct was clipped proximally and double clipped distally. The duct was then ligated proximally. The cystic artery was doubly clipped and ligated. The gallbladder was then removed from the liver bed using electrocautery. The gallbladder was removed from the abdomen using an Endo-Catch bag through the epigastric incision. The liver bed was inspected and no bleeding was seen. The abdomen was irrigated and suctioned. All ports removed. Skin was washed and dried. Incisions were closed with 4-0 Monocryl in a subcuticular interrupted fashion. Skin glue was applied. Patient tolerated the procedure well.
--- NOTE | 2023-12-12 11:38 | PC.NURSE ---
[place], PERIANESTHESIA RN medicated pt
[2023-12-12] MEDS: oxyCODONE-APAP 10-325 mg Tablet 1 TAB PO (12:44)
--- NOTE | 2023-12-12 13:42 | ANE.PACU2 ---
Inpatient post-anesthesia follow up: Airway intact: Yes Vital signs: Temperature 98.7 F Pulse Rate 80 Respiratory Rate 16 Blood Pressure 135/91 Pulse Oximetry 94 Oxygen Delivery Me thod Room Air Oxygen Flow Rate 4 Fraction of Inspir ed Oxygen Hydration adequate: Yes Nausea and vomiting: No Pain level: 3 Mental status: Baseline
== END 2023-12-12 13:30 | disposition home or self-care (01) ==
PROVIDERS: PCP Family Medicine; Visit Provider Surgery
PROC: 0FT44ZZ Resection of Gallbladder, Percutaneous Endoscopic Approach (ICD-10-PCS; CPT 47562; principal; 2023-12-12 10:10)
DX: K81.1 Chronic cholecystitis (principal); Z79.01 Long term (current) use of anticoagulants; G89.29 Other chronic pain; Z79.891 Long term (current) use of opiate analgesic; F17.210 Nicotine dependence, cigarettes, uncomplicated; Z86.718 Personal history of other venous thrombosis and embolism
CPT/HCPCS: 47562; 88304; J0690; J1100; J2250; J2405; J2704; J3010; J3490; J7030

== ENCOUNTER 2024-01-09 08:41 | Day surgery (SDC) | payer OTHER, BC, MEDICAID, SELFPAY ==
[2024-01-09] VITALS (10 sets, daily range): BP systolic 92–124; BP diastolic 40–91; PULSE 70–87; RESP 13–19; TEMP 36.1–36.6; O2SAT 98–100
--- NOTE | 2024-01-09 09:06 | W.PM.OPSUD ---
Surgery/Procedure H&P Update DATE OF PROCEDURE: January 09, 2024 DATE H&P PERFORMED: 12/25/23 H&P UPDATE INFORMATION: I have reviewed H&P completed within last 30 days, I have examined patient prior to procedure and No changes to prior documentation PLANNED PROCEDURE: Operation Date: 01/09/24 10:10 Proposed Procedures p Excision of subcutaneous mass on forehead 78561, R22.0(Not Applicable) - Carrillo Mckenzie, DO
--- NOTE | 2024-01-09 09:11 | ANES.PREANE2 ---
Pre-Anesthetic Assessment Height/Weight: Height 6 ft 1 in Weight 218 lb Temp Pulse Resp BP Pulse Ox O2 Del Method 98 F 87 18 101/72 100 Room Air 01/09/24 08:59 01/09/24 08:59 01/09/24 08:59 01/09/24 08:59 01/09/24 08:59 01/09/24 08:59 Preop Diagnosis: Forehead mass Operation Date: 01/09/24 10:10 Proposed Procedures p Excision of subcutaneous mass on forehead [address]99, R22.0(Not Applicable) - Carrillo Mckenzie, DO Was Beta Jordan taken within 24 hours: N/A Was Clonidine taken within 24 hours: N/A Last intake: Intake Last Liquid Date 01/08/24 Last Liquid Time 22:00 Last Solid Date 01/08/24 Last Solid Time 22:00 Exam alert, oriented x 3, clear to auscultation bilaterally and regular rate & rhythm Airway Submandibular: within normal limits Cervical ROM: within normal limits Mallampati: Class III Comments: Comments: Very poor dentition, multiple teeth chipped/broken Anesthetic Plan ASA status: 3 Anesthesia: General Other: No prior issues with anesthesia NPO since midnight Patient recently had a cholecystectomy under general anesthesia without issues Factor V Leiden, on chronic Eliquis. Taken 5 days ago Current smoker, on chronic inhalers Chronic hepatitis. Patient still needs to receive his MRI Chronic oxycodone use Left lower extremity weakness, uses a cane to ambulate Prior EKG showing sinus rhythm with moderate conduction delay Plan for general anesthesia with LMA/ETT Medications/Allergies Home Medications Medication Instructions Recorded Confirmed Last Taken Type dicyclomine 20 mg tablet 20 mg PO QID PRN abdominal pain 09/22/20 01/08/24 12/21/20 Rx #30 tabs promethazine 25 mg tablet 25 mg PO Q6H PRN nausea and 01/14/23 01/08/24 12/10/23 Rx vomiting #20 tabs folic acid 1 mg tablet 1 mg PO DAILY 30 days #30 tabs 01/18/23 01/08/24 01/07/24 Rx gabapentin 800 mg tablet 800 mg PO TID #90 tabs 01/18/23 01/09/24 01/09/24 Rx oxycodone 10 mg tablet 10 mg PO Q6H PRN Pain 03/01/23 01/08/2401/06/24 History apixaban 5 mg tablet (Eliquis) 5 mg PO BID 12/08/23 01/08/24 01/03/24 History multivitamin 1 tab PO DAILY 12/08/23 01/08/24 01/07/24 History tizanidine 4 mg capsule (Zanaflex) 4 mg PO Q6H PRN Muscle Spasm 12/08/23 01/08/24 01/08/24 History docusate sodium 100 mg capsule 100 mg PO BID #14 caps 12/12/23 01/08/24 Unknown Rx (Colace) Allergies Allergy/AdvReac Type Severity Reaction Status Date / Time amoxicillin [From Augmentin] Allergy ADR-Nausea Verified 01/09/24 09:14 carrot Allergy ADR-Vomitin Verified 01/08/24 12:22 g clavulanic acid Allergy ADR-Nausea Verified 01/09/24 09:14 [From Augmentin] [facility] Anesthesia Medical History (Updated 01/09/24 @ 09:05 by Carrillo Mckenzie DO) Gastroenteritis Colitis Hyperbilirubinemia Weight loss Leukocytosis UTI (urinary tract infection) Elevated alkaline phosphatase level Transaminitis Hypokalemia Colitis History of DVT (deep vein thrombosis) History of factor V Leiden mutation Chronic bilateral low back pain with bilateral sciatica Alcohol abuse Alcohol intoxication Biliary colic Nicotine dependence, unspecified, uncomplicated Surgical History (Updated 01/09/24 @ 09:05 by Carrillo Mckenzie DO) History of laparoscopic cholecystectomy History of bilateral mastectomy History of appendectomy Family History Mother CAD (coronary artery disease) Other Adopted Social History Smoking and tobacco/nicotine status: never used tobacco/nicotine Second hand smoke exposure: Yes Alcohol intake: current Alcohol intake frequency: few times a week Substance/Drug Use: current Substance/Drug use frequency: daily Other substance/drug use details: medicinal marijuana card Data Anesthesia Cardiac Studies: No Data to Display
[2024-01-09] MEDS: sodium chloride 0.9% 1,000 ML 30 ML IV (09:13)
--- NOTE | 2024-01-09 10:58 | PM.OP ---
Operative Report Date of procedure: January 09, 2024 Pre-op diagnosis: Subcutaneous mass of scalp Post-op diagnosis: same Procedure done: Excision of subcutaneous mass of scalp Implants: none Specimens removed/disposition: Subcutaneous mass of scalp Surgeon: Carrillo Mckenzie DO Anesthesia: General and Local Estimated blood loss (mL): 5 Complications: None apparent Brief History: This is a very pleasant 33-year-old gentleman with enlarging subcutaneous mass of the scalp/left side of his forehead who desired excision. The risks and benefits of the procedure were explained and documented. Procedure: Patient was wheeled operative room placed on the OR table in the supine position. General anesthesia was achieved with an elevated by the department of anesthesia. The forehead and scalp were inspected prepped and draped in the usual sterile fashion. A timeout was performed. All present were in agreement. 2% lidocaine with epinephrine was used to anesthetize the skin overlying the mass. A 15 blade scalpel was then used to make a 1.2 cm elliptical incision over the mass. Dissection was carried down through the dermis with a needle tip Bovie. A cystic structure was encountered subcutaneously. Alveolar tissue surrounding the lesion was transected using electrocautery. Hemostasis was achieved with electrocautery. A 1.8 cm in greatest dimension specimen was passed off. Skin was closed with interrupted subcuticular 4-0 Monocryl. Skin glue was applied. Patient tolerated procedure well.
--- NOTE | 2024-01-09 12:10 | ANE.PACU2 ---
Inpatient post-anesthesia follow up: Airway intact: Yes Vital signs: Temperature 97.0 F Pulse Rate 74 Respiratory Rate 16 Blood Pressure 123/65 Pulse Oximetry 100 Oxygen Delivery Me thod Room Air Oxygen Flow Rate 6 Fraction of Inspir ed Oxygen Hydration adequate: Yes Nausea and vomiting: No Pain level: 1 Mental status: Baseline
== END 2024-01-09 12:10 | disposition home or self-care (01) ==
PROVIDERS: PCP Family Medicine; Visit Provider Surgery
PROC: (CPT 11422; principal; 2024-01-09 10:10)
DX: D18.01 Hemangioma of skin and subcutaneous tissue (principal); Z79.01 Long term (current) use of anticoagulants; F17.200 Nicotine dependence, unspecified, uncomplicated; Z79.891 Long term (current) use of opiate analgesic; Z86.718 Personal history of other venous thrombosis and embolism
CPT/HCPCS: 11422; 88305; 88342; J1100; J2250; J2405; J2704; J3010; J7030